=== PATIENT | female | born 1940 | race Caucasian/White ===

== ENCOUNTER → 2016-10-04 | Outpatient (CLI) | payer OTHER ==
[~2016-10-04] MED LIST: ASPI81CH45 OR; ATEN-60; ESOM20CA OR; EZET10TA2; LORAZAPAM
[2016-10-04 10:44] LABS: Albumin 3.7 g/dL (3.4-5.0); BUN/Creatinine Ratio 17.9; Bilirubin, Total 0.6 mg/dL (0.2-1.0); Calcium 8.8 mg/dL (8.5-10.1); Potassium 4.1 mmol/L (3.5-5.1); Total Protein 6.8 g/dL (6.4-8.2)
[2016-10-04 10:52] LABS: Basophils # (auto) 0 uL; Basophils % (auto) 0.4 % (0.0-2.0); Eosinophils # (auto) 0.2 uL; Eosinophils % (auto) 2.5 % (0.0-7.0); Hematocrit 41.9 % (36.0-46.0); Hemoglobin 13.7 g/dL (12.2-16.2); Lymphocytes # (auto) 1.7 uL; Lymphocytes % (auto) 25.1 % (10.0-50.0); Mean Corpuscular Hemoglobin 31.4 pg (28.0-32.0); Mean Corpuscular Hgb Conc. 32.7 g/dL (32.0-36.0); Monocytes # (auto) 0.4 uL; Monocytes % (auto) 5.5 % (0.0-12.0); Neutrophils # (auto) 4.5 uL; Neutrophils % (auto) 66.5 % (37.0-80.0); Platelet Count (auto) 236 10^3/uL (140-450); Red Cell Distribution Width 13.4 % (11.6-16.0); White Blood Cell 6.8 10^3/uL (4.4-10.8)
== END | disposition home or self-care (01) ==
LOC: LAB 09:17
PROVIDERS: ATTEND Internal Medicine
DX: I10 Essential (primary) hypertension (principal); R10.9 Unspecified abdominal pain
CPT/HCPCS: 36415; 80053; 84439; 84443; 85025; 85652; 86141

== ENCOUNTER → 2016-10-29 | Outpatient (CLI) | payer OTHER ==
[~2016-10-29] VITALS: Ht 160 cm; Wt 63.5 kg
[~2016-10-29] MED LIST changes: +ADENOSINE 53 MG in GIVE UN-DILUTED 0 ML IV STA
== END | disposition home or self-care (01) ==
LOC: XYW 08:12
PROVIDERS: ATTEND Internal Medicine Cardiovascular Disease
DX: I34.0 Nonrheumatic mitral (valve) insufficiency (principal)
CPT/HCPCS: 93017; 93306; J0153

== ENCOUNTER → 2016-10-30 | Outpatient (CLI) | payer OTHER ==
[~2016-10-30] MED LIST changes: -ADENOSINE 53 MG in GIVE UN-DILUTED 0 ML IV STA
== END | disposition home or self-care (01) ==
LOC: LAB 12:52
PROVIDERS: ATTEND Internal Medicine
DX: R10.9 Unspecified abdominal pain (principal)
CPT/HCPCS: 36415; 82565; 84520

== ENCOUNTER 2016-11-05 11:10 | Inpatient (IN) | payer OTHER ==
[~2016-11-05] VITALS: Ht 160 cm; Wt 72.2 kg
[~2016-11-05 11:10] MED LIST changes: -ATEN-60; +ATEN-60 PO
[2016-11-05 12:10] LABS: Basophils # (auto) 0 uL; Basophils % (auto) 0.4 % (0.0-2.0); Eosinophils # (auto) 0.1 uL; Hematocrit 40.6 % (36.0-46.0); Hemoglobin 13.5 g/dL (12.2-16.2); Lymphocytes # (auto) 1.5 uL; Lymphocytes % (auto) 25.1 % (10.0-50.0); Mean Corpuscular Hemoglobin 31.5 pg (28.0-32.0); Mean Corpuscular Hgb Conc. 33.3 g/dL (32.0-36.0); Mean Corpuscular Volume 94.5 fL (80.0-100.0); Mean Platelet Volume 7.4 fL (7.4-10.4); Monocytes # (auto) 0.4 uL; Monocytes % (auto) 6.3 % (0.0-12.0); Neutrophils % (auto) 66.2 % (37.0-80.0); Platelet Count (auto) 280 10^3/uL (140-450); Red Cell Distribution Width 13.6 % (11.6-16.0); White Blood Cell 6.1 10^3/uL (4.4-10.8)
[2016-11-05 12:28] LABS: Albumin 3.7 g/dL (3.4-5.0); BUN/Creatinine Ratio 12.3; Calcium 8.6 mg/dL (8.5-10.1)
[2016-11-05 12:31] LABS: Bilirubin, Total 0.5 mg/dL (0.2-1.0); Total Protein 7.1 g/dL (6.4-8.2)
[2016-11-05] MEDS ORDERED: ONDANSETRON HCL 4 MG/2 ML VIAL IV ONE (13:15)
[2016-11-05] MEDS ORDERED: MORPHINE SULF INJ 2 MG/ML SYRINGE 1ML IV ONE (13:15)
[2016-11-05] MEDS ORDERED: TRAM50TA2 PO (13:27)
[2016-11-05] MEDS ORDERED: ATOR10TA52 PO (13:27)
[2016-11-05] MEDS ORDERED: CYCL1TAB18 PO (13:27)
[2016-11-05] MEDS ORDERED: NOR5T PO (13:29)
[2016-11-05] MEDS ORDERED: OMEP20CA5 PO (13:29)
[2016-11-05] MEDS ORDERED: CLON05T PO (13:29)
[2016-11-05 13:46] LABS: INR 0.94 (0.9-1.15); Prothrombin Time 10.1 sec (9.37-12.3)
[2016-11-05] MEDS ORDERED: HYDROmorphone HCL 2 MG/ML VL IV ONE (14:30)
[2016-11-05] MEDS ORDERED: ATENOLOL 50 MG TAB PO ONE ×2 (14:45→15:15)
[2016-11-05] MEDS ORDERED: ONDANSETRON HCL 4 MG/2 ML VIAL IV PRN (14:45)
[2016-11-05 14:52] LABS: Urine Bilirubin Negative (Negative); Urine Blood Negative /uL (Negative); Urine Color Yellow (Yellow); Urine Glucose Normal (Normal); Urine Ketone Negative (Negative); Urine RBC <1 /hpf (0 - 4); Urine Squamous Epithelial Cell FEW /hpf (<5); Urine Urobilinogen Normal (Negative); Urine pH 6.5 (5.0-8.0)
[2016-11-05 14:54] LABS: Urine Nitrite POSITIVE (Negative)
[2016-11-05] MEDS ORDERED: LORazepam 2MG/ML-1ML VIAL IV ONE (15:15)
[2016-11-05] MEDS ORDERED: PANTOPRAZOLE 40 MG TAB PO ONE (15:15)
[2016-11-05] MEDS: SODIUM CHLORIDE 0.9% 1,000 ML IV SCH (15:26)
[2016-11-05 16:00] VITALS: BP 146/86
[2016-11-05 17:30] VITALS: BP 146/86
[2016-11-05 21:48] VITALS: BP 148/88
[2016-11-05] MEDS: MORPHINE SULF INJ 2 MG/ML SYRINGE 1ML IV PRN (22:50)
[2016-11-05] MEDS: clonazePAM 0.5 MG TAB PO PRN (23:31)
[2016-11-06 04:37] VITALS: BP 133/74
[2016-11-06] MEDS: SODIUM CHLORIDE 0.9% 1,000 ML IV SCH (07:25)
[2016-11-06 08:00] VITALS: BP 146/91
[2016-11-06 09:00] VITALS: BP 146/91
[2016-11-06] MEDS: PANTOPRAZOLE 40 MG TAB PO SCH (10:22)
[2016-11-06] MEDS: ATENOLOL 50 MG TAB PO SCH (10:22)
[2016-11-06] MEDS: HYDROcodone-ACET 5/325MG TAB PO PRN ×2 (10:23→22:31)
[2016-11-06 17:00] VITALS: BP 134/80
[2016-11-06 22:00] VITALS: BP 144/85
[2016-11-06] MEDS: clonazePAM 0.5 MG TAB PO PRN (22:31)
[2016-11-07] MEDS: SODIUM CHLORIDE 0.9% 1,000 ML IV SCH ×3 (00:27→21:24)
[2016-11-07 05:00] VITALS: BP 116/65
[2016-11-07 08:00] VITALS: BP 120/69
[2016-11-07 09:00] VITALS: BP 120/69
[2016-11-07] MEDS: PANTOPRAZOLE 40 MG TAB PO SCH (09:43)
[2016-11-07] MEDS: ATENOLOL 50 MG TAB PO SCH (09:43)
[2016-11-07] MEDS: MORPHINE SULF INJ 2 MG/ML SYRINGE 1ML IV PRN (09:44)
[2016-11-07] MEDS: HYDROmorphone HCL 2 MG/ML VL IV PRN (12:51)
[2016-11-07] MEDS ORDERED: ceFAZolin 1GM/50ML D5W 50 ML IV ONE (14:06)
[2016-11-07] MEDS ORDERED: HYDROmorphone HCL 2 MG/ML VL IV PRN (16:30)
[2016-11-07] MEDS ORDERED: ONDANSETRON HCL 4 MG/2 ML VIAL IV ONE (16:30)
[2016-11-07] MEDS ORDERED: ENOXAPARIN SOD 40 MG/0.4 ML SYRINGE SC ONE (16:45)
[2016-11-07] MEDS: ceFAZolin 1GM/50ML D5W 50 ML IV SCH ×2 (17:51→23:54)
[2016-11-07] MEDS: clonazePAM 0.5 MG TAB PO PRN (21:24)
[2016-11-07] MEDS: HYDROcodone-ACET 5/325MG TAB PO PRN (21:24)
[2016-11-07 22:12] VITALS: BP 150/88
[2016-11-08] MEDS: HYDROmorphone HCL 2 MG/ML VL IV PRN
[2016-11-08 05:08] VITALS: BP 136/81
[2016-11-08] MEDS: ceFAZolin 1GM/50ML D5W 50 ML IV SCH ×3 (05:22→17:26)
[2016-11-08 06:10] LABS: Basophils # (auto) 0 uL; Basophils % (auto) 0.1 % (0.0-2.0); Eosinophils # (auto) 0 uL; Hematocrit 38.2 % (36.0-46.0); Hemoglobin 12.9 g/dL (12.2-16.2); Lymphocytes # (auto) 1.2 uL; Lymphocytes % (auto) 13.3 % (10.0-50.0); Mean Corpuscular Hemoglobin 31.7 pg (28.0-32.0); Mean Corpuscular Hgb Conc. 33.7 g/dL (32.0-36.0); Mean Corpuscular Volume 94.2 fL (80.0-100.0); Mean Platelet Volume 7.6 fL (7.4-10.4); Monocytes # (auto) 0.3 uL; Monocytes % (auto) 3.5 % (0.0-12.0); Neutrophils # (auto) 7.6 uL; Neutrophils % (auto) 83.1 % (37.0-80.0); Platelet Count (auto) 275 10^3/uL (140-450); Red Cell Distribution Width 13.3 % (11.6-16.0); White Blood Cell 9.2 10^3/uL (4.4-10.8)
[2016-11-08 06:28] LABS: Calcium 8.2 mg/dL (8.5-10.1); Potassium 4.1 mmol/L (3.5-5.1)
[2016-11-08 06:32] LABS: BUN/Creatinine Ratio 18.3
[2016-11-08 07:40] VITALS: BP 132/79
[2016-11-08 09:00] VITALS: BP 132/79
[2016-11-08] MEDS: ENOXAPARIN SOD 40 MG/0.4 ML SYRINGE SC SCH (10:31)
[2016-11-08] MEDS: PANTOPRAZOLE 40 MG TAB PO SCH (10:31)
[2016-11-08] MEDS: ATENOLOL 50 MG TAB PO SCH (10:33)
[2016-11-08] MEDS: HYDROcodone-ACET 5/325MG TAB PO PRN ×2 (11:47→21:29)
[2016-11-08 13:00] VITALS: BP 145/75
[2016-11-08 18:03] VITALS: BP 141/73
[2016-11-08] MEDS ORDERED: LACTULOSE 20Gm/30ML SOLN PO ONE (19:00)
[2016-11-08] MEDS: clonazePAM 0.5 MG TAB PO PRN (21:28)
[2016-11-08 21:38] VITALS: BP 141/75
[2016-11-09 04:42] VITALS: BP 135/76
[2016-11-09 06:36] LABS: Hemoglobin 12.7 g/dL (12.2-16.2)
[2016-11-09 08:00] VITALS: BP 128/78
[2016-11-09 09:01] VITALS: BP 128/78
[2016-11-09] MEDS: PANTOPRAZOLE 40 MG TAB PO SCH (10:16)
[2016-11-09] MEDS: ATENOLOL 50 MG TAB PO SCH (10:20)
[2016-11-09] MEDS: ENOXAPARIN SOD 40 MG/0.4 ML SYRINGE SC SCH (10:21)
[2016-11-09] MEDS: HYDROcodone-ACET 5/325MG TAB PO PRN ×2 (10:21→20:15)
[2016-11-09 13:09] VITALS: BP 130/80
[2016-11-09 17:10] VITALS: BP 131/87
[2016-11-09] MEDS: clonazePAM 0.5 MG TAB PO PRN (21:47)
[2016-11-09 22:00] VITALS: BP 151/77
[2016-11-10] VITALS (7 sets, daily range): BP systolic 130–149; BP diastolic 73–99
[2016-11-10] MEDS: HYDROcodone-ACET 5/325MG TAB PO PRN ×2 (04:42→23:03)
[2016-11-10 06:44] LABS: Hematocrit 35.8 % (36.0-46.0); Hemoglobin 11.9 g/dL (12.2-16.2)
[2016-11-10] MEDS: ATENOLOL 50 MG TAB PO SCH (10:22)
[2016-11-10] MEDS: PANTOPRAZOLE 40 MG TAB PO SCH (10:22)
[2016-11-10] MEDS: ENOXAPARIN SOD 40 MG/0.4 ML SYRINGE SC SCH (10:23)
[2016-11-10] MEDS: clonazePAM 0.5 MG TAB PO PRN (23:03)
[2016-11-11 05:17] VITALS: BP 133/84
[2016-11-11 07:38] LABS: Hematocrit 35.1 % (36.0-46.0); Hemoglobin 11.7 g/dL (12.2-16.2)
[2016-11-11 08:00] VITALS: BP 132/81
[2016-11-11] MEDS: HYDROcodone-ACET 5/325MG TAB PO PRN (08:53)
[2016-11-11] MEDS: PANTOPRAZOLE 40 MG TAB PO SCH (08:54)
[2016-11-11] MEDS: ATENOLOL 50 MG TAB PO SCH (08:54)
[2016-11-11] MEDS: ENOXAPARIN SOD 40 MG/0.4 ML SYRINGE SC SCH (08:55)
[2016-11-11 09:00] VITALS: BP 132/81
[2016-11-11 13:00] VITALS: BP 155/98
[2016-11-11 13:06] VITALS: BP 132/81
[2016-11-11 17:00] VITALS: BP 161/85
== END 2016-11-11 17:15 | disposition home or self-care (01) | DRG 482 ==
LOC: ER 11:12 → TELE 11:13 → WEST WING 15:40
PROVIDERS: ADMIT Internal Medicine; ATTEND Internal Medicine
PROC: 0QS704Z Reposition Left Upper Femur with Internal Fixation Device, Open Approach (ICD-10-PCS; principal; 2016-11-07 15:07)
DX: S72.032A Displaced midcervical fracture of left femur, initial encounter for closed fracture (principal); E78.5 Hyperlipidemia, unspecified; I10 Essential (primary) hypertension; W18.11XA Fall from or off toilet without subsequent striking against object, initial encounter; Z90.89 Acquired absence of other organs; Y93.89 Activity, other specified; Y92.89 Other specified places as the place of occurrence of the external cause; Y99.8 Other external cause status; Z79.899 Other long term (current) drug therapy
CPT/HCPCS: 36415; 51702; 71010; 72192; 73501; 73502; 73721; 76000; 80048; 80053; 81001; 83735; 85014; 85018; 85025; 85610; 85730; 93005; 93970; 94761; 96374; 96375; 97110; 97116; 97530; C1713; J0690; J2405

== ENCOUNTER → 2017-04-09 | Outpatient (CLI) | payer OTHER ==
[~2017-04-09] MED LIST changes: +ATOR10TA52 PO; +CLON05T PO; +CYCL1TAB18 PO; -ESOM20CA OR; -EZET10TA2; +HYDR-4663 PO; -LORAZAPAM; +OMEP20CA74 PO; +TRAM50TA2 PO
[2017-04-09 09:35] LABS: Basophils # (auto) 0 uL; Basophils % (auto) 0.4 % (0.0-2.0); Eosinophils # (auto) 0.1 uL; Eosinophils % (auto) 1.5 % (0.0-7.0); Hematocrit 41.4 % (36.0-46.0); Hemoglobin 13.9 g/dL (12.2-16.2); Lymphocytes # (auto) 1.8 uL; Lymphocytes % (auto) 21.9 % (10.0-50.0); Mean Corpuscular Hemoglobin 33.1 pg (28.0-32.0); Mean Corpuscular Hgb Conc. 33.5 g/dL (32.0-36.0); Mean Corpuscular Volume 98.7 fL (80.0-100.0); Mean Platelet Volume 7.1 fL (6.9-10.8); Monocytes # (auto) 0.4 uL; Monocytes % (auto) 5.4 % (0.0-12.0); Neutrophils # (auto) 5.9 uL; Neutrophils % (auto) 70.8 % (37.0-80.0); Platelet Count (auto) 211 10^3/uL (140-450); Red Cell Distribution Width 13.3 % (11.8-14.3); White Blood Cell 8.3 10^3/uL (4.4-10.8)
[2017-04-09 10:10] LABS: Urine Bilirubin Negative (Negative); Urine Blood Negative /uL (Negative); Urine Color Yellow (Yellow); Urine Glucose Normal (Normal); Urine Ketone Negative (Negative); Urine Mucus FEW (None Seen); Urine Nitrite POSITIVE (Negative); Urine RBC 1 /hpf (0 - 4); Urine Squamous Epithelial Cell MOD /hpf (<5); Urine Urobilinogen Normal (Negative)
[2017-04-09 10:32] LABS: Albumin 3.9 g/dL (3.4-5.0); BUN/Creatinine Ratio 19.2; Bilirubin, Total 0.4 mg/dL (0.2-1.0); Calcium 8.8 mg/dL (8.5-10.1); Potassium 4.2 mmol/L (3.5-5.1); Total Protein 7.3 g/dL (6.4-8.2)
== END | disposition home or self-care (01) ==
LOC: LAB 09:09
PROVIDERS: ATTEND Internal Medicine
DX: I10 Essential (primary) hypertension (principal); R51 Headache
CPT/HCPCS: 36415; 80053; 80061; 81001; 82043; 84439; 84443; 85025; 85652; 86141

== ENCOUNTER 2017-07-23 21:27 | Emergency (ER) | payer OTHER ==
[~2017-07-23] VITALS: Ht 162.6 cm; Wt 62.6 kg
[~2017-07-23 21:27] MED LIST changes: -HYDR-4663 PO; +HYDR-4683 PO
[2017-07-23 23:02] LABS: Basophils # (auto) 0 uL; Basophils % (auto) 0.6 % (0.0-2.0); Eosinophils # (auto) 0.1 uL; Eosinophils % (auto) 1.4 % (0.0-7.0); Hematocrit 39.8 % (36.0-46.0); Hemoglobin 13.3 g/dL (12.2-16.2); Lymphocytes # (auto) 2.3 uL; Lymphocytes % (auto) 33.1 % (10.0-50.0); Mean Corpuscular Hemoglobin 32.6 pg (28.0-32.0); Mean Corpuscular Hgb Conc. 33.4 g/dL (32.0-36.0); Mean Corpuscular Volume 97.6 fL (80.0-100.0); Monocytes # (auto) 0.6 uL; Monocytes % (auto) 8.6 % (0.0-12.0); Neutrophils % (auto) 56.3 % (37.0-80.0); Nucleated Red Blood Cells % 0.1 %; Platelet Count (auto) 220 10^3/uL (140-450); Red Blood Cells 4.08 10^6/uL (4.0-5.20); Red Cell Distribution Width 13.4 % (11.8-14.3)
[2017-07-23 23:14] LABS: Alanine Aminotransferase 50 U/L (13-56); Albumin 3.6 g/dL (3.4-5.0); Amylase 38 U/L (25-115); Anion Gap 5 (5-15); Aspartate Aminotransferase 43 U/L (15-37); BUN/Creatinine Ratio 14.8; Blood Urea Nitrogen 13 mg/dL (7-18); Calcium 8.5 mg/dL (8.5-10.1); Carbon Dioxide 28 mmol/L (21-32); Chloride 107 mmol/L (98-107); GFR African American 80 mL/min; GFR Non-African American 66 mL/min; Glucose 103 mg/dL (74-106); Lipase 96 U/L (73-393); Potassium 4.2 mmol/L (3.5-5.1); Sodium 140 mmol/L (136-145)
[2017-07-23 23:15] LABS: Urine Bacteria NONE SEEN /hpf (None Seen); Urine Blood TRACE /uL (Negative); Urine Specific Gravity 1.014 (1.001-1.035); Urine WBC 3 /hpf (0 - 5)
[2017-07-23 23:18] LABS: Alkaline Phosphatase 96 U/L (45-117); Bilirubin, Total 0.3 mg/dL (0.2-1.0)
[2017-07-24 00:17] LABS: INR 0.91 (0.9-1.15); Partial Thromboplastin Time 26.2 sec (22.64-33.71); Prothrombin Time 9.9 sec (9.37-12.3)
[2017-07-24 05:25] VITALS: BP 179/82
[2017-07-24] MEDS ORDERED: traMADol HCL 50 MG TAB PO ONE (05:45)
[2017-07-24] MEDS ORDERED: traMADol HCL 50 MG TAB ONE (05:45)
[2017-07-24] MEDS ORDERED: cloNIDine HCL 0.1 MG TAB ONE (06:27)
[2017-07-24] MEDS ORDERED: cloNIDine HCL 0.1 MG TAB PO ONE (06:45)
== END 2017-07-24 07:18 | disposition home or self-care (01) ==
LOC: ER 21:27
DX: B02.9 Zoster without complications (principal); N39.0 Urinary tract infection, site not specified; K57.90 Diverticulosis of intestine, part unspecified, without perforation or abscess without bleeding; R91.1 Solitary pulmonary nodule; E78.00 Pure hypercholesterolemia, unspecified; I10 Essential (primary) hypertension; Z90.89 Acquired absence of other organs; Z79.82 Long term (current) use of aspirin; Z79.899 Other long term (current) drug therapy
CPT/HCPCS: 36415; 74176; 80053; 81001; 82150; 83690; 84484; 84702; 85025; 85610; 85730; 93005

== ENCOUNTER 2017-11-12 11:11 | Emergency (ER) | payer OTHER ==
[~2017-11-12] VITALS: Ht 160 cm; Wt 62.6 kg
[2017-11-12 11:57] LABS: Urine Bacteria FEW /hpf (None Seen); Urine Blood TRACE /uL (Negative); Urine Specific Gravity 1.008 (1.001-1.035); Urine WBC 9 /hpf (0 - 5)
[2017-11-12 12:22] LABS: Albumin 3.9 g/dL (3.4-5.0); Anion Gap 9 (5-15); Basophils # (auto) 0 uL; Basophils % (auto) 0.6 % (0.0-2.0); Blood Urea Nitrogen 13 mg/dL (7-18); Calcium 8.7 mg/dL (8.5-10.1); Carbon Dioxide 23 mmol/L (21-32); Chloride 109 mmol/L (98-107); Eosinophils # (auto) 0.1 uL; Eosinophils % (auto) 1.2 % (0.0-7.0); Glucose 116 mg/dL (74-106); Hematocrit 41.7 % (36.0-46.0); Lymphocytes # (auto) 1.7 uL; Lymphocytes % (auto) 22.6 % (10.0-50.0); Magnesium 2.6 mg/dL (1.6-2.6); Mean Corpuscular Hgb Conc. 33.6 g/dL (32.0-36.0); Mean Corpuscular Volume 98.2 fL (80.0-100.0); Monocytes # (auto) 0.6 uL; Monocytes % (auto) 7.3 % (0.0-12.0); Neutrophils # (auto) 5.3 uL; Neutrophils % (auto) 68.3 % (37.0-80.0); Nucleated Red Blood Cells % 0.1 %; Platelet Count (auto) 217 10^3/uL (140-450); Potassium 4.2 mmol/L (3.5-5.1); Red Blood Cells 4.25 10^6/uL (4.0-5.20); Red Cell Distribution Width 13.2 % (11.8-14.3); Sodium 141 mmol/L (136-145); White Blood Cell 7.7 10^3/uL (4.4-10.8)
[2017-11-12 12:24] LABS: Alanine Aminotransferase 30 U/L (13-56); Aspartate Aminotransferase 22 U/L (15-37); BUN/Creatinine Ratio 15.9; GFR African American 87 mL/min; GFR Non-African American 72 mL/min
[2017-11-12 12:29] LABS: Alkaline Phosphatase 103 U/L (45-117); Bilirubin, Total 0.5 mg/dL (0.2-1.0); Total Protein 7.4 g/dL (6.4-8.2)
[2017-11-12 17:48] VITALS: BP 150/78
[2017-11-12] MEDS ORDERED: cefTRIAXone W LIDOCAINE 1 GM IM IM ONE (18:00)
== END 2017-11-12 19:06 | disposition home or self-care (01) ==
LOC: ER 11:11
DX: J44.9 Chronic obstructive pulmonary disease, unspecified (principal); N39.0 Urinary tract infection, site not specified; I10 Essential (primary) hypertension; E78.5 Hyperlipidemia, unspecified
CPT/HCPCS: 36415; 71046; 80053; 81001; 83735; 83880; 84484; 85025; 85379; 93005; 96372

== ENCOUNTER 2018-04-03 08:00 | Day surgery (SDC) | payer OTHER ==
[2018-03-30 10:44] LABS: Basophils # (auto) 0.1 uL; Basophils % (auto) 0.7 % (0.0-2.0); Eosinophils # (auto) 0.2 uL; Eosinophils % (auto) 2.1 % (0.0-7.0); Hematocrit 42.4 % (36.0-46.0); Hemoglobin 13.8 g/dL (12.2-16.2); Lymphocytes # (auto) 2.8 uL; Mean Corpuscular Hemoglobin 31.6 pg (28.0-32.0); Mean Corpuscular Hgb Conc. 32.6 g/dL (32.0-36.0); Monocytes # (auto) 0.6 uL; Monocytes % (auto) 8.6 % (0.0-12.0); Neutrophils # (auto) 3.6 uL; Neutrophils % (auto) 49.6 % (37.0-80.0); Platelet Count (auto) 219 10^3/uL (140-450); Red Blood Cells 4.37 10^6/uL (4.0-5.20); Red Cell Distribution Width 13.8 % (11.8-14.3); White Blood Cell 7.3 10^3/uL (4.4-10.8)
[2018-03-30 11:05] LABS: INR 0.91 (0.9-1.15); Partial Thromboplastin Time 25.8 sec (23.78-33.04); Prothrombin Time 9.8 sec (9.27-12.13)
[~2018-04-03] VITALS: Ht 160 cm; Wt 61.2 kg
[~2018-04-03 08:00] MED LIST changes: -CYCL1TAB18 PO; +LACT10SO66 PO; -TRAM50TA2 PO
[2018-04-03] MEDS ORDERED: diphenhdrAMINE HCL 50 MG/1 ML VL ONE (08:19)
[2018-04-03] MEDS ORDERED: SODIUM CHLORIDE LOCK 10 ML ONE (08:19)
[2018-04-03] MEDS ORDERED: LIDOCAINE VISCOUS 2% 15ML UD ONE (08:19)
[2018-04-03] MEDS ORDERED: NALOXONE HCL 0.4 MG/ML VIAL ONE (08:20)
[2018-04-03] MEDS ORDERED: FLUMAZENIL 0.1 MG/ML INJ 10ML MDV IV ONE (08:20)
[2018-04-03] MEDS: fentaNYL CITRATE 100 MCG/2 ML VL ONE ×2 (08:54→08:57)
[2018-04-03] MEDS: MIDAZOLAM HCL 5 MG/ML-1ML VIAL ONE ×2 (08:54→08:57)
[2018-04-03 09:34] VITALS: BP 133/80
== END 2018-04-03 09:40 | disposition home or self-care (01) ==
LOC: GI 08:00
PROVIDERS: ATTEND Internal Medicine Gastroenterology
DX: K44.9 Diaphragmatic hernia without obstruction or gangrene (principal); I20.9 Angina pectoris, unspecified; Z98.890 Other specified postprocedural states
CPT/HCPCS: 36415; 43235; 85025; 85610; 85730; A6257; J2250; J3010; J7030

== ENCOUNTER 2018-05-24 00:36 | Inpatient (IN) | payer MEDICARE, OTHER ==
[~2018-05-24] VITALS: Ht 160 cm; Wt 63.2 kg
[2018-05-24] MEDS ORDERED: ETOMIDATE (2MG/ML) 20ML VIAL IV ONE ×2 (01:45→05:00)
[2018-05-24] MEDS ORDERED: MORPHINE SULFATE 4 MG/ML SYR/VIAL ONE (03:02)
[2018-05-24] MEDS ORDERED: ONDANSETRON HCL 4 MG/2 ML VIAL ONE (03:02)
[2018-05-24] MEDS ORDERED: LORazepam 2MG/ML-1ML VIAL ONE (03:09)
[2018-05-24] MEDS ORDERED: ONDANSETRON HCL 4 MG/2 ML VIAL IV ONE ×2 (05:00→12:45)
[2018-05-24] MEDS ORDERED: MORPHINE SULFATE 4 MG/ML SYR/VIAL IV ONE ×2 (05:00→14:00)
[2018-05-24] MEDS ORDERED: LORazepam 2MG/ML-1ML VIAL IV ONE (05:00)
[2018-05-24] MEDS ORDERED: ACETAMINOPHEN 325 MG TAB PO PRN (05:45)
[2018-05-24] MEDS ORDERED: MORPHINE SULFATE 4 MG/ML SYR/VIAL IV PRN ×3 (05:45→13:45)
[2018-05-24] MEDS ORDERED: ONDANSETRON HCL 4 MG/2 ML VIAL IV PRN (05:45)
[2018-05-24 07:30] VITALS: BP 116/70
[2018-05-24 09:00] VITALS: BP 116/70
[2018-05-24 09:58] LABS: Basophils # (auto) 0 uL; Basophils % (auto) 0.2 % (0.0-2.0); Eosinophils # (auto) 0 uL; Eosinophils % (auto) 0.3 % (0.0-7.0); Hemoglobin 12.9 g/dL (12.2-16.2); Lymphocytes # (auto) 1.6 uL; Lymphocytes % (auto) 14.7 % (10.0-50.0); Mean Corpuscular Hemoglobin 32.2 pg (28.0-32.0); Mean Corpuscular Volume 97.3 fL (80.0-100.0); Monocytes # (auto) 1.1 uL; Monocytes % (auto) 9.7 % (0.0-12.0); Neutrophils # (auto) 8.4 uL; Neutrophils % (auto) 75.1 % (37.0-80.0); Nucleated Red Blood Cells % 0.1 %; Platelet Count (auto) 207 10^3/uL (140-450); Red Cell Distribution Width 13.8 % (11.8-14.3); White Blood Cell 11.1 10^3/uL (4.4-10.8)
[2018-05-24] MEDS: ATENOLOL 25 MG TAB PO SCH ×3 (10:00→22:07)
[2018-05-24 10:06] LABS: Albumin 3.6 g/dL (3.4-5.0); Calcium 8.1 mg/dL (8.5-10.1); Potassium 3.6 mmol/L (3.5-5.1)
[2018-05-24] MEDS: ENOXAPARIN SOD 40 MG/0.4 ML SYRINGE SC SCH (10:09)
[2018-05-24 10:10] LABS: Bilirubin, Total 0.5 mg/dL (0.2-1.0); Total Protein 6.8 g/dL (6.4-8.2)
[2018-05-24] MEDS ORDERED: PANT40TA2 PO (11:13)
[2018-05-24] MEDS ORDERED: HYDR-4683 PO (11:23)
[2018-05-24] MEDS ORDERED: ATOR10TA PO (11:27)
[2018-05-24] MEDS ORDERED: CLON05T PO (11:27)
[2018-05-24 12:13] LABS: INR 0.9 (0.9-1.15); Partial Thromboplastin Time 24.5 sec (23.78-33.04); Prothrombin Time 9.7 sec (9.27-12.13)
[2018-05-24] MEDS ORDERED: KETOROLAC TROMETH 30 MG/ML 1ML VIAL IV ONE (12:45)
[2018-05-24] MEDS ORDERED: LABETALOL HCL 5 MG/ML 4ML SYRINGE IV PRN (12:45)
[2018-05-24] MEDS ORDERED: MIDAZOLAM HCL 1MG/1ML-2 ML VIAL IV PRN (12:45)
[2018-05-24] MEDS ORDERED: ePHEDrine SULFATE 50 MG/ML AMP IV PRN (12:45)
[2018-05-24] MEDS ORDERED: HYDROmorphone HCL 2 MG/ML VL IV PRN (12:45)
[2018-05-24] MEDS ORDERED: fentaNYL CITRATE 100 MCG/2 ML VL ONE (12:57)
[2018-05-24] MEDS ORDERED: MIDAZOLAM HCL 1MG/1ML-2 ML VIAL ONE (12:57)
[2018-05-24 13:00] VITALS: BP 135/72
[2018-05-24] MEDS ORDERED: DEXAMETHASONE SOD PHOS 10MG/1ML VIAL INJ ONE (13:03)
[2018-05-24] MEDS ORDERED: PROPOFOL 10 MG/ML 20 ML IV ONE (13:03)
[2018-05-24] MEDS ORDERED: NITROGLYCERIN 0.4 MG SL TAB SL PRN (13:45)
[2018-05-24 17:00] VITALS: BP 134/76
[2018-05-24 22:00] VITALS: BP 143/78
[2018-05-24] MEDS: ATORVASTATIN 20 MG TAB PO SCH (22:06)
[2018-05-24] MEDS ORDERED: TEMAZEPAM 15 MG CAP PO ONE (22:45)
[2018-05-25 05:11] VITALS: BP 116/67
[2018-05-25 06:19] LABS: Basophils # (auto) 0 uL; Basophils % (auto) 0.1 % (0.0-2.0); Eosinophils # (auto) 0 uL; Hematocrit 37.8 % (36.0-46.0); Hemoglobin 12.6 g/dL (12.2-16.2); Lymphocytes % (auto) 10.6 % (10.0-50.0); Mean Corpuscular Hemoglobin 32.8 pg (28.0-32.0); Mean Corpuscular Hgb Conc. 33.4 g/dL (32.0-36.0); Mean Corpuscular Volume 98.1 fL (80.0-100.0); Monocytes # (auto) 0.6 uL; Monocytes % (auto) 6.8 % (0.0-12.0); Neutrophils # (auto) 7.7 uL; Neutrophils % (auto) 82.5 % (37.0-80.0); Platelet Count (auto) 199 10^3/uL (140-450); Red Blood Cells 3.85 10^6/uL (4.0-5.20); Red Cell Distribution Width 13.9 % (11.8-14.3); White Blood Cell 9.4 10^3/uL (4.4-10.8)
[2018-05-25] MEDS: PANTOPRAZOLE 40 MG TAB PO SCH (06:19)
[2018-05-25 06:31] LABS: Albumin 3.2 g/dL (3.4-5.0); Calcium 8.4 mg/dL (8.5-10.1); Potassium 4.3 mmol/L (3.5-5.1)
[2018-05-25 06:34] LABS: Bilirubin, Total 0.9 mg/dL (0.2-1.0); Total Protein 6.6 g/dL (6.4-8.2)
[2018-05-25] MEDS: HYDROcodone-ACET 5/325MG TAB PO PRN ×2 (08:29→18:16)
[2018-05-25 09:00] VITALS: BP 144/78
[2018-05-25] MEDS: ATENOLOL 25 MG TAB PO SCH ×2 (10:38→21:56)
[2018-05-25] MEDS: ENOXAPARIN SOD 40 MG/0.4 ML SYRINGE SC SCH (10:38)
[2018-05-25 12:46] VITALS: BP 144/76
[2018-05-25 16:57] VITALS: BP 134/60
[2018-05-25] MEDS: DOCUSATE SOD 100 MG CAP PO PRN (18:16)
[2018-05-25] MEDS: ATORVASTATIN 20 MG TAB PO SCH (21:56)
[2018-05-25 21:58] VITALS: BP 123/66
[2018-05-26] MEDS ORDERED: TEMAZEPAM 15 MG CAP PO ONE (00:45)
[2018-05-26 05:00] VITALS: BP 142/74
[2018-05-26 05:44] LABS: Basophils # (auto) 0 uL; Basophils % (auto) 0.1 % (0.0-2.0); Eosinophils # (auto) 0 uL; Eosinophils % (auto) 0.4 % (0.0-7.0); Hematocrit 34.6 % (36.0-46.0); Hemoglobin 11.7 g/dL (12.2-16.2); Lymphocytes # (auto) 1.7 uL; Lymphocytes % (auto) 19.2 % (10.0-50.0); Mean Corpuscular Hemoglobin 32.9 pg (28.0-32.0); Mean Corpuscular Hgb Conc. 33.7 g/dL (32.0-36.0); Mean Corpuscular Volume 97.6 fL (80.0-100.0); Monocytes # (auto) 0.9 uL; Monocytes % (auto) 10.2 % (0.0-12.0); Neutrophils % (auto) 70.1 % (37.0-80.0); Platelet Count (auto) 184 10^3/uL (140-450); Red Blood Cells 3.55 10^6/uL (4.0-5.20); White Blood Cell 8.6 10^3/uL (4.4-10.8)
[2018-05-26] MEDS: DOCUSATE SOD 100 MG CAP PO PRN (06:14)
[2018-05-26] MEDS: PANTOPRAZOLE 40 MG TAB PO SCH (06:14)
[2018-05-26] MEDS: HYDROcodone-ACET 5/325MG TAB PO PRN (06:15)
[2018-05-26 09:00] VITALS: BP 138/86
[2018-05-26] MEDS: ATENOLOL 25 MG TAB PO SCH (10:37)
[2018-05-26] MEDS: ENOXAPARIN SOD 40 MG/0.4 ML SYRINGE SC SCH (10:38)
[2018-05-26 11:16] VITALS: BP 138/86
[2018-05-26 13:00] VITALS: BP 129/73
== END 2018-05-26 13:35 | disposition home or self-care (01) | DRG 563 ==
LOC: ER 00:36 → EDBD 00:36 → MERGE 03:46 → OVERFLOW 03:46 → WEST WING 09:07 → TELE-WESTW 19:06
PROVIDERS: ADMIT Nurse Practitioner; ATTEND Family Medicine
PROC: 0RSJXZZ Reposition Right Shoulder Joint, External Approach (ICD-10-PCS; principal; 2018-05-25)
DX: S42.251A Displaced fracture of greater tuberosity of right humerus, initial encounter for closed fracture (principal); E78.00 Pure hypercholesterolemia, unspecified; E78.5 Hyperlipidemia, unspecified; I10 Essential (primary) hypertension; M19.019 Primary osteoarthritis, unspecified shoulder; S06.0X0A Concussion without loss of consciousness, initial encounter; W01.0XXA Fall on same level from slipping, tripping and stumbling without subsequent striking against object, initial encounter; Y93.89 Activity, other specified; Y99.8 Other external cause status; Y92.090 Kitchen in other non-institutional residence as the place of occurrence of the external cause
CPT/HCPCS: 23650; 36415; 70450; 71045; 73030; 73060; 76000; 80053; 83880; 84484; 85025; 85610; 85730; 86850; 86900; 86901; 93005; 93306; 93886; 93971; 96374; 96375; 99152; 99291; G0378; J1100; J1885; J2250; J2405; J2704

== ENCOUNTER → 2018-06-23 | Outpatient (CLI) | payer OTHER ==
[~2018-06-23] MED LIST changes: +ATOR10TA PO; +PANT40TA2 PO
== END | disposition home or self-care (01) ==
LOC: LAB 11:00
PROVIDERS: ATTEND Physician Assistant
DX: L57.0 Actinic keratosis (principal)

== ENCOUNTER → 2018-09-17 | Outpatient (CLI) | payer OTHER ==
[2018-09-17 09:48] LABS: Basophils # (auto) 0 uL; Basophils % (auto) 0.4 % (0.0-2.0); Eosinophils # (auto) 0.1 uL; Eosinophils % (auto) 1.3 % (0.0-7.0); Hematocrit 39.8 % (36.0-46.0); Hemoglobin 13.1 g/dL (12.2-16.2); Lymphocytes # (auto) 1.9 uL; Lymphocytes % (auto) 28.6 % (10.0-50.0); Mean Corpuscular Hemoglobin 32.1 pg (28.0-32.0); Mean Corpuscular Volume 97.2 fL (80.0-100.0); Monocytes # (auto) 0.4 uL; Monocytes % (auto) 6.3 % (0.0-12.0); Neutrophils # (auto) 4.3 uL; Neutrophils % (auto) 63.4 % (37.0-80.0); Platelet Count (auto) 219 10^3/uL (140-450); Red Blood Cells 4.09 10^6/uL (4.0-5.20); Red Cell Distribution Width 13.3 % (11.8-14.3); White Blood Cell 6.7 10^3/uL (4.4-10.8)
[2018-09-17 09:58] LABS: Albumin 3.6 g/dL (3.4-5.0); Calcium 8.7 mg/dL (8.5-10.1); Potassium 4.2 mmol/L (3.5-5.1)
[2018-09-17 10:01] LABS: BUN/Creatinine Ratio 16.7; Bilirubin, Total 0.6 mg/dL (0.2-1.0); Total Protein 6.9 g/dL (6.4-8.2)
== END | disposition home or self-care (01) ==
LOC: LAB 09:26
PROVIDERS: ATTEND Internal Medicine
DX: K62.5 Hemorrhage of anus and rectum (principal); I10 Essential (primary) hypertension
CPT/HCPCS: 36415; 80053; 82270; 85025

== ENCOUNTER → 2018-09-28 | Outpatient (CLI) | payer OTHER ==
[2018-09-28 16:00] LABS: Basophils # (auto) 0 uL; Basophils % (auto) 0.4 % (0.0-2.0); Eosinophils # (auto) 0.1 uL; Eosinophils % (auto) 1.2 % (0.0-7.0); Hematocrit 37.7 % (36.0-46.0); Hemoglobin 12.6 g/dL (12.2-16.2); Lymphocytes % (auto) 30.6 % (10.0-50.0); Mean Corpuscular Hemoglobin 32.5 pg (28.0-32.0); Mean Corpuscular Hgb Conc. 33.4 g/dL (32.0-36.0); Mean Corpuscular Volume 97.3 fL (80.0-100.0); Monocytes # (auto) 0.4 uL; Monocytes % (auto) 5.7 % (0.0-12.0); Neutrophils # (auto) 4.1 uL; Neutrophils % (auto) 62.1 % (37.0-80.0); Platelet Count (auto) 224 10^3/uL (140-450); Red Blood Cells 3.88 10^6/uL (4.0-5.20); Red Cell Distribution Width 14.3 % (11.8-14.3); White Blood Cell 6.6 10^3/uL (4.4-10.8)
== END | disposition home or self-care (01) ==
LOC: LAB 15:19
PROVIDERS: ATTEND Internal Medicine
DX: I10 Essential (primary) hypertension (principal); M25.50 Pain in unspecified joint
CPT/HCPCS: 36415; 82085; 82550; 84439; 84443; 85025; 85652; 86038; 86200; 86431; 86812

== ENCOUNTER 2018-12-30 10:47 | Emergency (ER) | payer OTHER ==
[~2018-12-30] VITALS: Ht 162.6 cm; Wt 59.0 kg
[2018-12-30 12:39] VITALS: BP 148/91
[2018-12-30] MEDS ORDERED: KETOROLAC TROMETH 30 MG/ML 1ML VIAL IM ONE (14:30)
[2018-12-30] MEDS ORDERED: KETOROLAC TROMETH 60MG/2ML VIAL IM ONE (15:00)
== END 2018-12-30 15:23 | disposition home or self-care (01) ==
LOC: ER 10:50
DX: S39.012A Strain of muscle, fascia and tendon of lower back, initial encounter (principal); M47.897 Other spondylosis, lumbosacral region; F41.9 Anxiety disorder, unspecified; I10 Essential (primary) hypertension; E78.5 Hyperlipidemia, unspecified; Z79.82 Long term (current) use of aspirin; Z79.899 Other long term (current) drug therapy; W18.39XA Other fall on same level, initial encounter; Y93.89 Activity, other specified; Y92.098 Other place in other non-institutional residence as the place of occurrence of the external cause; Y99.8 Other external cause status
CPT/HCPCS: 72100; 72220; 96372; 99283; J1885

== ENCOUNTER 2019-04-06 10:57 | Day surgery (SDC) | payer OTHER ==
[2019-04-01 14:33] LABS: Basophils # (auto) 0 uL; Basophils % (auto) 0.5 % (0.0-2.0); Eosinophils # (auto) 0.1 uL; Eosinophils % (auto) 1.9 % (0.0-7.0); Hematocrit 43.7 % (36.0-46.0); Hemoglobin 14.6 g/dL (12.2-16.2); Lymphocytes # (auto) 2.9 uL; Lymphocytes % (auto) 41.9 % (10.0-50.0); Mean Corpuscular Hemoglobin 32.3 pg (28.0-32.0); Mean Corpuscular Hgb Conc. 33.4 g/dL (32.0-36.0); Mean Corpuscular Volume 96.8 fL (80.0-100.0); Monocytes # (auto) 0.5 uL; Monocytes % (auto) 7.5 % (0.0-12.0); Neutrophils # (auto) 3.3 uL; Neutrophils % (auto) 48.2 % (37.0-80.0); Nucleated Red Blood Cells % 0.1 %; Platelet Count (auto) 245 10^3/uL (140-450); Red Blood Cells 4.51 10^6/uL (4.0-5.20); Red Cell Distribution Width 13.6 % (11.8-14.3); White Blood Cell 6.8 10^3/uL (4.4-10.8)
[2019-04-01 14:51] LABS: INR < 0.93 (0.9-1.15); Partial Thromboplastin Time 26.5 sec (23.64-32.05)
[~2019-04-06] VITALS: Ht 160 cm; Wt 56.7 kg
[~2019-04-06 10:57] MED LIST changes: -ASPI81CH45 OR; -ATOR10TA PO; -ATOR10TA52 PO; +CLON0.5T11 PO; -CLON05T PO; -HYDR-4683 PO; -LACT10SO66 PO; +LACT10SO70 PO; -PANT40TA2 PO; +TRAM50TA2 PO
[2019-04-06] MEDS ORDERED: SODIUM CHLORIDE LOCK 10 ML ONE (11:37)
[2019-04-06] MEDS ORDERED: LIDOCAINE VISCOUS 2% 15ML UD ONE (11:38)
[2019-04-06] MEDS: fentaNYL CITRATE 100 MCG/2 ML VL ONE ×2 (11:38→11:41)
[2019-04-06] MEDS: MIDAZOLAM HCL 5 MG/ML-1ML VIAL ONE ×2 (11:38→11:41)
[2019-04-06] MEDS ORDERED: diphenhdrAMINE HCL 50 MG/1 ML VL ONE (11:38)
[2019-04-06 12:30] VITALS: BP 173/93
== END 2019-04-06 11:44 | disposition home or self-care (01) ==
LOC: GI 10:57
PROVIDERS: ATTEND Internal Medicine Gastroenterology
DX: K92.1 Melena (principal); K57.30 Diverticulosis of large intestine without perforation or abscess without bleeding; K64.8 Other hemorrhoids; K29.50 Unspecified chronic gastritis without bleeding; K21.9 Gastro-esophageal reflux disease without esophagitis; I10 Essential (primary) hypertension; E78.2 Mixed hyperlipidemia; Z88.1 Allergy status to other antibiotic agents; Z78.0 Asymptomatic menopausal state; Z79.899 Other long term (current) drug therapy
CPT/HCPCS: 36415; 43239; 45378; 85025; 85610; 85730; 88305; 88342; J1200; J2250; J3010; J7030; 99152; 99153

== ENCOUNTER → 2019-05-05 | Outpatient (CLI) | payer OTHER ==
[2019-05-05 09:09] LABS: Albumin 3.5 g/dL (3.4-5.0); Potassium 3.9 mmol/L (3.5-5.1)
[2019-05-05 09:18] LABS: BUN/Creatinine Ratio 15.9; Bilirubin, Total 0.4 mg/dL (0.2-1.0); Calcium 9.1 mg/dL (8.5-10.1)
[2019-05-05 09:22] LABS: Urine Bacteria FEW /hpf (None Seen); Urine Blood Negative /uL (Negative); Urine Mucus FEW (None Seen); Urine Specific Gravity 1.012 (1.001-1.035); Urine WBC 78 /hpf (0 - 5); Urine WBC Clumps PRESENT /hpf (None Seen)
== END | disposition home or self-care (01) ==
LOC: LAB 08:11
PROVIDERS: ATTEND Internal Medicine
DX: I10 Essential (primary) hypertension (principal)
CPT/HCPCS: 36415; 80053; 80061; 81001; 84439; 84443

== ENCOUNTER 2019-07-21 03:59 | Emergency (ER) | payer MEDICARE, OTHER ==
[~2019-07-21] VITALS: Ht 160 cm; Wt 49.9 kg
[~2019-07-21 03:59] MED LIST changes: -CLON0.5T11 PO; +CLON0.5T3 PO
[2019-07-21 06:44] LABS: Basophils # (auto) 0 uL; Basophils % (auto) 0.5 % (0.0-2.0); Eosinophils # (auto) 0.1 uL; Eosinophils % (auto) 1.7 % (0.0-7.0); Hematocrit 40.4 % (36.0-46.0); Hemoglobin 13.8 g/dL (12.2-16.2); Lymphocytes # (auto) 1.8 uL; Lymphocytes % (auto) 25.8 % (10.0-50.0); Mean Corpuscular Hemoglobin 32.1 pg (28.0-32.0); Mean Corpuscular Hgb Conc. 34.2 g/dL (32.0-36.0); Mean Corpuscular Volume 93.8 fL (80.0-100.0); Monocytes # (auto) 0.5 uL; Monocytes % (auto) 7.4 % (0.0-12.0); Neutrophils # (auto) 4.4 uL; Neutrophils % (auto) 64.6 % (37.0-80.0); Platelet Count (auto) 190 10^3/uL (140-450); Red Cell Distribution Width 14.2 % (11.8-14.3); White Blood Cell 6.9 10^3/uL (4.4-10.8)
[2019-07-21 07:00] LABS: Albumin 3.4 g/dL (3.4-5.0); Anion Gap 5 (5-15); BUN/Creatinine Ratio 19.5; Blood Urea Nitrogen 16 mg/dL (7-18); Calcium 8.6 mg/dL (8.5-10.1); Carbon Dioxide 24 mmol/L (21-32); Chloride 112 mmol/L (98-107); GFR African American 86 mL/min; GFR Non-African American 71 mL/min; Glucose 102 mg/dL (74-106); Magnesium 2.3 mg/dL (1.6-2.6); Potassium 3.5 mmol/L (3.5-5.1); Sodium 141 mmol/L (136-145)
[2019-07-21 07:05] LABS: Alanine Aminotransferase 17 U/L (13-56); Alkaline Phosphatase 89 U/L (45-117); Aspartate Aminotransferase 17 U/L (15-37); Bilirubin, Total 0.3 mg/dL (0.2-1.0); Total Protein 6.8 g/dL (6.4-8.2)
[2019-07-21 08:38] LABS: Urine Bacteria MANY /hpf (None Seen); Urine Blood Negative /uL (Negative); Urine Specific Gravity 1.007 (1.001-1.035); Urine WBC 12 /hpf (0 - 5)
[2019-07-21 10:03] VITALS: BP 150/85
== END 2019-07-21 12:07 | disposition home or self-care (01) ==
LOC: EDBD 03:59 → ER 04:05
DX: I47.1 Supraventricular tachycardia (principal); N39.0 Urinary tract infection, site not specified; I10 Essential (primary) hypertension; E78.5 Hyperlipidemia, unspecified; Z90.89 Acquired absence of other organs
CPT/HCPCS: 36415; 71045; 80053; 81001; 83735; 84443; 84484; 85025; 85379; 93005

== ENCOUNTER → 2019-09-15 | Outpatient (CLI) | payer OTHER | END | disposition home or self-care (01) | LOC: XYW 09:35 | PROVIDERS: ATTEND Internal Medicine | DX: I10 Essential (primary) hypertension (principal); I47.1 Supraventricular tachycardia | CPT/HCPCS: 93306 ==

== ENCOUNTER → 2019-12-09 | Outpatient (CLI) | payer OTHER ==
[2019-12-09 08:07] LABS: Basophils # (auto) 0 10 ^3/uL (0-0.2); Basophils % (auto) 0.6 % (0.0-2.0); Eosinophils # (auto) 0.2 10 ^3/uL (0-0.8); Eosinophils % (auto) 2.5 % (0.0-7.0); Hematocrit 42.6 % (36.0-46.0); Hemoglobin 13.9 g/dL (12.2-16.2); Lymphocytes # (auto) 2.3 10 ^3/uL (0.4-5.4); Lymphocytes % (auto) 37.4 % (10.0-50.0); Mean Corpuscular Hemoglobin 31.2 pg (28.0-32.0); Mean Corpuscular Hgb Conc. 32.5 g/dL (32.0-36.0); Mean Corpuscular Volume 95.9 fL (80.0-100.0); Monocytes # (auto) 0.4 10 ^3/uL (0-1.3); Monocytes % (auto) 7.2 % (0.0-12.0); Neutrophils # (auto) 3.2 10 ^3/uL (1.6-8.6); Neutrophils % (auto) 52.3 % (37.0-80.0); Platelet Count (auto) 209 10^3/uL (140-450); Red Blood Cells 4.45 10^6/uL (4.0-5.20); Red Cell Distribution Width 14.4 % (11.8-14.3); White Blood Cell 6.1 10^3/uL (4.4-10.8)
[2019-12-09 09:08] LABS: CRP High Sensitivity 0.07 mg/dL (< 0.3); Uric Acid 3.4 mg/dL (2.6-6.0)
== END | disposition home or self-care (01) ==
LOC: LAB 07:44
PROVIDERS: ATTEND Internal Medicine
DX: M25.50 Pain in unspecified joint (principal); I10 Essential (primary) hypertension; E78.5 Hyperlipidemia, unspecified
CPT/HCPCS: 36415; 80061; 82550; 84439; 84443; 84550; 85025; 85652; 86141; 86200

== ENCOUNTER → 2019-12-28 | Outpatient (CLI) | payer OTHER ==
[2019-12-28 15:01] LABS: Albumin 3.6 g/dL (3.4-5.0); Calcium 8.6 mg/dL (8.5-10.1); Potassium 4.5 mmol/L (3.5-5.1)
[2019-12-28 15:04] LABS: Bilirubin, Total 0.3 mg/dL (0.2-1.0); Total Protein 7.2 g/dL (6.4-8.2)
== END | disposition home or self-care (01) ==
LOC: LAB 14:22
PROVIDERS: ATTEND Internal Medicine
DX: R07.89 Other chest pain (principal)
CPT/HCPCS: 36415; 80053; 85379

== ENCOUNTER → 2020-02-15 | Outpatient (CLI) | payer OTHER | END | disposition home or self-care (01) | LOC: XY 07:27 | PROVIDERS: ATTEND Internal Medicine | DX: R06.00 Dyspnea, unspecified (principal) | CPT/HCPCS: 71045; 78582; A9540; A9558 ==

== ENCOUNTER → 2020-02-22 | Outpatient (CLI) | payer MEDICARE, OTHER | END | disposition home or self-care (01) | LOC: US 08:58 | PROVIDERS: ATTEND Internal Medicine | DX: E04.1 Nontoxic single thyroid nodule (principal); Z98.890 Other specified postprocedural states; Z79.899 Other long term (current) drug therapy | CPT/HCPCS: 10005; 76942; 88172; 88305; 88313; J2001; 10022 ==

== ENCOUNTER → 2020-03-10 | Outpatient (CLI) | payer OTHER ==
[2020-03-10 12:38] LABS: Potassium 4.2 mmol/L (3.5-5.1)
[2020-03-10 12:49] LABS: Albumin 3.8 g/dL (3.4-5.0); BUN/Creatinine Ratio 18.8; Bilirubin, Total 0.5 mg/dL (0.2-1.0); Calcium 8.8 mg/dL (8.5-10.1)
[2020-03-10 14:06] LABS: Basophils # (auto) 0 10 ^3/uL (0-0.2); Basophils % (auto) 0.4 % (0.0-2.0); Eosinophils # (auto) 0.1 10 ^3/uL (0-0.8); Eosinophils % (auto) 0.7 % (0.0-7.0); Hematocrit 39.3 % (36.0-46.0); Hemoglobin 12.9 g/dL (12.2-16.2); Lymphocytes # (auto) 1.8 10 ^3/uL (0.4-5.4); Lymphocytes % (auto) 24.4 % (10.0-50.0); Mean Corpuscular Hgb Conc. 32.9 g/dL (32.0-36.0); Mean Corpuscular Volume 97.3 fL (80.0-100.0); Monocytes # (auto) 0.5 10 ^3/uL (0-1.3); Monocytes % (auto) 6.5 % (0.0-12.0); Nucleated Red Blood Cells % 0.1 %; Platelet Count (auto) 204 10^3/uL (140-450); Red Blood Cells 4.04 10^6/uL (4.0-5.20); Red Cell Distribution Width 14.3 % (11.8-14.3); White Blood Cell 7.4 10^3/uL (4.4-10.8)
== END | disposition home or self-care (01) ==
LOC: LAB 11:37
PROVIDERS: ATTEND Internal Medicine
DX: I10 Essential (primary) hypertension (principal); M70.22 Olecranon bursitis, left elbow
CPT/HCPCS: 36415; 80053; 84550; 85025; 85652

== ENCOUNTER → 2020-09-27 | Outpatient (CLI) | payer OTHER, MEDICARE | END | disposition home or self-care (01) | LOC: XYW 10:23 | PROVIDERS: ATTEND Internal Medicine | DX: M47.817 Spondylosis without myelopathy or radiculopathy, lumbosacral region (principal); M43.17 Spondylolisthesis, lumbosacral region; M51.37 Other intervertebral disc degeneration, lumbosacral region; M48.07 Spinal stenosis, lumbosacral region; M51.35 Other intervertebral disc degeneration, thoracolumbar region; M48.04 Spinal stenosis, thoracic region; M25.78 Osteophyte, vertebrae; M48.54XA Collapsed vertebra, not elsewhere classified, thoracic region, initial encounter for fracture | CPT/HCPCS: 72148 ==

== ENCOUNTER → 2020-10-26 | Outpatient (CLI) | payer OTHER ==
[2020-10-26 10:01] LABS: Basophils # (auto) 0 10 ^3/uL (0-0.2); Basophils % (auto) 0.4 % (0.0-2.0); Eosinophils # (auto) 0.1 10 ^3/uL (0-0.8); Eosinophils % (auto) 1.4 % (0.0-7.0); Hematocrit 39.8 % (36.0-46.0); Hemoglobin 13.6 g/dL (12.2-16.2); Lymphocytes % (auto) 27.1 % (10.0-50.0); Mean Corpuscular Hemoglobin 33.3 pg (28.0-32.0); Mean Corpuscular Volume 97.8 fL (80.0-100.0); Monocytes # (auto) 0.6 10 ^3/uL (0-1.3); Monocytes % (auto) 7.4 % (0.0-12.0); Neutrophils # (auto) 4.8 10 ^3/uL (1.6-8.6); Neutrophils % (auto) 63.7 % (37.0-80.0); Nucleated Red Blood Cells % 0.1 %; Platelet Count (auto) 222 10^3/uL (140-450); Red Blood Cells 4.07 10^6/uL (4.0-5.20); White Blood Cell 7.5 10^3/uL (4.4-10.8)
[2020-10-26 10:04] LABS: Urine Bacteria FEW /hpf (None Seen); Urine Blood 1+ /uL (Negative); Urine Mucus FEW (None Seen); Urine WBC 14 /hpf (0 - 5)
[2020-10-26 10:10] LABS: Albumin 3.4 g/dL (3.4-5.0); Potassium 3.8 mmol/L (3.5-5.1)
[2020-10-26 10:17] LABS: BUN/Creatinine Ratio 15.5; Total Protein 6.9 g/dL (6.4-8.2)
== END | disposition home or self-care (01) ==
LOC: LAB 09:01
PROVIDERS: ATTEND Internal Medicine
DX: I10 Essential (primary) hypertension (principal); M46.06 Spinal enthesopathy, lumbar region
CPT/HCPCS: 36415; 80053; 80061; 81001; 84439; 84443; 85025

== ENCOUNTER 2020-12-14 17:13 | Emergency (ER) | payer MEDICARE, OTHER ==
[~2020-12-14] VITALS: Ht 160 cm; Wt 59.0 kg
[2020-12-14 18:12] LABS: Basophils # (auto) 0 10 ^3/uL (0-0.2); Basophils % (auto) 0.2 % (0.0-2.0); Eosinophils # (auto) 0 10 ^3/uL (0-0.8); Eosinophils % (auto) 0.2 % (0.0-7.0); Hematocrit 41.4 % (36.0-46.0); Hemoglobin 14.3 g/dL (12.2-16.2); Lymphocytes # (auto) 1.6 10 ^3/uL (0.4-5.4); Lymphocytes % (auto) 15.2 % (10.0-50.0); Mean Corpuscular Hemoglobin 33.2 pg (28.0-32.0); Mean Corpuscular Hgb Conc. 34.6 g/dL (32.0-36.0); Mean Corpuscular Volume 96.1 fL (80.0-100.0); Monocytes # (auto) 0.9 10 ^3/uL (0-1.3); Monocytes % (auto) 8.5 % (0.0-12.0); Neutrophils # (auto) 8.1 10 ^3/uL (1.6-8.6); Neutrophils % (auto) 75.9 % (37.0-80.0); Red Blood Cells 4.31 10^6/uL (4.0-5.20); Red Cell Distribution Width 13.4 % (11.8-14.3); White Blood Cell 10.7 10^3/uL (4.4-10.8)
[2020-12-14 18:27] LABS: Albumin 3.3 g/dL (3.4-5.0); Calcium 8.2 mg/dL (8.5-10.1); Magnesium 2.3 mg/dL (1.6-2.6); Potassium 3.7 mmol/L (3.5-5.1)
[2020-12-14 18:31] LABS: BUN/Creatinine Ratio 24.6; Bilirubin, Total 0.7 mg/dL (0.2-1.0); Total Protein 6.9 g/dL (6.4-8.2)
[2020-12-14 19:25] VITALS: BP 143/76
== END 2020-12-14 19:28 | disposition home or self-care (01) ==
LOC: EDBD 17:13 → ER 17:17
DX: I47.1 Supraventricular tachycardia (principal)
CPT/HCPCS: 36415; 71045; 80053; 83735; 85025; 93005

== ENCOUNTER 2021-05-27 04:15 | Inpatient (IN) | payer MEDICARE, OTHER ==
[~2021-05-27] VITALS: Ht 162.6 cm; Wt 62.4 kg
[2021-05-27] MEDS ORDERED: ASPirin 81 mg TAB PO ONE (07:45)
[2021-05-27 08:31] LABS: Basophils # (auto) 0 10 ^3/uL (0-0.2); Basophils % (auto) 0.2 % (0.0-2.0); Eosinophils # (auto) 0 10 ^3/uL (0-0.8); Eosinophils % (auto) 0.2 % (0.0-7.0); Hematocrit 42.7 % (36.0-46.0); Hemoglobin 14.1 g/dL (12.2-16.2); Lymphocytes # (auto) 0.7 10 ^3/uL (0.4-5.4); Lymphocytes % (auto) 5.6 % (10.0-50.0); Mean Corpuscular Hemoglobin 31.5 pg (28.0-32.0); Mean Corpuscular Volume 95.4 fL (80.0-100.0); Monocytes # (auto) 1.1 10 ^3/uL (0-1.3); Monocytes % (auto) 8.2 % (0.0-12.0); Neutrophils # (auto) 11.1 10 ^3/uL (1.6-8.6); Neutrophils % (auto) 85.8 % (37.0-80.0); Red Blood Cells 4.48 10^6/uL (4.0-5.20); Red Cell Distribution Width 13.7 % (11.8-14.3)
[2021-05-27 08:51] LABS: Albumin 3.4 g/dL (3.4-5.0); Potassium 3.9 mmol/L (3.5-5.1)
[2021-05-27 09:00] LABS: Bilirubin, Total 0.9 mg/dL (0.2-1.0)
[2021-05-27] MEDS ORDERED: cefTRIAXone 1GM/50ML D5W 50 ML IV ONE (11:45)
[2021-05-27] MEDS ORDERED: AZITHROMYCIN 500MG/ 250ML 250 ML IV ONE (11:45)
[2021-05-27 12:47] LABS: Urine Bacteria NONE SEEN /hpf (None Seen); Urine Blood TRACE /uL (Negative); Urine Mucus FEW (None Seen); Urine Specific Gravity 1.023 (1.001-1.035); Urine WBC 1 /hpf (0 - 5)
[2021-05-27] MEDS ORDERED: NITROGLYCERIN 0.4 MG SL TAB SL PRN ×2 (13:00→16:30)
[2021-05-27] MEDS ORDERED: MORPHINE SULFATE INJECTION 2 MG/ML SYRG IV PRN ×2 (13:00→16:30)
[2021-05-27 13:43] LABS: Lactic Acid w/Reflex 2.2 mmol/L (0.4-2.0)
[2021-05-27] MEDS ORDERED: PIPERACILLIN-TAZOB 3.375GM 100 ML IV SCH (14:00)
[2021-05-27] MEDS ORDERED: LACTATED RINGER'S 1,000 ML IV ONE (16:30)
[2021-05-27] MEDS ORDERED: SUCRALFATE 1 GM/10 ML ORAL SUSP PO ONE (16:30)
[2021-05-27] MEDS ORDERED: LORazepam 0.5 MG TAB PO PRN (16:30)
[2021-05-27] MEDS ORDERED: ALUM & MAG HYDROX-SIMETH LIQ(MAALOX) 30 ML PO PRN (16:30)
[2021-05-27] MEDS ORDERED: PANTOPRAZOLE 40 MG/10 ML VIAL INJ IV ONE (16:30)
[2021-05-27] MEDS ORDERED: metroNIDAZOLE 500MG/100ML 100 ML IV ONE (16:30)
[2021-05-27] MEDS ORDERED: DOCUSATE SOD 100 MG CAP PO PRN (16:30)
[2021-05-27 17:22] LABS: INR 1.01 (0.9-1.15); Partial Thromboplastin Time 24.8 sec (23.6-33.0)
[2021-05-27 18:23] LABS: Cholesterol 162 mg/dL (< 200); Triglycerides 71 mg/dL (< 150)
[2021-05-27 18:25] LABS: HDL Cholesterol 65 mg/dL (40-59); LDL Cholesterol 85 mg/dL (< 100)
[2021-05-27] MEDS ORDERED: dilTIAZem HCL 50 MG/10 ML VIAL IV ONE ×2 (22:37)
[2021-05-27] MEDS: METOPROLOL TARTRATE 25 MG TAB PO SCH (22:43)
[2021-05-27] MEDS ORDERED: dilTIAZem 25 MG/5 ML VIAL IV ONE (22:45)
[2021-05-27 23:15] VITALS: BP 139/78
[2021-05-27 23:25] VITALS: BP 139/78
[2021-05-28] MEDS: SUCRALFATE 1 GM/10 ML ORAL SUSP PO SCH ×5 (01:13→22:08)
[2021-05-28] MEDS: metroNIDAZOLE 500MG/100ML 100 ML IV SCH ×4 (01:13→22:18)
[2021-05-28] MEDS: ATORVASTATIN 20 MG TAB PO SCH ×2 (01:14→22:08)
[2021-05-28] MEDS: GABAPENTIN 100 MG CAP PO SCH ×3 (01:14→22:08)
[2021-05-28] MEDS ORDERED: AMIODARONE HCL 150 MG in D5W 5% 100 ML IV ONE (03:15)
[2021-05-28] MEDS ORDERED: AMIODARONE 450mg/250ml AE 250 ML IV SCH ×2 (03:30→09:30)
[2021-05-28] MEDS: HYDROcodone-ACET 5/325MG TAB PO PRN ×2 (03:52→16:01)
[2021-05-28 05:16] VITALS: BP 121/62
[2021-05-28 05:58] LABS: Basophils # (auto) 0 10 ^3/uL (0-0.2); Basophils % (auto) 0.2 % (0.0-2.0); Eosinophils # (auto) 0 10 ^3/uL (0-0.8); Eosinophils % (auto) 0.1 % (0.0-7.0); Hematocrit 38.3 % (36.0-46.0); Hemoglobin 13.2 g/dL (12.2-16.2); Lymphocytes % (auto) 14.6 % (10.0-50.0); Mean Corpuscular Hemoglobin 32.7 pg (28.0-32.0); Mean Corpuscular Hgb Conc. 34.5 g/dL (32.0-36.0); Mean Corpuscular Volume 94.7 fL (80.0-100.0); Monocytes # (auto) 1.1 10 ^3/uL (0-1.3); Monocytes % (auto) 7.9 % (0.0-12.0); Neutrophils # (auto) 10.8 10 ^3/uL (1.6-8.6); Neutrophils % (auto) 77.2 % (37.0-80.0); Nucleated Red Blood Cells % 0.4 %; Red Blood Cells 4.04 10^6/uL (4.0-5.20); Red Cell Distribution Width 13.6 % (11.8-14.3)
[2021-05-28 06:10] LABS: INR 1.03 (0.9-1.15); Partial Thromboplastin Time 27.6 sec (23.6-33.0)
[2021-05-28 06:24] LABS: Potassium 3.5 mmol/L (3.5-5.1)
[2021-05-28 06:32] LABS: Albumin 2.9 g/dL (3.4-5.0); BUN/Creatinine Ratio 27.8; Calcium 8.5 mg/dL (8.5-10.1); Magnesium 2.5 mg/dL (1.6-2.6); Phosphorus 2.9 mg/dL (2.5-4.90); Total Protein 5.9 g/dL (6.4-8.2); Uric Acid 3.8 mg/dL (2.6-6.0)
[2021-05-28 08:00] VITALS: BP 103/61
[2021-05-28] MEDS: SODIUM CHLORIDE 0.9% 1,000 ML IV SCH ×3 (08:58→19:10)
[2021-05-28] MEDS ORDERED: ENOXAPARIN SOD 40 MG/0.4 ML SYRINGE SC SCH (10:00)
[2021-05-28] MEDS ORDERED: POTASSIUM EFFERVESENT TAB 25 MEQ GT ONE (10:15)
[2021-05-28] MEDS: cefTRIAXone 1GM/50ML D5W 50 ML IV SCH (10:22)
[2021-05-28] MEDS: PANTOPRAZOLE 40 MG/10 ML VIAL INJ IV SCH (10:22)
[2021-05-28] MEDS: ASPirin 81 mg TAB PO SCH (10:23)
[2021-05-28] MEDS: LOSARTAN POTASSIUM 25 MG TAB PO SCH (10:25)
[2021-05-28] MEDS: METOPROLOL TARTRATE 25 MG TAB PO SCH ×2 (10:26→22:17)
[2021-05-28] MEDS ORDERED: POTASSIUM EFFERVESENT TAB 25 MEQ PO ONE (11:30)
[2021-05-28 12:00] VITALS: BP 139/69
[2021-05-28 16:00] VITALS: BP 155/79
[2021-05-28 22:00] VITALS: BP 141/89
[2021-05-29] MEDS: MORPHINE SULFATE INJECTION 2 MG/ML SYRG IV PRN ×2 (04:47→19:33)
[2021-05-29 05:00] VITALS: BP 146/89
[2021-05-29 05:46] LABS: Basophils # (auto) 0 10 ^3/uL (0-0.2); Basophils % (auto) 0.3 % (0.0-2.0); Eosinophils # (auto) 0.1 10 ^3/uL (0-0.8); Eosinophils % (auto) 1.5 % (0.0-7.0); Hemoglobin 12.8 g/dL (12.2-16.2); Lymphocytes # (auto) 1.9 10 ^3/uL (0.4-5.4); Lymphocytes % (auto) 21.8 % (10.0-50.0); Mean Corpuscular Hemoglobin 32.4 pg (28.0-32.0); Mean Corpuscular Hgb Conc. 33.8 g/dL (32.0-36.0); Mean Corpuscular Volume 95.9 fL (80.0-100.0); Monocytes % (auto) 10.7 % (0.0-12.0); Neutrophils # (auto) 5.9 10 ^3/uL (1.6-8.6); Neutrophils % (auto) 65.7 % (37.0-80.0); Nucleated Red Blood Cells % 0.1 %; Red Blood Cells 3.96 10^6/uL (4.0-5.20); Red Cell Distribution Width 13.7 % (11.8-14.3); White Blood Cell 8.9 10^3/uL (4.4-10.8)
[2021-05-29 06:06] LABS: Albumin 2.7 g/dL (3.4-5.0); Calcium 8.2 mg/dL (8.5-10.1); Potassium 3.7 mmol/L (3.5-5.1)
[2021-05-29 06:09] LABS: BUN/Creatinine Ratio 14.8; Bilirubin, Total 0.7 mg/dL (0.2-1.0); Total Protein 5.7 g/dL (6.4-8.2)
[2021-05-29] MEDS: metroNIDAZOLE 500MG/100ML 100 ML IV SCH ×3 (06:34→22:37)
[2021-05-29] MEDS: SUCRALFATE 1 GM/10 ML ORAL SUSP PO SCH ×4 (06:35→22:44)
[2021-05-29] MEDS ORDERED: IODIXANOL 320MG/ML 100ML BTL IV ONE ×3 (07:11→09:38)
[2021-05-29 08:30] VITALS: BP 125/69
[2021-05-29] MEDS ORDERED: POTASSIUM CHL 20MEQ/100ML 100 ML IV ONE (08:30)
[2021-05-29] MEDS: METOPROLOL TARTRATE 25 MG TAB PO SCH ×2 (09:20→22:45)
[2021-05-29] MEDS: LOSARTAN POTASSIUM 25 MG TAB PO SCH (09:20)
[2021-05-29] MEDS ORDERED: fentaNYL CITRATE 100 MCG/2 ML VL ONE (09:35)
[2021-05-29] MEDS ORDERED: MIDAZOLAM HCL 2MG/2ML 2ml VIAL (1mg/ml) ONE ×2 (09:36→11:33)
[2021-05-29] MEDS ORDERED: LIDOCAINE 2%HCL (LOCAL ANESTH.) INJ 20ML MDV ONE ×2 (09:38→12:12)
[2021-05-29] MEDS ORDERED: HYDROmorphone HCL 2 MG/ML VL ONE (10:18)
[2021-05-29] MEDS ORDERED: KETOROLAC TROMETH 30 MG/ML 1ML VIAL IV ONE ×3 (11:00→11:30)
[2021-05-29] MEDS: SODIUM CHLORIDE 0.9% 1,000 ML IV SCH ×2 (13:57→23:09)
[2021-05-29] MEDS: ASPirin 81 mg TAB PO SCH (14:09)
[2021-05-29] MEDS: PANTOPRAZOLE 40 MG/10 ML VIAL INJ IV SCH (14:10)
[2021-05-29] MEDS: GABAPENTIN 100 MG CAP PO SCH ×2 (14:10→22:45)
[2021-05-29] MEDS ORDERED: FLECAINIDE ACETATE 50 MG TAB PO ONE (16:00)
[2021-05-29 16:30] VITALS: BP 148/83
[2021-05-29] MEDS: cefTRIAXone 1GM/50ML D5W 50 ML IV SCH (17:00)
[2021-05-29 22:00] VITALS: BP 159/101
[2021-05-29] MEDS: FLECAINIDE ACETATE 50 MG TAB PO SCH (22:45)
[2021-05-30] VITALS (8 sets, daily range): BP systolic 120–156; BP diastolic 62–81
[2021-05-30] MEDS: metroNIDAZOLE 500MG/100ML 100 ML IV SCH ×3 (06:07→22:28)
[2021-05-30] MEDS: SUCRALFATE 1 GM/10 ML ORAL SUSP PO SCH ×3 (06:07→17:00)
[2021-05-30 07:50] LABS: Basophils # (auto) 0 10 ^3/uL (0-0.2); Basophils % (auto) 0.2 % (0.0-2.0); Eosinophils # (auto) 0 10 ^3/uL (0-0.8); Hematocrit 41.9 % (36.0-46.0); Hemoglobin 13.9 g/dL (12.2-16.2); Mean Corpuscular Hemoglobin 31.7 pg (28.0-32.0); Mean Corpuscular Hgb Conc. 33.1 g/dL (32.0-36.0); Mean Corpuscular Volume 95.9 fL (80.0-100.0); Monocytes # (auto) 0.5 10 ^3/uL (0-1.3); Monocytes % (auto) 4.4 % (0.0-12.0); Neutrophils # (auto) 10.7 10 ^3/uL (1.6-8.6); Neutrophils % (auto) 87.4 % (37.0-80.0); Nucleated Red Blood Cells % 0.1 %; Red Blood Cells 4.37 10^6/uL (4.0-5.20); Red Cell Distribution Width 13.7 % (11.8-14.3); White Blood Cell 12.2 10^3/uL (4.4-10.8)
[2021-05-30 08:09] LABS: Potassium 3.6 mmol/L (3.5-5.1)
[2021-05-30 08:15] LABS: Albumin 2.5 g/dL (3.4-5.0); BUN/Creatinine Ratio 20.9; Calcium 8.2 mg/dL (8.5-10.1)
[2021-05-30 08:17] LABS: Bilirubin, Total 0.7 mg/dL (0.2-1.0); Total Protein 5.5 g/dL (6.4-8.2)
[2021-05-30] MEDS: MORPHINE SULFATE INJECTION 2 MG/ML SYRG IV PRN (08:27)
[2021-05-30] MEDS: ONDANSETRON HCL 4 MG/2 ML VIAL IV PRN (08:27)
[2021-05-30] MEDS: cefTRIAXone 1GM/50ML D5W 50 ML IV SCH (09:00)
[2021-05-30] MEDS: METOPROLOL TARTRATE 25 MG TAB PO SCH ×2 (10:00→20:35)
[2021-05-30] MEDS: ASPirin 81 mg TAB PO SCH (10:00)
[2021-05-30] MEDS: GABAPENTIN 100 MG CAP PO SCH ×2 (10:00→22:30)
[2021-05-30] MEDS: FLECAINIDE ACETATE 50 MG TAB PO SCH ×2 (10:00→20:36)
[2021-05-30] MEDS: LOSARTAN POTASSIUM 50 MG TAB PO SCH (10:00)
[2021-05-30] MEDS: PANTOPRAZOLE 40 MG/10 ML VIAL INJ IV SCH (10:00)
[2021-05-30] MEDS ORDERED: METOPROLOL TARTRATE 1MG/1ML-5ML VIAL IV ONE (10:17)
[2021-05-30] MEDS ORDERED: METOPROLOL TARTRATE 50 MG TAB ONE (10:19)
[2021-05-30] MEDS ORDERED: METOPROLOL TARTRATE 50 MG TAB PO ONE (10:45)
[2021-05-30] MEDS: SODIUM CHLORIDE 0.9% 1,000 ML IV SCH (11:10)
[2021-05-30] MEDS ORDERED: ADENOSINE 6 MG/2 ML INJ IV ONE (12:34)
[2021-05-30] MEDS ORDERED: MIDAZOLAM HCL 2MG/2ML 2ml VIAL (1mg/ml) ONE (15:03)
[2021-05-30] MEDS ORDERED: HYDROmorphone HCL 2 MG/ML VL ONE (15:04)
[2021-05-30] MEDS ORDERED: LIDOCAINE 2%HCL (LOCAL ANESTH.) INJ 20ML MDV ONE (15:07)
[2021-05-30] MEDS ORDERED: IODIXANOL 320MG/ML 100ML BTL IV ONE (15:07)
[2021-05-31] MEDS: MORPHINE SULFATE INJECTION 2 MG/ML SYRG IV PRN (02:08)
[2021-05-31] MEDS: SODIUM CHLORIDE 0.9% 1,000 ML IV SCH ×2 (02:09→13:50)
[2021-05-31 05:00] VITALS: BP 122/66
[2021-05-31] MEDS: metroNIDAZOLE 500MG/100ML 100 ML IV SCH ×3 (06:08→21:50)
[2021-05-31 07:20] LABS: Basophils # (auto) 0 10 ^3/uL (0-0.2); Basophils % (auto) 0.1 % (0.0-2.0); Eosinophils # (auto) 0 10 ^3/uL (0-0.8); Eosinophils % (auto) 0.3 % (0.0-7.0); Hematocrit 37.7 % (36.0-46.0); Hemoglobin 12.7 g/dL (12.2-16.2); Lymphocytes # (auto) 1.1 10 ^3/uL (0.4-5.4); Mean Corpuscular Hemoglobin 32.5 pg (28.0-32.0); Mean Corpuscular Hgb Conc. 33.8 g/dL (32.0-36.0); Monocytes # (auto) 0.6 10 ^3/uL (0-1.3); Monocytes % (auto) 4.6 % (0.0-12.0); Red Blood Cells 3.92 10^6/uL (4.0-5.20); Red Cell Distribution Width 13.6 % (11.8-14.3); White Blood Cell 13.8 10^3/uL (4.4-10.8)
[2021-05-31 07:39] LABS: Potassium 3.6 mmol/L (3.5-5.1)
[2021-05-31 07:55] LABS: Albumin 2.1 g/dL (3.4-5.0); BUN/Creatinine Ratio 44.4; Bilirubin, Total 0.4 mg/dL (0.2-1.0); Calcium 8.2 mg/dL (8.5-10.1); Total Protein 4.9 g/dL (6.4-8.2)
[2021-05-31] MEDS: GABAPENTIN 100 MG CAP PO SCH ×2 (08:02→21:51)
[2021-05-31] MEDS: ASPirin 81 mg TAB PO SCH (08:03)
[2021-05-31] MEDS: METOPROLOL TARTRATE 25 MG TAB PO SCH ×2 (08:03→21:50)
[2021-05-31] MEDS: FLECAINIDE ACETATE 50 MG TAB PO SCH ×2 (08:04→21:52)
[2021-05-31] MEDS: LOSARTAN POTASSIUM 50 MG TAB PO SCH (08:05)
[2021-05-31] MEDS: PANTOPRAZOLE 40 MG/10 ML VIAL INJ IV SCH (08:05)
[2021-05-31] MEDS: cefTRIAXone 1GM/50ML D5W 50 ML IV SCH (08:06)
[2021-05-31 08:58] VITALS: BP 135/79
[2021-05-31] MEDS ORDERED: FUROSEMIDE 20 MG/2 ML VIAL IV ONE (09:45)
[2021-05-31] MEDS ORDERED: ONDANSETRON HCL 4 MG/2 ML VIAL ONE (09:58)
[2021-05-31] MEDS ORDERED: fentaNYL CITRATE 100 MCG/2 ML VL ONE (09:58)
[2021-05-31] MEDS ORDERED: HYDROmorphone HCL 2 MG/ML VL ONE (09:58)
[2021-05-31] MEDS ORDERED: DexAMETHasone SOD PHOS 10MG/1ML VIAL INJ ONE (09:58)
[2021-05-31] MEDS ORDERED: GLYCOPYRROLATE 0.2 MG/ML 1ML VIAL ONE (09:58)
[2021-05-31] MEDS ORDERED: LIDOCAINE 2% (LOCAL ANESTH.) PF 5ml SDV ONE (09:58)
[2021-05-31] MEDS ORDERED: ePHEDrine SULFATE 50 MG/ML AMP ONE (09:58)
[2021-05-31] MEDS ORDERED: MIDAZOLAM HCL 2MG/2ML 2ml VIAL (1mg/ml) ONE (09:58)
[2021-05-31] MEDS ORDERED: ETOMIDATE (2MG/ML) 20ML VIAL IV ONE (09:58)
[2021-05-31] MEDS ORDERED: POTASSIUM CHLORIDE 40 MEQ, LIDOCAINE 1% (LOCAL ANESTH.) 4 ML in SODIUM CHL 0.9% 250 ML IV ONE (12:00)
[2021-05-31] MEDS ORDERED: LIDOCAINE W/ EPINEPHRINE 1% 20ML VIAL ONE (12:29)
[2021-05-31 12:37] VITALS: BP 128/74
[2021-05-31] MEDS ORDERED: ceFAZolin 1GM/50ML 100 ML IV ONE (12:49)
[2021-05-31] MEDS ORDERED: POVIDONE IODINE 10 % TOPICAL OINT 30GM TOP ONE (13:32)
[2021-05-31] MEDS ORDERED: ONDANSETRON HCL 4 MG/2 ML VIAL IV PRN (14:30)
[2021-05-31] MEDS ORDERED: HYDROmorphone HCL 2 MG/ML VL IV PRN (14:30)
[2021-05-31 16:32] VITALS: BP 136/82
[2021-05-31] MEDS: D5W/SOD CHL 0.45%/KCL 20MEQ 1,000 ML IV SCH (18:56)
[2021-05-31] MEDS: MAGNESIUM OXIDE 400 MG TAB PO SCH (21:50)
[2021-06-01] MEDS: D5W/SOD CHL 0.45%/KCL 20MEQ 1,000 ML IV SCH ×2 (00:15→10:15)
[2021-06-01] MEDS: SODIUM CHLORIDE 0.9% 1,000 ML IV SCH (03:10)
[2021-06-01] MEDS: MORPHINE SULFATE INJECTION 2 MG/ML SYRG IV PRN (04:20)
[2021-06-01 05:00] VITALS: BP 142/79
[2021-06-01] MEDS: metroNIDAZOLE 500MG/100ML 100 ML IV SCH ×2 (06:00→14:38)
[2021-06-01 06:19] LABS: Basophils # (auto) 0 10 ^3/uL (0-0.2); Eosinophils # (auto) 0 10 ^3/uL (0-0.8); Hematocrit 35.8 % (36.0-46.0); Hemoglobin 12.3 g/dL (12.2-16.2); Lymphocytes # (auto) 0.7 10 ^3/uL (0.4-5.4); Lymphocytes % (auto) 6.1 % (10.0-50.0); Mean Corpuscular Hemoglobin 32.3 pg (28.0-32.0); Mean Corpuscular Hgb Conc. 34.2 g/dL (32.0-36.0); Mean Corpuscular Volume 94.4 fL (80.0-100.0); Monocytes # (auto) 0.5 10 ^3/uL (0-1.3); Neutrophils # (auto) 10.4 10 ^3/uL (1.6-8.6); Neutrophils % (auto) 89.9 % (37.0-80.0); Nucleated Red Blood Cells % 0.1 %; Red Cell Distribution Width 13.4 % (11.8-14.3); White Blood Cell 11.6 10^3/uL (4.4-10.8)
[2021-06-01 06:26] LABS: Potassium 4.2 mmol/L (3.5-5.1)
[2021-06-01 06:28] LABS: BUN/Creatinine Ratio 33.3
[2021-06-01 06:31] LABS: Bilirubin, Total 0.3 mg/dL (0.2-1.0)
[2021-06-01] MEDS: SUCRALFATE 1 GM/10 ML ORAL SUSP PO SCH ×4 (07:00→21:42)
[2021-06-01 09:00] VITALS: BP 168/94
[2021-06-01] MEDS: cefTRIAXone 1GM/50ML D5W 50 ML IV SCH (09:45)
[2021-06-01] MEDS: PANTOPRAZOLE 40 MG/10 ML VIAL INJ IV SCH (09:46)
[2021-06-01] MEDS: LOSARTAN POTASSIUM 50 MG TAB PO SCH (09:46)
[2021-06-01] MEDS: ASPirin 81 mg TAB PO SCH (09:46)
[2021-06-01] MEDS: GABAPENTIN 100 MG CAP PO SCH ×2 (09:47→21:44)
[2021-06-01] MEDS: METOPROLOL TARTRATE 25 MG TAB PO SCH ×2 (09:47→21:43)
[2021-06-01] MEDS: MAGNESIUM OXIDE 400 MG TAB PO SCH ×2 (09:47→21:43)
[2021-06-01] MEDS: FLECAINIDE ACETATE 50 MG TAB PO SCH ×2 (09:48→21:44)
[2021-06-01 13:00] VITALS: BP 141/78
[2021-06-01] MEDS ORDERED: dilTIAZem 25 MG/5 ML VIAL IV ONE ×2 (16:36→16:45)
[2021-06-01 17:48] VITALS: BP 129/77
[2021-06-01] MEDS: metroNIDAZOLE 500 MG TAB PO SCH (21:43)
[2021-06-01] MEDS: LORazepam 2MG/ML-1ML VIAL IV PRN (21:53)
[2021-06-01 22:35] VITALS: BP 146/80
[2021-06-02] MEDS: MORPHINE SULFATE INJECTION 2 MG/ML SYRG IV PRN ×4 (02:00→22:36)
[2021-06-02 05:00] VITALS: BP 168/91
[2021-06-02] MEDS: metroNIDAZOLE 500 MG TAB PO SCH ×3 (06:09→22:25)
[2021-06-02] MEDS: SUCRALFATE 1 GM/10 ML ORAL SUSP PO SCH ×4 (06:32→22:25)
[2021-06-02 06:36] LABS: Basophils # (auto) 0 10 ^3/uL (0-0.2); Basophils % (auto) 0.1 % (0.0-2.0); Eosinophils # (auto) 0 10 ^3/uL (0-0.8); Eosinophils % (auto) 0.1 % (0.0-7.0); Hemoglobin 12.5 g/dL (12.2-16.2); Lymphocytes # (auto) 1.8 10 ^3/uL (0.4-5.4); Lymphocytes % (auto) 12.9 % (10.0-50.0); Mean Corpuscular Hemoglobin 31.8 pg (28.0-32.0); Mean Corpuscular Hgb Conc. 33.9 g/dL (32.0-36.0); Mean Corpuscular Volume 93.8 fL (80.0-100.0); Monocytes # (auto) 1.3 10 ^3/uL (0-1.3); Monocytes % (auto) 9.6 % (0.0-12.0); Neutrophils # (auto) 10.5 10 ^3/uL (1.6-8.6); Neutrophils % (auto) 77.3 % (37.0-80.0); Nucleated Red Blood Cells % 0.1 %; Red Blood Cells 3.94 10^6/uL (4.0-5.20); Red Cell Distribution Width 13.1 % (11.8-14.3); White Blood Cell 13.6 10^3/uL (4.4-10.8)
[2021-06-02 06:55] LABS: Potassium 3.5 mmol/L (3.5-5.1)
[2021-06-02 06:57] LABS: BUN/Creatinine Ratio 27.7; Calcium 7.9 mg/dL (8.5-10.1)
[2021-06-02 07:06] LABS: Bilirubin, Total 0.4 mg/dL (0.2-1.0); Total Protein 4.8 g/dL (6.4-8.2)
[2021-06-02] MEDS: cefTRIAXone 1GM/50ML D5W 50 ML IV SCH (08:56)
[2021-06-02] MEDS: ASPirin 81 mg TAB PO SCH (08:57)
[2021-06-02] MEDS: GABAPENTIN 100 MG CAP PO SCH ×2 (08:57→22:25)
[2021-06-02] MEDS: METOPROLOL TARTRATE 25 MG TAB PO SCH (08:58)
[2021-06-02] MEDS: MAGNESIUM OXIDE 400 MG TAB PO SCH ×2 (08:58→22:25)
[2021-06-02] MEDS: LOSARTAN POTASSIUM 50 MG TAB PO SCH (08:59)
[2021-06-02 09:00] VITALS: BP 151/71
[2021-06-02] MEDS: PANTOPRAZOLE 40 MG TAB PO SCH (09:00)
[2021-06-02] MEDS: FLECAINIDE ACETATE 50 MG TAB PO SCH ×2 (09:02→22:05)
[2021-06-02] MEDS: MEROPENEM 1GM IVPB 100 ML IV SCH ×2 (11:50→22:25)
[2021-06-02] MEDS ORDERED: dilTIAZem 25 MG/5 ML VIAL IV ONE ×3 (12:30→15:00)
[2021-06-02] MEDS ORDERED: dilTIAZem 120MG ER CAP PO ONE (12:30)
[2021-06-02 13:00] VITALS: BP 122/87
[2021-06-02 15:25] VITALS: BP 111/69
[2021-06-02 17:00] VITALS: BP 116/69
[2021-06-02 22:00] VITALS: BP 122/70
[2021-06-03] MEDS: MORPHINE SULFATE INJECTION 2 MG/ML SYRG IV PRN (02:45)
[2021-06-03 05:00] VITALS: BP 100/62
[2021-06-03 06:20] LABS: Basophils # (auto) 0 10 ^3/uL (0-0.2); Basophils % (auto) 0.2 % (0.0-2.0); Eosinophils # (auto) 0 10 ^3/uL (0-0.8); Eosinophils % (auto) 0.1 % (0.0-7.0); Hematocrit 40.9 % (36.0-46.0); Hemoglobin 13.6 g/dL (12.2-16.2); Lymphocytes # (auto) 2.3 10 ^3/uL (0.4-5.4); Mean Corpuscular Hemoglobin 31.1 pg (28.0-32.0); Mean Corpuscular Hgb Conc. 33.3 g/dL (32.0-36.0); Mean Corpuscular Volume 93.6 fL (80.0-100.0); Monocytes # (auto) 1.8 10 ^3/uL (0-1.3); Monocytes % (auto) 11.1 % (0.0-12.0); Neutrophils # (auto) 12.3 10 ^3/uL (1.6-8.6); Neutrophils % (auto) 74.6 % (37.0-80.0); Red Blood Cells 4.37 10^6/uL (4.0-5.20); Red Cell Distribution Width 13.8 % (11.8-14.3); White Blood Cell 16.5 10^3/uL (4.4-10.8)
[2021-06-03 06:34] LABS: Albumin 1.9 g/dL (3.4-5.0); Calcium 7.7 mg/dL (8.5-10.1); Potassium 3.6 mmol/L (3.5-5.1)
[2021-06-03 06:39] LABS: BUN/Creatinine Ratio 25.5; Bilirubin, Total 0.6 mg/dL (0.2-1.0); Total Protein 4.6 g/dL (6.4-8.2)
[2021-06-03] MEDS: metroNIDAZOLE 500 MG TAB PO SCH ×3 (06:39→22:20)
[2021-06-03] MEDS: SUCRALFATE 1 GM/10 ML ORAL SUSP PO SCH ×4 (06:40→22:20)
[2021-06-03 08:00] VITALS: BP 122/62
[2021-06-03] MEDS ORDERED: DIGOXIN 0.25 MG TAB PO ONE ×2 (08:30→10:30)
[2021-06-03] MEDS: ASPirin 81 mg TAB PO SCH (08:59)
[2021-06-03] MEDS: PANTOPRAZOLE 40 MG TAB PO SCH (08:59)
[2021-06-03] MEDS: MAGNESIUM OXIDE 400 MG TAB PO SCH ×2 (08:59→22:20)
[2021-06-03] MEDS: MEROPENEM 1GM IVPB 100 ML IV SCH ×2 (09:00→22:21)
[2021-06-03] MEDS: GABAPENTIN 100 MG CAP PO SCH ×2 (09:01→22:20)
[2021-06-03] MEDS: FLECAINIDE ACETATE 50 MG TAB PO SCH ×2 (09:02→22:20)
[2021-06-03] MEDS: dilTIAZem 120MG ER CAP PO SCH (09:10)
[2021-06-03] MEDS ORDERED: dilTIAZem 120MG ER CAP PO SCH (10:00)
[2021-06-03] MEDS ORDERED: DIGOXIN 0.125 MG TAB PO SCH (10:00)
[2021-06-03] MEDS ORDERED: ENOXAPARIN SOD 40 MG/0.4 ML SYRINGE SC ONE (11:30)
[2021-06-03 12:00] VITALS: BP 117/64
[2021-06-03] MEDS: ONDANSETRON HCL 4 MG/2 ML VIAL IV PRN (13:08)
[2021-06-03 16:00] VITALS: BP 107/56
[2021-06-03 16:37] LABS: Magnesium 2.2 mg/dL (1.6-2.6); Potassium 4.2 mmol/L (3.5-5.1)
[2021-06-03] MEDS: SODIUM CHLORIDE 0.9% 1,000 ML IV SCH (18:26)
[2021-06-03 22:00] VITALS: BP_SYST 115; BP_SYST 98; BP_DIAS 51; BP_DIAS 59
[2021-06-03] MEDS ORDERED: VANCOMYCIN 1GM/250ML 250 ML IV ONE (22:00)
[2021-06-03] MEDS: TEMAZEPAM 15 MG CAP PO PRN (22:21)
[2021-06-04] MEDS: SODIUM CHLORIDE 0.9% 1,000 ML IV SCH ×2 (00:50→14:10)
[2021-06-04 05:00] VITALS: BP 131/58
[2021-06-04] MEDS: metroNIDAZOLE 500 MG TAB PO SCH (06:00)
[2021-06-04 06:06] LABS: Basophils # (auto) 0 10 ^3/uL (0-0.2); Basophils % (auto) 0.1 % (0.0-2.0); Eosinophils # (auto) 0.1 10 ^3/uL (0-0.8); Eosinophils % (auto) 0.8 % (0.0-7.0); Hematocrit 36.2 % (36.0-46.0); Hemoglobin 12.2 g/dL (12.2-16.2); Lymphocytes # (auto) 1.9 10 ^3/uL (0.4-5.4); Lymphocytes % (auto) 11.1 % (10.0-50.0); Mean Corpuscular Hemoglobin 31.5 pg (28.0-32.0); Mean Corpuscular Hgb Conc. 33.7 g/dL (32.0-36.0); Mean Corpuscular Volume 93.3 fL (80.0-100.0); Monocytes # (auto) 1.3 10 ^3/uL (0-1.3); Monocytes % (auto) 7.9 % (0.0-12.0); Neutrophils # (auto) 13.6 10 ^3/uL (1.6-8.6); Neutrophils % (auto) 80.1 % (37.0-80.0); Red Blood Cells 3.88 10^6/uL (4.0-5.20); Red Cell Distribution Width 13.6 % (11.8-14.3); White Blood Cell 16.9 10^3/uL (4.4-10.8)
[2021-06-04 06:26] LABS: Potassium 3.5 mmol/L (3.5-5.1)
[2021-06-04 06:33] LABS: Albumin 1.9 g/dL (3.4-5.0); Bilirubin, Total 0.5 mg/dL (0.2-1.0); Calcium 7.7 mg/dL (8.5-10.1); Magnesium 2.8 mg/dL (1.6-2.6); Total Protein 4.5 g/dL (6.4-8.2)
[2021-06-04] MEDS: SUCRALFATE 1 GM/10 ML ORAL SUSP PO SCH ×2 (06:37→10:58)
[2021-06-04 08:00] VITALS: BP 120/64
[2021-06-04] MEDS ORDERED: ENOXAPARIN SOD 40 MG/0.4 ML SYRINGE SC SCH (10:00)
[2021-06-04] MEDS: MEROPENEM 1GM IVPB 100 ML IV SCH ×2 (10:55→21:07)
[2021-06-04] MEDS: ASPirin 81 mg TAB PO SCH (10:55)
[2021-06-04] MEDS: dilTIAZem 120MG ER CAP PO SCH (10:56)
[2021-06-04] MEDS: DIGOXIN 0.125 MG TAB PO SCH (10:57)
[2021-06-04] MEDS: MAGNESIUM OXIDE 400 MG TAB PO SCH ×2 (10:57→21:08)
[2021-06-04] MEDS: PANTOPRAZOLE 40 MG TAB PO SCH (10:58)
[2021-06-04] MEDS: GABAPENTIN 100 MG CAP PO SCH ×2 (10:58→21:08)
[2021-06-04] MEDS ORDERED: LACTULOSE 20Gm/30ML SOLN PO ONE (11:45)
[2021-06-04 12:00] VITALS: BP 124/64
[2021-06-04] MEDS: FLECAINIDE ACETATE 50 MG TAB PO SCH ×2 (12:20→21:13)
[2021-06-04] MEDS: MORPHINE SULFATE INJECTION 2 MG/ML SYRG IV PRN (14:31)
[2021-06-04] MEDS ORDERED: POTASSIUM EFFERVESENT TAB 25 MEQ PO ONE (15:45)
[2021-06-04 16:00] VITALS: BP 120/69
[2021-06-04 20:00] VITALS: BP 125/65
[2021-06-04] MEDS: APIXABAN 5 MG TAB PO SCH (21:07)
[2021-06-04] MEDS: TEMAZEPAM 15 MG CAP PO PRN (21:08)
[2021-06-04] MEDS: LACTULOSE 20Gm/30ML SOLN PO SCH (21:09)
[2021-06-04 22:18] VITALS: BP 117/61
[2021-06-05] MEDS: SODIUM CHLORIDE 0.9% 1,000 ML IV SCH (03:30)
[2021-06-05 05:41] VITALS: BP 130/67
[2021-06-05 06:51] LABS: Basophils # (auto) 0 10 ^3/uL (0-0.2); Basophils % (auto) 0.2 % (0.0-2.0); Eosinophils # (auto) 0.1 10 ^3/uL (0-0.8); Eosinophils % (auto) 0.8 % (0.0-7.0); Hematocrit 36.9 % (36.0-46.0); Hemoglobin 12.5 g/dL (12.2-16.2); Lymphocytes # (auto) 2.3 10 ^3/uL (0.4-5.4); Lymphocytes % (auto) 12.7 % (10.0-50.0); Mean Corpuscular Hemoglobin 31.8 pg (28.0-32.0); Mean Corpuscular Hgb Conc. 33.8 g/dL (32.0-36.0); Mean Corpuscular Volume 94.1 fL (80.0-100.0); Monocytes # (auto) 1.3 10 ^3/uL (0-1.3); Monocytes % (auto) 6.9 % (0.0-12.0); Neutrophils # (auto) 14.6 10 ^3/uL (1.6-8.6); Neutrophils % (auto) 79.4 % (37.0-80.0); Red Blood Cells 3.93 10^6/uL (4.0-5.20); Red Cell Distribution Width 13.4 % (11.8-14.3); White Blood Cell 18.4 10^3/uL (4.4-10.8)
[2021-06-05 06:56] LABS: Potassium 3.9 mmol/L (3.5-5.1)
[2021-06-05 07:02] LABS: BUN/Creatinine Ratio 18.2; Bilirubin, Total 0.5 mg/dL (0.2-1.0)
[2021-06-05 09:00] VITALS: BP 121/54
[2021-06-05] MEDS: DIGOXIN 0.125 MG TAB PO SCH (09:43)
[2021-06-05] MEDS: MEROPENEM 1GM IVPB 100 ML IV SCH (09:43)
[2021-06-05] MEDS: APIXABAN 5 MG TAB PO SCH ×2 (09:43→21:12)
[2021-06-05] MEDS: GABAPENTIN 100 MG CAP PO SCH ×2 (09:44→21:12)
[2021-06-05] MEDS: PANTOPRAZOLE 40 MG TAB PO SCH (09:44)
[2021-06-05] MEDS: MAGNESIUM OXIDE 400 MG TAB PO SCH ×2 (09:44→21:12)
[2021-06-05] MEDS: LACTULOSE 20Gm/30ML SOLN PO SCH (09:45)
[2021-06-05] MEDS: FLECAINIDE ACETATE 50 MG TAB PO SCH ×2 (09:45→21:28)
[2021-06-05] MEDS: dilTIAZem 120MG ER CAP PO SCH (09:50)
[2021-06-05 12:44] VITALS: BP 117/49
[2021-06-05] MEDS: levoFLOXacin 500 MG TAB PO SCH (13:32)
[2021-06-05] MEDS: metroNIDAZOLE 500 MG TAB PO SCH ×2 (13:34→21:12)
[2021-06-05 16:46] VITALS: BP 106/56
[2021-06-05 20:00] VITALS: BP_SYST 122; BP_SYST 125; BP_DIAS 58; BP_DIAS 65
[2021-06-05] MEDS: MORPHINE SULFATE INJECTION 2 MG/ML SYRG IV PRN (21:11)
[2021-06-05] MEDS: TEMAZEPAM 15 MG CAP PO PRN (22:46)
[2021-06-06] MEDS: metroNIDAZOLE 500 MG TAB PO SCH ×3 (06:37→22:42)
[2021-06-06 07:36] LABS: Basophils # (auto) 0 10 ^3/uL (0-0.2); Basophils % (auto) 0.3 % (0.0-2.0); Eosinophils # (auto) 0.1 10 ^3/uL (0-0.8); Eosinophils % (auto) 1.1 % (0.0-7.0); Hematocrit 36.4 % (36.0-46.0); Lymphocytes # (auto) 1.3 10 ^3/uL (0.4-5.4); Lymphocytes % (auto) 11.1 % (10.0-50.0); Mean Corpuscular Hemoglobin 30.7 pg (28.0-32.0); Mean Corpuscular Volume 93.1 fL (80.0-100.0); Monocytes # (auto) 1.1 10 ^3/uL (0-1.3); Monocytes % (auto) 9.1 % (0.0-12.0); Neutrophils # (auto) 9.6 10 ^3/uL (1.6-8.6); Neutrophils % (auto) 78.4 % (37.0-80.0); Red Blood Cells 3.91 10^6/uL (4.0-5.20); Red Cell Distribution Width 13.8 % (11.8-14.3); White Blood Cell 12.2 10^3/uL (4.4-10.8)
[2021-06-06 07:53] LABS: BUN/Creatinine Ratio 17.5; Calcium 7.8 mg/dL (8.5-10.1); Potassium 3.8 mmol/L (3.5-5.1)
[2021-06-06] MEDS: LORazepam 2MG/ML-1ML VIAL IV PRN ×2 (08:36→22:43)
[2021-06-06] MEDS: APIXABAN 5 MG TAB PO SCH ×2 (08:46→22:42)
[2021-06-06] MEDS: MAGNESIUM OXIDE 400 MG TAB PO SCH ×2 (08:46→22:42)
[2021-06-06] MEDS: levoFLOXacin 500 MG TAB PO SCH (08:46)
[2021-06-06] MEDS: DIGOXIN 0.125 MG TAB PO SCH (08:46)
[2021-06-06] MEDS: GABAPENTIN 100 MG CAP PO SCH ×2 (08:47→22:43)
[2021-06-06] MEDS: PANTOPRAZOLE 40 MG TAB PO SCH (08:47)
[2021-06-06 09:00] VITALS: BP 131/72
[2021-06-06] MEDS: dilTIAZem 120MG ER CAP PO SCH (10:00)
[2021-06-06] MEDS: FLECAINIDE ACETATE 50 MG TAB PO SCH ×2 (10:00→22:42)
[2021-06-06 12:28] VITALS: BP 131/72
[2021-06-06 13:00] VITALS: BP 131/64
[2021-06-06 16:42] VITALS: BP 124/59
[2021-06-06 22:00] VITALS: BP 119/63
[2021-06-06] MEDS: TEMAZEPAM 15 MG CAP PO PRN (22:41)
[2021-06-07 05:00] VITALS: BP 127/63
[2021-06-07] MEDS: metroNIDAZOLE 500 MG TAB PO SCH (05:45)
[2021-06-07 09:08] VITALS: BP 129/63
[2021-06-07] MEDS: APIXABAN 5 MG TAB PO SCH (09:20)
[2021-06-07] MEDS: dilTIAZem 120MG ER CAP PO SCH (09:20)
[2021-06-07] MEDS: DIGOXIN 0.125 MG TAB PO SCH (09:20)
[2021-06-07] MEDS: PANTOPRAZOLE 40 MG TAB PO SCH (09:21)
[2021-06-07] MEDS: GABAPENTIN 100 MG CAP PO SCH (09:21)
[2021-06-07] MEDS: levoFLOXacin 500 MG TAB PO SCH (09:21)
[2021-06-07] MEDS: MAGNESIUM OXIDE 400 MG TAB PO SCH (09:21)
[2021-06-07] MEDS: FLECAINIDE ACETATE 50 MG TAB PO SCH (09:21)
[2021-06-07] MEDS: HYDROcodone-ACET 5/325MG TAB PO PRN (09:58)
== END 2021-06-07 12:05 | disposition home health service (06) | DRG 853 ==
LOC: ER 04:15 → EDBD 04:15 → TELE 13:01 → WEST WING 23:04 → TELE-WESTW 23:12
PROVIDERS: ADMIT Hospitalist; ATTEND Internal Medicine
PROC: BF40ZZZ Ultrasonography of Bile Ducts (ICD-10-PCS; 2021-05-29)
PROC: BF101ZZ Fluoroscopy of Bile Ducts using Low Osmolar Contrast (ICD-10-PCS; 2021-05-29)
PROC: 0F9430Z Drainage of Gallbladder with Drainage Device, Percutaneous Approach (ICD-10-PCS; 2021-05-29)
PROC: BF101ZZ Fluoroscopy of Bile Ducts using Low Osmolar Contrast (ICD-10-PCS; 2021-05-30)
PROC: 0F2BX0Z Change Drainage Device in Hepatobiliary Duct, External Approach (ICD-10-PCS; 2021-05-30)
PROC: 0FT44ZZ Resection of Gallbladder, Percutaneous Endoscopic Approach (ICD-10-PCS; principal; 2021-05-31 12:59)
DX: A41.9 Sepsis, unspecified organism (principal); I21.A1 Myocardial infarction type 2; K85.90 Acute pancreatitis without necrosis or infection, unspecified; J18.9 Pneumonia, unspecified organism; I50.31 Acute diastolic (congestive) heart failure; N39.0 Urinary tract infection, site not specified; I47.1 Supraventricular tachycardia; K80.66 Calculus of gallbladder and bile duct with acute and chronic cholecystitis without obstruction; K21.9 Gastro-esophageal reflux disease without esophagitis; K29.70 Gastritis, unspecified, without bleeding; K59.00 Constipation, unspecified; E78.5 Hyperlipidemia, unspecified; Z20.822 Contact with and (suspected) exposure to COVID-19; F41.9 Anxiety disorder, unspecified; M19.90 Unspecified osteoarthritis, unspecified site; I48.0 Paroxysmal atrial fibrillation; R32 Unspecified urinary incontinence; I10 Essential (primary) hypertension; Z79.899 Other long term (current) drug therapy
CPT/HCPCS: 36415; 47532; 71045; 74176; 76942; 80048; 80053; 80061; 80162; 81001; 82150; 82247; 82306; 82962; 83036; 83605; 83690; 83735; 83880; 84100; 84132; 84443; 84484; 84550; 85025; 85048; 85610; 85730; 86850; 86900; 86901; 87040; 87086; 87088; 87186; 87426; 93005; 93306; 96365; 96375; 97163; 99152; 99153; C1729; C9113; G0378; J0153; J0690; J0696; J1100; J1885; J2001; J2185; J2250; J2405; J3480; J3490; J7060; Q9967

== ENCOUNTER → 2021-12-05 | Outpatient (CLI) | payer OTHER ==
[2021-12-05 14:46] LABS: Basophils # (auto) 0 10 ^3/uL (0-0.2); Basophils % (auto) 0.2 % (0.0-2.0); Eosinophils # (auto) 0.1 10 ^3/uL (0-0.8); Eosinophils % (auto) 0.8 % (0.0-7.0); Hematocrit 40.6 % (36.0-46.0); Hemoglobin 13.6 g/dL (12.2-16.2); Lymphocytes # (auto) 2.6 10 ^3/uL (0.4-5.4); Lymphocytes % (auto) 30.4 % (10.0-50.0); Mean Corpuscular Hemoglobin 31.9 pg (28.0-32.0); Mean Corpuscular Hgb Conc. 33.5 g/dL (32.0-36.0); Mean Corpuscular Volume 95.3 fL (80.0-100.0); Monocytes # (auto) 0.6 10 ^3/uL (0-1.3); Monocytes % (auto) 6.9 % (0.0-12.0); Neutrophils # (auto) 5.2 10 ^3/uL (1.6-8.6); Neutrophils % (auto) 61.7 % (37.0-80.0); Nucleated Red Blood Cells % 0.1 %; Red Blood Cells 4.26 10^6/uL (4.0-5.20); White Blood Cell 8.5 10^3/uL (4.4-10.8)
[2021-12-05 15:00] LABS: INR 0.97 (0.9-1.15); Partial Thromboplastin Time 27.2 sec (23.6-33.0)
== END | disposition home or self-care (01) ==
LOC: LAB 14:19
PROVIDERS: ATTEND Internal Medicine
DX: E04.1 Nontoxic single thyroid nodule (principal)
CPT/HCPCS: 36415; 85025; 85610; 85730

== ENCOUNTER → 2021-12-21 | Outpatient (CLI) | payer OTHER | END | disposition home or self-care (01) | LOC: LAB 12:00 | PROVIDERS: ATTEND Family Medicine | DX: C44.92 Squamous cell carcinoma of skin, unspecified (principal) | CPT/HCPCS: 88302 ==

== ENCOUNTER → 2022-04-23 | Outpatient (CLI) | payer OTHER ==
[2022-04-23 12:43] LABS: Basophils # (auto) 0 10 ^3/uL (0-0.2); Basophils % (auto) 0.2 % (0.0-2.0); Eosinophils # (auto) 0.1 10 ^3/uL (0-0.8); Eosinophils % (auto) 0.5 % (0.0-7.0); Hematocrit 38.4 % (36.0-46.0); Lymphocytes # (auto) 1.7 10 ^3/uL (0.4-5.4); Lymphocytes % (auto) 17.3 % (10.0-50.0); Mean Corpuscular Hemoglobin 32.7 pg (28.0-32.0); Mean Corpuscular Hgb Conc. 33.8 g/dL (32.0-36.0); Mean Corpuscular Volume 96.7 fL (80.0-100.0); Monocytes # (auto) 0.5 10 ^3/uL (0-1.3); Monocytes % (auto) 4.8 % (0.0-12.0); Neutrophils # (auto) 7.7 10 ^3/uL (1.6-8.6); Neutrophils % (auto) 77.2 % (37.0-80.0); Red Blood Cells 3.98 10^6/uL (4.0-5.20); Red Cell Distribution Width 13.3 % (11.8-14.3)
[2022-04-23 13:05] LABS: Albumin 3.6 g/dL (3.4-5.0); BUN/Creatinine Ratio 20.9; Calcium 8.4 mg/dL (8.5-10.1); Potassium 4.2 mmol/L (3.5-5.1)
[2022-04-23 13:08] LABS: Bilirubin, Total 0.4 mg/dL (0.2-1.0); Total Protein 6.7 g/dL (6.4-8.2)
== END | disposition home or self-care (01) ==
LOC: LAB 12:23
PROVIDERS: ATTEND Internal Medicine
DX: K62.5 Hemorrhage of anus and rectum (principal)
CPT/HCPCS: 36415; 80053; 85025

== ENCOUNTER → 2022-05-27 | Outpatient (CLI) | payer OTHER | END | disposition home or self-care (01) | LOC: LAB 12:33 | PROVIDERS: ATTEND Internal Medicine Pulmonary Disease | DX: Z01.812 Encounter for preprocedural laboratory examination (principal); Z20.822 Contact with and (suspected) exposure to COVID-19 | CPT/HCPCS: 36415; 87426 ==

== ENCOUNTER → 2022-05-27 | Outpatient (CLI) | payer OTHER ==
[2022-05-27 09:35] LABS: Basophils # (auto) 0 10 ^3/uL (0-0.2); Basophils % (auto) 0.4 % (0.0-2.0); Eosinophils # (auto) 0.1 10 ^3/uL (0-0.8); Hematocrit 41.5 % (36.0-46.0); Lymphocytes # (auto) 2.6 10 ^3/uL (0.4-5.4); Lymphocytes % (auto) 29.4 % (10.0-50.0); Mean Corpuscular Hemoglobin 32.7 pg (28.0-32.0); Mean Corpuscular Hgb Conc. 33.7 g/dL (32.0-36.0); Monocytes # (auto) 0.5 10 ^3/uL (0-1.3); Monocytes % (auto) 5.9 % (0.0-12.0); Neutrophils # (auto) 5.6 10 ^3/uL (1.6-8.6); Neutrophils % (auto) 63.3 % (37.0-80.0); Red Blood Cells 4.28 10^6/uL (4.0-5.20); Red Cell Distribution Width 13.5 % (11.8-14.3); White Blood Cell 8.8 10^3/uL (4.4-10.8)
[2022-05-27 10:05] LABS: Albumin 3.6 g/dL (3.4-5.0); BUN/Creatinine Ratio 11.5; Calcium 9.3 mg/dL (8.5-10.1); Magnesium 2.4 mg/dL (1.6-2.6); Potassium 4.3 mmol/L (3.5-5.1); Total Protein 7.2 g/dL (6.4-8.2)
[2022-05-27 10:07] LABS: Urine Bacteria FEW /hpf (None Seen); Urine Blood 1+ /uL (Negative); Urine Mucus FEW (None Seen); Urine WBC 13 /hpf (0 - 5)
[2022-05-27 10:11] LABS: Bilirubin, Total 1.5 mg/dL (0.2-1.0)
== END | disposition home or self-care (01) ==
LOC: LAB 09:17
PROVIDERS: ATTEND Internal Medicine
DX: I48.0 Paroxysmal atrial fibrillation (principal); I10 Essential (primary) hypertension
CPT/HCPCS: 36415; 80053; 80061; 81001; 83735; 84439; 84443; 85025; 85652

== ENCOUNTER → 2022-05-28 | Outpatient (CLI) | payer OTHER | END | disposition home or self-care (01) | LOC: RT 10:32 | PROVIDERS: ATTEND Internal Medicine | DX: R06.02 Shortness of breath (principal); R06.00 Dyspnea, unspecified | CPT/HCPCS: 94060; 94727; 94729 ==

== ENCOUNTER → 2022-06-27 | Outpatient (CLI) | payer OTHER ==
[~2022-06-27] VITALS: Ht 157.5 cm; Wt 54.4 kg
[~2022-06-27] MED LIST changes: +ADENOSINE 46 MG in GIVE UN-DILUTED 0 ML IV ONE
== END | disposition home or self-care (01) ==
LOC: XYW 08:33
PROVIDERS: ATTEND Internal Medicine
DX: I25.118 Atherosclerotic heart disease of native coronary artery with other forms of angina pectoris (principal); I11.0 Hypertensive heart disease with heart failure; I50.9 Heart failure, unspecified; I47.1 Supraventricular tachycardia; R06.02 Shortness of breath; R06.09 Other forms of dyspnea
CPT/HCPCS: 78452; 93017; A9500; J0153

== ENCOUNTER 2022-08-14 08:02 | Day surgery (SDC) | payer OTHER ==
[2022-08-12 10:45] LABS: Basophils # (auto) 0 10 ^3/uL (0-0.2); Basophils % (auto) 0.3 % (0.0-2.0); Eosinophils # (auto) 0.1 10 ^3/uL (0-0.8); Hematocrit 44.1 % (36.0-46.0); Hemoglobin 14.6 g/dL (12.2-16.2); Lymphocytes % (auto) 32.2 % (10.0-50.0); Mean Corpuscular Hemoglobin 31.9 pg (28.0-32.0); Mean Corpuscular Volume 96.5 fL (80.0-100.0); Monocytes # (auto) 0.8 10 ^3/uL (0-1.3); Monocytes % (auto) 8.3 % (0.0-12.0); Neutrophils # (auto) 5.4 10 ^3/uL (1.6-8.6); Neutrophils % (auto) 58.2 % (37.0-80.0); Red Blood Cells 4.57 10^6/uL (4.0-5.20); Red Cell Distribution Width 13.5 % (11.8-14.3); White Blood Cell 9.3 10^3/uL (4.4-10.8)
[2022-08-12 11:01] LABS: Albumin 3.8 g/dL (3.4-5.0); Calcium 8.9 mg/dL (8.5-10.1)
[2022-08-12 11:04] LABS: BUN/Creatinine Ratio 13.5; Bilirubin, Total 0.5 mg/dL (0.2-1.0); Total Protein 7.2 g/dL (6.4-8.2)
[2022-08-12 12:13] LABS: INR 0.92 (0.9-1.15); Partial Thromboplastin Time 28.5 sec (24.6-33.4)
[2022-08-14] VITALS (9 sets, daily range): BP systolic 128–159; BP diastolic 60–74
[~2022-08-14] VITALS: Ht 160 cm; Wt 54.4 kg
[~2022-08-14 08:02] MED LIST changes: -ADENOSINE 46 MG in GIVE UN-DILUTED 0 ML IV ONE; +APIX5TAB PO; +ATOR10TA52 PO; -CLON0.5T3 PO; +DIGO0.12 PO; +ESOM40CA39 PO; +FLEC100T PO; +GABA300C10 PO; -LACT10SO70 PO; -OMEP20CA74 PO
[2022-08-14] MEDS ORDERED: IODIXANOL 320MG/ML 100ML BTL IV ONE ×2 (11:52→12:07)
[2022-08-14] MEDS ORDERED: LIDOCAINE 2%HCL (LOCAL ANESTH.) INJ 10ml MDV ONE (11:52)
[2022-08-14] MEDS ORDERED: VERAPAMIL 2.5MG/ML INJ 2ML VIAL IV ONE (11:57)
[2022-08-14] MEDS ORDERED: ANGIOMAX 250 MG VIAL IV ONE (11:57)
[2022-08-14] MEDS ORDERED: HEPARIN SODIUM (PORCINE) 5000 UNITS/ML 1ML VIAL ONE (11:57)
[2022-08-14] MEDS ORDERED: fentaNYL CITRATE 100 MCG/2 ML VL ONE (11:58)
[2022-08-14] MEDS ORDERED: MIDAZOLAM HCL 2MG/2ML 2ml VIAL (1mg/ml) ONE (11:58)
[2022-08-14] MEDS ORDERED: NITROGLYCERIN 5MG/ML 10ML VIAL IV ONE (11:59)
== END 2022-08-14 15:02 | disposition home or self-care (01) ==
LOC: CATH 08:02
PROVIDERS: ATTEND Internal Medicine
DX: R07.89 Other chest pain (principal); I77.1 Stricture of artery; F41.9 Anxiety disorder, unspecified; I10 Essential (primary) hypertension; Z79.899 Other long term (current) drug therapy; Z20.822 Contact with and (suspected) exposure to COVID-19
CPT/HCPCS: 36415; 80053; 85025; 85610; 85730; 93458; 99152; 99153; C1760; C1769; C1894; J1644; J2001; J2250; J3010; J3490; J7030; Q9967; U0003

== ENCOUNTER → 2022-12-09 | Outpatient (CLI) | payer OTHER ==
[2022-12-09 15:39] LABS: Basophils # (auto) 0 10 ^3/uL (0-0.2); Basophils % (auto) 0.2 % (0.0-2.0); Eosinophils # (auto) 0.1 10 ^3/uL (0-0.8); Eosinophils % (auto) 0.7 % (0.0-7.0); Hematocrit 40.5 % (36.0-46.0); Hemoglobin 13.7 g/dL (12.2-16.2); Lymphocytes # (auto) 2.6 10 ^3/uL (0.4-5.4); Lymphocytes % (auto) 26.7 % (10.0-50.0); Mean Corpuscular Hemoglobin 33.5 pg (28.0-32.0); Mean Corpuscular Hgb Conc. 33.7 g/dL (32.0-36.0); Mean Corpuscular Volume 99.4 fL (80.0-100.0); Monocytes # (auto) 0.6 10 ^3/uL (0-1.3); Monocytes % (auto) 6.4 % (0.0-12.0); Neutrophils # (auto) 6.5 10 ^3/uL (1.6-8.6); Nucleated Red Blood Cells % 0.1 %; Red Blood Cells 4.08 10^6/uL (4.0-5.20); Red Cell Distribution Width 13.4 % (11.8-14.3); White Blood Cell 9.8 10^3/uL (4.4-10.8)
[2022-12-09 15:53] LABS: Albumin 3.6 g/dL (3.4-5.0); Calcium 8.7 mg/dL (8.5-10.1); Potassium 4.6 mmol/L (3.5-5.1)
[2022-12-09 15:56] LABS: BUN/Creatinine Ratio 15.5 (10.0-20.0); Bilirubin, Total 0.4 mg/dL (0.2-1.0); CRP High Sensitivity 0.06 mg/dL (< 0.3); Total Protein 6.9 g/dL (6.4-8.2)
== END | disposition home or self-care (01) ==
LOC: LAB 15:07
PROVIDERS: ATTEND Internal Medicine
DX: M25.50 Pain in unspecified joint (principal)
CPT/HCPCS: 36415; 80053; 85025; 85652; 86141

== ENCOUNTER → 2023-05-08 | Outpatient (CLI) | payer OTHER ==
[~2023-05-08] MED LIST changes: +GABA-1250 PO; -GABA300C10 PO
[2023-05-08 08:40] LABS: Basophils # (auto) 0 10 ^3/uL (0-0.2); Basophils % (auto) 0.3 % (0.0-2.0); Eosinophils # (auto) 0.2 10 ^3/uL (0-0.8); Eosinophils % (auto) 1.4 % (0.0-7.0); Hematocrit 42.2 % (36.0-46.0); Hemoglobin 13.9 g/dL (12.2-16.2); Lymphocytes # (auto) 3.7 10 ^3/uL (0.4-5.4); Lymphocytes % (auto) 32.9 % (10.0-50.0); Mean Corpuscular Hemoglobin 32.9 pg (28.0-32.0); Mean Corpuscular Volume 99.6 fL (80.0-100.0); Monocytes # (auto) 0.7 10 ^3/uL (0-1.3); Monocytes % (auto) 6.6 % (0.0-12.0); Neutrophils # (auto) 6.6 10 ^3/uL (1.6-8.6); Neutrophils % (auto) 58.8 % (37.0-80.0); Red Blood Cells 4.24 10^6/uL (4.0-5.20); Red Cell Distribution Width 13.1 % (11.8-14.3); White Blood Cell 11.2 10^3/uL (4.4-10.8)
[2023-05-08 09:07] LABS: Urine Bacteria NONE SEEN /hpf (None Seen); Urine Blood TRACE /uL (Negative); Urine Clarity HAZY (Clear); Urine Color Yellow (Yellow); Urine Mucus FEW (None Seen); Urine Protein, UAD TRACE (Negative); Urine Specific Gravity 1.018 (1.001-1.035); Urine WBC 64 /hpf (0 - 5); Urine pH 6.5 (5.0-8.0)
[2023-05-08 09:12] LABS: Alanine Aminotransferase 17 U/L (7-40); Albumin 4.3 g/dL (3.2-4.8); Alkaline Phosphatase 106 U/L (46-116); Anion Gap 9 (5-15); Aspartate Aminotransferase 13 U/L (13-40); BUN/Creatinine Ratio 9.8 (10.0-20.0); Blood Urea Nitrogen 9 mg/dL (9-23); Calcium 9.4 mg/dL (8.5-10.1); Carbon Dioxide 28 mmol/L (20-30); Chloride 106 mmol/L (98-107); Glucose 107 mg/dL (74-106); LDL Cholesterol 106 mg/dL (< 100); Potassium 4.1 mmol/L (3.5-5.1); Sodium 143 mmol/L (136-145); Triglycerides 157 mg/dL (< 150)
[2023-05-08 09:13] LABS: Bilirubin, Total 0.7 mg/dL (0.2-1.0); Cholesterol 176 mg/dL (< 200); HDL Cholesterol 48 mg/dL (40-59)
[2023-05-08 09:45] LABS: Erythrocyte Sedimentation Rate 12 mm/hr (0-20)
== END | disposition home or self-care (01) ==
LOC: LAB 08:26
PROVIDERS: ATTEND Internal Medicine
DX: I10 Essential (primary) hypertension (principal); I48.91 Unspecified atrial fibrillation
CPT/HCPCS: 36415; 80053; 80061; 81001; 82306; 84439; 84443; 85025; 85652

== ENCOUNTER → 2024-04-08 | Outpatient (CLI) | payer OTHER ==
[2024-04-08 08:45] LABS: Basophils # (auto) 0 10 ^3/uL (0-0.2); Basophils % (auto) 0.5 % (0.0-2.0); Eosinophils # (auto) 0.1 10 ^3/uL (0-0.8); Eosinophils % (auto) 1.1 % (0.0-7.0); Hematocrit 41.6 % (36.0-46.0); Lymphocytes # (auto) 3.2 10 ^3/uL (0.4-5.4); Lymphocytes % (auto) 36.2 % (10.0-50.0); Mean Corpuscular Hemoglobin 32.7 pg (28.0-32.0); Mean Corpuscular Hgb Conc. 33.6 g/dL (32.0-36.0); Mean Corpuscular Volume 97.4 fL (80.0-100.0); Monocytes # (auto) 0.7 10 ^3/uL (0-1.3); Monocytes % (auto) 7.4 % (0.0-12.0); Neutrophils # (auto) 4.8 10 ^3/uL (1.6-8.6); Neutrophils % (auto) 54.8 % (37.0-80.0); Nucleated Red Blood Cells % 0.1 %; Platelet Count (auto) 200 10^3/uL (140-450); Red Blood Cells 4.27 10^6/uL (4.0-5.20); Red Cell Distribution Width 13.7 % (11.8-14.3); White Blood Cell 8.8 10^3/uL (4.4-10.8)
[2024-04-08 09:12] LABS: Alanine Aminotransferase 12 U/L (7-40); Albumin 4.3 g/dL (3.2-4.8); Alkaline Phosphatase 111 U/L (46-116); Anion Gap 5 (5-15); Aspartate Aminotransferase 13 U/L (13-40); BUN/Creatinine Ratio 12.1 (10.0-20.0); Bilirubin, Total 0.7 mg/dL (0.2-1.0); Blood Urea Nitrogen 11 mg/dL (9-23); Calcium 9.6 mg/dL (8.7-10.4); Carbon Dioxide 30 mmol/L (20-30); Chloride 108 mmol/L (98-107); Cholesterol 155 mg/dL (< 200); Glucose 97 mg/dL (74-106); HDL Cholesterol 40 mg/dL (40-59); LDL Cholesterol 89 mg/dL (< 100); Potassium 4.3 mmol/L (3.5-5.1); Sodium 143 mmol/L (136-145); Triglycerides 142 mg/dL (< 150)
[2024-04-08 09:13] LABS: Total Protein 6.6 g/dL (5.7-8.2)
[2024-04-08 09:32] LABS: Urine Bacteria FEW /hpf (None Seen); Urine Blood 2+ /uL (Negative); Urine Clarity Ex.Turbid (Clear); Urine Color Light-Brown (Yellow); Urine Protein, UAD 1+ (Negative); Urine Urobilinogen Normal (Negative); Urine WBC 4351 /hpf (0 - 5); Urine WBC Clumps PRESENT /hpf (None Seen)
[2024-04-08 09:51] LABS: Erythrocyte Sedimentation Rate 6 mm/hr (0-20)
== END | disposition home or self-care (01) ==
LOC: LAB 08:27
PROVIDERS: ATTEND Internal Medicine
DX: I10 Essential (primary) hypertension (principal)
CPT/HCPCS: 36415; 80053; 80061; 81001; 84439; 84443; 85025; 85652

== ENCOUNTER 2024-06-08 15:06 | Inpatient (IN) | payer OTHER ==
[~2024-06-08] VITALS: Ht 157.5 cm; Wt 43.3 kg
[~2024-06-08 15:06] MED LIST changes: -APIX5TAB PO; +ASPI1TAB19 PO; -ATEN-60 PO; +ATOR10TA PO; -ATOR10TA52 PO; +DOCU-94 PO; +DULO-141 PO; -ESOM40CA39 PO; +ESOM40CA83 PO; -FLEC100T PO; -GABA-1250 PO; +MELA5TAB16 PO; +MIR30T PO; +OXY10CRT PO; +OXYC325T14 PO; +SENN-105 PO; -TRAM50TA2 PO; +TRAZ-227 PO; +TRI05TP TOP
[2024-06-08 16:00] VITALS: BP 113/58; PULSE 68; RESP 16; TEMP 97.9; O2SAT 96
[2024-06-08] MEDS ORDERED: ACETAMINOPHEN 325 MG TAB PO PRN (16:45)
[2024-06-08] MEDS ORDERED: LORazepam 0.5 MG TAB PO PRN (16:45)
--- NOTE | 2024-06-08 16:46 | DVHHP2 ---
History of Present Illness History of Present Illness 83-year-old female with past medical history of AFib, arrhythmia on antiarrhythmics, chronic neck pain, who underwent Right ORIF 05/12/24 here at [facility]. Patient had a hematoma during last admission, was transfused PRBC. Eliquis was stopped. Now patient was having worsening pain, was seen in Ortho clinic and recommended admission for Right ORIF Revision on Friday06/14/[address] Knutson. Past Medical History See HPI Review of Systems Constitutional: No: Fever, Chills, Sweats, Weakness, Malaise, Other Eyes: No: Pain, Vision change, Conjunctivae inflammation, Eyelid inflammation, Other, Redness ENT: No: Ear pain, Ear discharge, Nose pain, Nose discharge, Nose congestion, Mouth pain, Mouth swelling, Throat pain, Throat swelling, Other Respiratory: No: Cough, Dry, Shortness of breath, SOB with excertion, Wheezing, Hemoptysis, Pleuritic Pain, Sputum, Wheezing, Other Cardiovascular: No: Chest Pain, Palpitations, Orthopnea, Paroxysmal Noc. Dyspnea, Edema, Lt Headedness, Other Gastrointestinal: No: Nausea, Vomiting, Abdominal Pain, Diarrhea, Constipation, Melena, Hematochezia, Other Genitourinary: No Dysuria, No Frequency, No Incontinence, No Hematuria, No Retention, No Other Musculoskeletal: leg pain Skin: No: Rash, Lesions, Jaundice, Bruising, Other Neurological: No: Weakness, Numbness, Incoordination, Change in speech, Confusion, Seizures, Other Allergies: Coded Allergies: NO KNOWN ALLERGIES (Unverified , 08/12/22) Medications Current Medications Medications Dose Ordered Sig/Jose Route Start Time Stop Time Status Last Admin Dose Admin Sodium Chloride 10 ml Q8HR IV 06/08/24 22:00 UNV Lorazepam 0.5 mg Q6HP PRN PO 06/08/24 16:45 UNV Docusate Sodium 100 mg BIDPRN PRN PO 06/08/24 16:45 UNV Acetaminophen 650 mg Q6HP PRN PO 06/08/24 16:45 UNV Acetaminophen/ Hydrocodone Bitart 1 tab Q4HP PRN PO 06/08/24 16:45 UNV Ondansetron HCl 4 mg Q4HP PRN IV 06/08/24 16:45 UNV Morphine Sulfate 2 mg Q4HPRN PRN IV 06/08/24 16:45 UNV Enoxaparin Sodium 40 mg DAILY SC 06/09/24 10:00 UNV Exam Vital Signs Vital Signs Date Time Temp Pulse Resp B/P (MAP) Pulse Ox O2 Delivery O2 Flow Rate FiO2 06/08/24 16:00 97.9 68 16 113/58 (76) 96 97.9 General Appearance: Alert, Oriented X3, Cooperative HEENT: Atraumatic, PERRLA, EOMI Respiratory: Clear to auscultation Cardiovascular: Regular rate, Normal S1, Normal S2 Abdominal: Normal bowel sounds, Soft Neuro: Other (Unable to move Right Hip) Assessment/Plan Assessment/Plan # Failed Right ORIF - Revision on Friday06/14/[address] Knutson - Pain Control - Incentive Spirometer # A-Fibb - HOLD AC due to last hematoma Plan discussed with: Patient My Orders Orders - DAMARIS SANCHEZ MD Procedure Category Date Status Time Admit ADMIT 06/08/24 Transmitted 16:39 Code Status CODE 06/08/24 Transmitted 16:39 Review Orders With [facility] 06/08/24 In Process Adm. 16:39 Maintain Bed Rest [facility] 06/08/24 In Process 16:39 Regular Diet DIET 06/08/24 Transmitted Dinner Sodium Chloride Lock PHA 06/08/24 Logged (Saline Lock Ns) 22:00 Lorazepam Tablet [facility] 06/08/24 Logged (Ativan Tablet) 16:45 Docusate Sodium PHA 06/08/24 Logged Capsule (Colace 16:45 Acetaminophen Tablet PHA 06/08/24 Logged (Tylenol Tablet) 16:45 Notify Of Changes [facility] 06/08/24 In Process From Base 16:39 Advance Directive [facility] 06/08/24 In Process 16:39 Patient Condition ORDERS 06/08/24 Transmitted 16:39 Allergies [facility] 06/08/24 In Process 16:39 Hydrocodone-Acet PHA 06/08/24 Logged 5/325mg Tab ([place] 16:45 Ondansetron Hcl PHA 06/08/24 Logged (Zofran) 16:45 Morphine Sulfate PHA 06/08/24 Logged Injection 16:45 Enoxaparin Sodium PHA 06/09/24 Logged (Lovenox) 10:00 Comprehensive LAB 06/09/24 Verified Metabolic Panel 04:00 Complete Blood Count LAB 06/09/24 Verified 04:00 Date of Service: Jun 08, 2024 Billing Provider: DAMARIS SANCHEZ MD Common Visit Codes: [id number] INP/OBS CARE (HIGH) DAMARIS SANCHEZ MD Jun 08, 2024 16:46
[2024-06-08] MEDS ORDERED: FLE50T PO (17:12)
[2024-06-08] MEDS ORDERED: ATEN50TA PO (17:12)
[2024-06-08] MEDS ORDERED: GABA-1250 PO (17:12)
[2024-06-08] MEDS ORDERED: APIX2.5T PO (17:12)
[2024-06-08 20:00] VITALS: PULSE 77; RESP 16; O2SAT 95
[2024-06-08] MEDS: ONDANSETRON HCL 4 MG/2 ML VIAL IV PRN (20:42)
[2024-06-08] MEDS: MORPHINE SULFATE INJ 2 MG/ml SYRG IV PRN (20:47)
[2024-06-08 21:00] VITALS: BP 105/56; PULSE 77; RESP 16; TEMP 98.3; O2SAT 95
[2024-06-08] MEDS: HYDROcodone-ACET 5/325MG TAB PO PRN (23:58)
[2024-06-09] VITALS (7 sets, daily range): BP systolic 111–135; BP diastolic 57–70; PULSE 54–90; RESP 12–20; TEMP 97.3–98.1; O2SAT 93–98
[2024-06-09] MEDS: DOCUSATE SOD 100 MG CAP PO PRN
[2024-06-09] MEDS: SODIUM CHLOR 0.9% PF (SALINE LOCK) 10ML VIAL/SYR IV SCH (00:02)
--- NOTE | 2024-06-09 00:05 | DVH ---
Exam: CT PELVIS WO CONTRAST History: FRACTURE Comparison Study: CT abdomen and pelvis May 17, 2024 Technique: Multidetector spiral CT of the pelvis was performed from iliac crests to pubic symphysis. 100 cc of intravenous contrast was administered during this examination. Portal venous imaging was obtained. Axial, coronal and sagittal multiplanar reformats were performed by the technologist on a separate workstation. Radiation Dose : CT Dose: CTDI volume is 7.47 mGy. Dose-length product is 272.96 mGy*cm Findings: Visualized bowel: Small bowel and colon are normal in caliber and distribution. The appendix is not visualized; however, no secondary findings of acute appendicitis identified. Ascites: Absent Lymphadenopathy: No pelvic or mesenteric lymphadenopathy. Pelvis Wall and Mesentery: Unremarkable. Vasculature: The visualized abdominal aorta is normal in size and caliber. Abdominal and pelvic vess els demonstrate normal enhancement. Pelvic Organs: Sigmoid colon diverticulosis. [id number] fecal retention in the colon. Appendix is normal. Musculoskeletal: Status post orthopedic screw fixation of the left proximal femur. Intramedullary ivan and screw fixation of the right proximal femur with fracture of the right femoral neck. This is new compared to prior CT April 2024. There is interval extension of the orthopedic screws to the right acetabulum. Bladder: Unremarkable IMPRESSION: Interval fracturing of the right femoral neck with displacement of the orthopedic screws extending in to the right acetabulum. Surgical consultation recommended.
[2024-06-09 07:08] LABS: Basophils # (auto) 0 10 ^3/uL (0-0.2); Basophils % (auto) 0.5 % (0.0-2.0); Eosinophils # (auto) 0.1 10 ^3/uL (0-0.8); Eosinophils % (auto) 1.3 % (0.0-7.0); Hematocrit 35.8 % (36.0-46.0); Hemoglobin 12.2 g/dL (12.2-16.2); Lymphocytes % (auto) 22.7 % (10.0-50.0); Mean Corpuscular Hemoglobin 32.8 pg (28.0-32.0); Mean Corpuscular Volume 96.4 fL (80.0-100.0); Monocytes # (auto) 0.8 10 ^3/uL (0-1.3); Monocytes % (auto) 9.4 % (0.0-12.0); Neutrophils # (auto) 5.8 10 ^3/uL (1.6-8.6); Neutrophils % (auto) 66.1 % (37.0-80.0); Nucleated Red Blood Cells % 0.1 %; Platelet Count (auto) 291 10^3/uL (140-450); Red Blood Cells 3.71 10^6/uL (4.0-5.20); Red Cell Distribution Width 19.6 % (11.8-14.3); White Blood Cell 8.7 10^3/uL (4.4-10.8)
[2024-06-09 07:21] LABS: Albumin 3.2 g/dL (3.2-4.8); Alkaline Phosphatase 107 U/L (46-116); Anion Gap 6 (5-15); Aspartate Aminotransferase 15 U/L (13-40); Blood Urea Nitrogen 12 mg/dL (9-23); Calcium 9.5 mg/dL (8.7-10.4); Carbon Dioxide 28 mmol/L (20-31); Chloride 103 mmol/L (98-107); Glucose 96 mg/dL (74-106); Potassium 4.2 mmol/L (3.5-5.1); Sodium 137 mmol/L (136-145)
[2024-06-09 07:22] LABS: Bilirubin, Total 0.6 mg/dL (0.2-1.0); Total Protein 5.7 g/dL (5.7-8.2)
[2024-06-09 07:23] LABS: Alanine Aminotransferase < 9 U/L (7-40)
[2024-06-09] MEDS ORDERED: ENOXAPARIN SOD 40 MG/0.4 ML SYRINGE SC SCH (10:00)
--- NOTE | 2024-06-09 10:11 | DVH ---
CLINICAL INDICATION: 83 years old, Female; Pre-op evaluation. TECHNIQUE: Noncontrast CT of the right femur was obtained using axial images. Sagittal and coronal re formatted images are provided. COMPARISON: CT PELVIS WO CONTRAST on DOS: 06/08/24, CT CT R HIP WITH OUT CONTRAST on DOS: 05/10/24 CT Dose: CTDI volume is 8.42 mGy. Dose-length product is 588.42 mGy*cm FINDINGS: Right femoral neck fracture is again identified, status post dynamic screw and intramedullary nail fi xation. There is malpositioning of the dynamic screws which course along the superior margin of the femoral head and the tips of the screws terminate in the acetabulum. There is a new fracture through the posterior facet of the right greater trochanter since the prior preoperative CT of the right hip from 05/10/2024. The right femoral head remains seated in the acetabulum. Knee joint space is maintai nilesh. Extensive soft tissue swelling about the right hip. There is high density mass in the posterior righ t hip involving both the subcutaneous tissues and right gluteus muscles, measuring 11.3 by 6.0 cm (tr ansverse by craniocaudal ) compatible with hematoma. Sigmoid diverticulosis without acute diverticulitis. IMPRESSION: 1. Interval development of fracture through the posterior facet of the right greater trochanter and m alpositioning of the dynamic hip screws which now protrude into the acetabulum, new since prior ORIF for a previously seen right femoral neck fracture. No dislocation. 2. 11.3 cm right hip subcutaneous to intramuscular hematoma. All CT scans at this medical facility are performed using dose modulation techniques as appropriate t o a performed exam including the following: Automated exposure control was utilized; adjustment of th e MA and/or KV according to patient size; and use of iterative reconstruction technique.
--- NOTE | 2024-06-09 13:22 | DVHSR ---
APPROVED REPORT EXAM: Two-dimensional and M-mode echocardiogram with Doppler and color Doppler. Blood Pressure: 134/67 mmHg INDICATION Pre-Op RISK FACTORS Height: 5'2", Weight: 91 DIMENSIONS LVDd3.3 (3.8-5.7cm)LA (2D)3.3 (1.9-4.0cm)Aortic Root (2.0-3.7cm) LVDs2.0 (2.5-4.0cm)LA (MM) (1.9-4.0cm)Aortic Cusp Exc (1.5-2.0cm) EF (%) 70.0 (55-70%)Rt. Atrium3.2 (1.9-4.0cm)Asc. Aorta cm IVSd1.1 (0.7-1.1cm)RV (D) (1.8-2.4cm) Mitral Valve MitralMitral Stenosis E/A ratio0.02D MVAcm2 Tricuspid Valve TR Velocity2.32m/s [id number] Other Information Quality : Technically LimitedRhythm : Technically limited study due to body habitus and patient position. Conclusion Normal left ventricular size and dimension. Normal left ventricular systolic function estimated ejec tion fraction 55%. There is a grade 1 diastolic dysfunction. Normal right ventricular size and dimension. Normal right ventricular systolic function. Normal biatrial size and dimension. Normal aortic valve structure and function. Normal mitral valve structure and function. Normal tricuspid valve structure and function. The pulmonary valve is grossly normal. No pericardial effusion.
--- NOTE | 2024-06-09 18:29 | DVHPN2 ---
Subjective CT Pelvis was done. Await recommendations from Ortho. Changes from previous H/P or p: No Changes Eyes: No Pain, No Vision change, No Conjunctivae inflammation, No Eyelid inflammation, No Other, No Redness ENT: No Ear pain, No Ear discharge, No Nose pain, No Nose discharge, No Nose congestion, No Mouth pain, No Mouth swelling, No Throat pain, No Throat swelling, No Other Cardiovascular: No Chest Pain, No Palpitations, No Orthopnea, No Paroxysmal Noc. Dyspnea, No Edema, No Lt Headedness, No Other Respiratory: No Cough, No Dry, No Shortness of breath, No SOB with excertion, No Wheezing, No Hemoptysis, No Pleuritic Pain, No Sputum, No Other Gastrointestinal: No Nausea, No Vomiting, No Abdominal Pain, No Diarrhea, No Constipation, No Melena, No Hematochezia, No Other Genitourinary: No Dysuria, No Frequency, No Incontinence, No Hematuria, No Retention, No Other Musculoskeletal: leg pain Skin: No Rash, No Lesions, No Jaundice, No Bruising, No Other Objective Vitals Vital Signs Date Time Temp Pulse Resp B/P (MAP) Pulse Ox O2 Delivery O2 Flow Rate FiO2 06/09/24 17:00 98.1 70 14 131/70 (90) 96 98.1 06/09/24 08:00 Room Air* 0 21 Intake/Output Intake and Output 06/09/24 07:00 Intake Total 240 ml Balance 240 ml Intake Oral 240 ml # Voids 2 Exam General Appearance: Alert, Oriented X3, Cooperative HEENT: Atraumatic, PERRLA, EOMI Respiratory: Clear to auscultation Cardiovascular: Regular rate, Normal S1, Normal S2 Abdominal: Normal bowel sounds, Soft Neuro: Other (Unable to move Right Hip) Medications Current Medications Medications Dose Ordered Sig/Jose Route Start Time Stop Time Status Last Admin Dose Admin Sodium Chloride 10 ml Q8HR IV 06/08/24 22:00 06/09/24 16:23 10 ML Lorazepam 0.5 mg Q6HP PRN PO 06/08/24 16:45 Docusate Sodium 100 mg BIDPRN PRN PO 06/08/24 16:45 06/09/24 00:00 100 MG Acetaminophen 650 mg Q6HP PRN PO 06/08/24 16:45 Acetaminophen/ Hydrocodone Bitart 1 tab Q4HP PRN PO 06/08/24 16:45 06/08/24 23:58 1 TAB Ondansetron HCl 4 mg Q4HP PRN IV 06/08/24 16:45 06/09/24 06:32 4 MG Morphine Sulfate 2 mg Q4HPRN PRN IV 06/08/24 16:45 06/09/24 16:21 2 MG Enoxaparin Sodium 40 mg DAILY SC 06/09/24 10:00 Hold Laboratory Results Laboratory Tests 06/09/24 06:15 Chemistry Test 06/09/24 06:15 Albumin 3.2 g/dL (3.2-4.8) Calcium Level 9.5 mg/dL (8.7-10.4) Total Protein 5.7 g/dL (5.7-8.2) LFT Test 06/09/24 06:15 Alanine Aminotransferase (ALT) < 9 U/L (7-40) Alkaline Phosphatase 107 U/L (46-116) Aspartate Amino Transferase (AST) 15 U/L (13-40) Total Bilirubin 0.6 mg/dL (0.2-1.0) Assessment/Plan Assessment/Plan # Failed Right ORIF - Revision on Friday06/14/[address] Knutson vs. Transfer to [facility]. - Pain Control - Incentive Spirometer # A-Fibb - HOLD AC due to last hematoma # DVT Prop- SCDs while in bed Plan discussed with: Patient My Orders Orders - DAMARIS SANCHEZ MD Procedure Category Date Status Time Insert Ochoa Catheter KERRY 06/09/24 In Process 16:07 Date of Service: Jun 09, 2024 Billing Provider: DAMARIS SANCHEZ MD Common Visit Codes: [id number] INP/OBS CARE(HIGH) DAMARIS SANCHEZ MD Jun 09, 2024 18:29
--- NOTE | 2024-06-09 19:38 | DVH ---
Bilateral lower extremity venous duplex Clinical History: dvt Comparison: Right femur same day Technique: Duplex Doppler evaluation of the deep venous systems of both lower extremities from the common femora l veins to the popliteal veins including color Doppler and spectral/pulsed waveform analysis was perf ormed. Findings: RIGHT SIDE: The common femoral vein demonstrates appropriate compressibility and waveform variability. The right greater saphenous vein is nonvisualized. The femoral vein demonstrates appropriate compressibility and waveform variability. The deep femoral vein demonstrates appropriate compressibility and waveform variability. The popliteal vein and distal branches of the right lower extremity deep venous system are nonvisuali zed due to limited patient mobility. LEFT SIDE: The common femoral vein demonstrates appropriate compressibility and waveform variability. The left greater saphenous vein is not visualized. The femoral vein demonstrates appropriate compressibility and waveform variability. The deep femoral vein demonstrates appropriate compressibility and waveform variability. The popliteal vein demonstrates appropriate compressibility and waveform variability. There is normal compressibility at the tibioperoneal trunk. Impression: 1. Limited evaluation, with nonvisualization of the right popliteal vein and distal branches. No righ t or left femoropopliteal venous thrombosis is identified. Bilateral greater saphenous veins are nonv isualized. HS:Y
[2024-06-10 00:50] VITALS: BP 143/79; PULSE 91; RESP 16; TEMP 97.5; O2SAT 96
[2024-06-10 04:38] VITALS: BP 142/72; PULSE 82; RESP 17; TEMP 97.7; O2SAT 96
--- NOTE | 2024-06-10 14:48 | DVHDS2 ---
Discharge Summary Date of Admission Jun 08, 2024 at 15:30 Date of Discharge: Jun 10, 2024 Labs/Diagnostic Data: Laboratory Results Test 06/09/24 06:15 White Blood Count 8.7 10^3/uL (4.4-10.8) Red Blood Count 3.71 10^6/uL (4.0-5.20) Hemoglobin 12.2 g/dL (12.2-16.2) Hematocrit 35.8 % (36.0-46.0) Mean Corpuscular Volume 96.4 fL (80.0-100.0) Mean Corpuscular Hemoglobin 32.8 pg (28.0-32.0) Mean Corpuscular Hemoglobin Concent 34.0 g/dL (32.0-36.0) Red Cell Distribution Width 19.6 % (11.8-14.3) Platelet Count 291 10^3/uL (140-450) Mean Platelet Volume 7.0 fL (6.9-10.8) Neutrophils (%) (Auto) 66.1 % (37.0-80.0) Lymphocytes (%) (Auto) 22.7 % (10.0-50.0) Monocytes (%) (Auto) 9.4 % (0.0-12.0) Eosinophils (%) (Auto) 1.3 % (0.0-7.0) Basophils (%) (Auto) 0.5 % (0.0-2.0) Neutrophils # (Auto) 5.8 10 ^3/uL (1.6-8.6) Lymphocytes # (Auto) 2.0 10 ^3/uL (0.4-5.4) Monocytes # (Auto) 0.8 10 ^3/uL (0-1.3) Eosinophils # (Auto) 0.1 10 ^3/uL (0-0.8) Basophils # (Auto) 0 10 ^3/uL (0-0.2) Nucleated Red Blood Cells 0.1 % Sodium Level 137 mmol/L (136-145) Potassium Level 4.2 mmol/L (3.5-5.1) Chloride Level 103 mmol/L (98-107) Carbon Dioxide Level 28 mmol/L (20-31) Anion Gap 6 (5-15) Blood Urea Nitrogen 12 mg/dL (9-23) Creatinine 0.60 mg/dL (0.550-1.02) Glomerular Filtration Rate Calc 88 mL/min (>90) BUN/Creatinine Ratio 20.0 (10.0-20.0) Serum Glucose 96 mg/dL (74-106) Calcium Level 9.5 mg/dL (8.7-10.4) Total Bilirubin 0.6 mg/dL (0.2-1.0) Aspartate Amino Transferase (AST) 15 U/L (13-40) Alanine Aminotransferase (ALT) < 9 U/L (7-40) Alkaline Phosphatase 107 U/L (46-116) Total Protein 5.7 g/dL (5.7-8.2) Albumin 3.2 g/dL (3.2-4.8) Other Laboratory Tests 06/09/24 06:15 Brief Hx & Hospital Course: 83-year-old female with past medical history of AFib, arrhythmia on antiarrhythmics, chronic neck pain, who underwent Right ORIF 05/12/24 here at [facility]. Patient had a hematoma during last admission, was transfused PRBC. Eliquis was stopped. Now patient was having worsening pain, was seen in Ortho clinic and recommended admission for Right ORIF Revision. Patient will will discharged to [facility] for Ortho surgery. I spoke with the patients daughter and updated her on plan of care. Operations or Procedures CLINICAL INDICATION: 83 years old, Female; Pre-op evaluation. TECHNIQUE: Noncontrast CT of the right femur was obtained using axial images. Sagittal and coronal reformatted images are provided. COMPARISON: CT PELVIS WO CONTRAST on DOS: 06/08/24, CT CT R HIP WITH OUT CONTRAST on DOS: 05/10/24 CT Dose: CTDI volume is 8.42 mGy. Dose-length product is 588.42 mGy*cm FINDINGS: Right femoral neck fracture is again identified, status post dynamic screw and intramedullary nail fixation. There is malpositioning of the dynamic screws which course along the superior margin of the femoral head and the tips of the screws terminate in the acetabulum. There is a new fracture through the posterior facet of the right greater trochanter since the prior preoperative CT of the right hip from 05/10/2024. The right femoral head remains seated in the acetabulum. Knee joint space is maintained. Extensive soft tissue swelling about the right hip. There is high density mass in the posterior right hip involving both the subcutaneous tissues and right gluteus muscles, measuring 11.3 by 6.0 cm (transverse by craniocaudal ) compatible with hematoma. Sigmoid diverticulosis without acute diverticulitis. IMPRESSION: 1. Interval development of fracture through the posterior facet of the right greater trochanter and malpositioning of the dynamic hip screws which now protrude into the acetabulum, new since prior ORIF for a previously seen right femoral neck fracture. No dislocation. 2. 11.3 cm right hip subcutaneous to intramuscular hematoma. All CT scans at this medical facility are performed using dose modulation techniques as appropriate to a performed exam including the following: Automated exposure control was utilized; adjustment of the MA and/or KV according to patient size; and use of iterative reconstruction technique. Condition at Discharge: Poor Final Diagnosis/Problems List # Failed Right ORIF needing higher level of care for hip surgery. # A-Fib Discharge Disposition: Acute Care Facility Discharge Instruct/Medications Diet: See Comment Diet comment: NPO as pending surgery. Activity: Bed rest Follow Up/Referral: Please follow with PCP within 1-2 weeks of discharge and follow up with orthopedics surgery as directed. Medications: as per [facility] anticoagulation Discharge Statement: "Patient was advised to return to the ER or call 911 if any headaches, dizziness, shortness of breath, chest pain, abdominal pain, bleeding, fevers, or worsening of medical condition. Patient was counseled about treatment plan, medications, possible side effects, patientverbalized understanding. All questions were answered to the best of my ability. This discharge took greater then 30 minutes in planning, reviewing documentation, counseling the patient, and discussing with other team members." ASSESSMENT ASSESSMENT Assessment # Failed Right ORIF needing higher level of care for hip surgery. # A-Fib Date of Service: Jun 10, 2024 Billing Provider: DAMARIS SANCHEZ MD Common Visit Codes: [id number] DISCH DAY >30min DAMARIS SANCHEZ MD Jun 10, 2024 14:48
== END 2024-06-10 05:30 | disposition short-term general hospital (02) | DRG 560 ==
LOC: WEST WING 15:30
PROVIDERS: ADMIT Internal Medicine; ATTEND Internal Medicine
DX: T84.091A Other mechanical complication of internal left hip prosthesis, initial encounter (principal); Z68.1 Body mass index [BMI] 19.9 or less, adult; I48.91 Unspecified atrial fibrillation; G89.29 Other chronic pain; Z79.899 Other long term (current) drug therapy; Z96.642 Presence of left artificial hip joint; R63.6 Underweight
CPT/HCPCS: 36415; 72192; 73700; 80053; 85025; 93306; 93970; G0378; J2405

== ENCOUNTER 2024-06-11 14:22 | Inpatient (IN) | payer OTHER ==
[~2024-06-11 14:22] MED LIST changes: +APIX2.5T PO; +ATEN50TA PO; +FLE50T PO; +GABA-1250 PO
[2024-06-11 18:54] VITALS: BP 137/78; PULSE 114; RESP 16; TEMP 98.6; O2SAT 96
[2024-06-11 18:55] VITALS: PULSE 112; RESP 18; O2SAT 98
[2024-06-11] MEDS ORDERED: MORPHINE SULFATE INJ 2 MG/ml SYRG IV PRN (19:00)
[2024-06-11] MEDS ORDERED: NITROGLYCERIN 0.4 MG SL TAB SL PRN (19:00)
[2024-06-11] MEDS ORDERED: ACETAMINOPHEN 325 MG TAB PO PRN (19:00)
[2024-06-11] MEDS ORDERED: ONDANSETRON HCL 4 MG/2 ML VIAL IV PRN (19:00)
[2024-06-11] MEDS ORDERED: LORazepam 0.5 MG TAB PO PRN (19:00)
[2024-06-11] MEDS ORDERED: MAALOX PLUS or MAALOX 30 ML PO PRN (19:00)
[2024-06-11 19:01] VITALS: BP 137/78; PULSE 114; RESP 16; TEMP 98.6; O2SAT 96
[2024-06-11 20:00] VITALS: PULSE 120
[2024-06-11] MEDS: ERGOCALCIFEROL 50,000 UNIT(1.25MG) CAP PO SCH (21:09)
[2024-06-11] MEDS: FLECAINIDE ACETATE 50 MG TAB PO SCH (21:58)
[2024-06-11] MEDS: ATENOLOL 25 MG TAB PO SCH (21:59)
[2024-06-11] MEDS: ATORVASTATIN 20 MG TAB PO SCH (21:59)
[2024-06-11 22:00] VITALS: BP 129/70; PULSE 111; RESP 19; TEMP 98.6; O2SAT 97
[2024-06-11] MEDS: MORPHINE SULFATE INJ 2 MG/ml SYRG IV PRN (22:00)
[2024-06-11] MEDS: SENNA 8.6 MG TAB PO PRN (22:00)
[2024-06-11] MEDS: SODIUM CHLOR 0.9% PF (SALINE LOCK) 10ML VIAL/SYR IV SCH (22:06)
[2024-06-12] VITALS (7 sets, daily range): BP systolic 112–126; BP diastolic 60–68; PULSE 75–120; RESP 17–19; TEMP 97.7–98.4; O2SAT 93–98
[2024-06-12 06:49] LABS: Anion Gap 6 (5-15); Calcium 9.2 mg/dL (8.7-10.4); Carbon Dioxide 29 mmol/L (20-31); Chloride 100 mmol/L (98-107); Potassium 4.2 mmol/L (3.5-5.1); Sodium 135 mmol/L (136-145)
[2024-06-12 06:52] LABS: Basophils # (auto) 0 10 ^3/uL (0-0.2); Basophils % (auto) 0.2 % (0.0-2.0); Eosinophils # (auto) 0.1 10 ^3/uL (0-0.8); Eosinophils % (auto) 0.4 % (0.0-7.0); Hematocrit 32.7 % (36.0-46.0); Lymphocytes # (auto) 1.8 10 ^3/uL (0.4-5.4); Lymphocytes % (auto) 14.7 % (10.0-50.0); Mean Corpuscular Hemoglobin 32.7 pg (28.0-32.0); Mean Corpuscular Hgb Conc. 33.5 g/dL (32.0-36.0); Mean Corpuscular Volume 97.4 fL (80.0-100.0); Monocytes # (auto) 1.1 10 ^3/uL (0-1.3); Monocytes % (auto) 9.1 % (0.0-12.0); Neutrophils # (auto) 9.4 10 ^3/uL (1.6-8.6); Neutrophils % (auto) 75.6 % (37.0-80.0); Nucleated Red Blood Cells % 0.1 %; Platelet Count (auto) 309 10^3/uL (140-450); Red Blood Cells 3.36 10^6/uL (4.0-5.20); Red Cell Distribution Width 19.7 % (11.8-14.3); White Blood Cell 12.4 10^3/uL (4.4-10.8)
--- NOTE | 2024-06-12 06:52 | DVHHP2 ---
History of Present Illness Reason for Visit: Right Hip Fracture History of Present Illness The patient is a 83-year-old female with multiple past medical history including hypertension, angina, and AFib who presented to [facility] for evaluation of failed right ORIF at [facility] on 05/12/2024, needing higher level of care for hip surgery. Patient was seen and evaluated at the facility, underwent revision of right hip surgery on 06/10/2024 successfully with no complication. Postoperative, she went into a supraventricular tachycardia in the 170s, she has known reverted to sinus rhythm. Patient currently on flecainide, digoxin, and Eliquis as an outpatient, this medication were held prior to surgery. Stress radiography were then completed to ensure adequate reduction of the fracture, stress radiographs were then done to ensure that there was no other retained hardware. Laboratory data shows WBC 15.90, hemoglobin 12.2, hematocrit 36.9, platelets 362, sodium 138, potassium 4.8, BUN 21.0, creatinine 0.80, glucose 137. Patient was stabilized and then transferred to [facility] for ongoing care secondary to insurance purposes. On my assessment, patient denied chest pain, no headache, no dizziness, no diaphoresis, no shortness of breath, no nausea, no vomiting, no fever, no chills. Patient was admitted for further evaluation and medical management. Past Medical History AFIB, Angina, Anxiety, Gallstones, GERD, High Lipids, HTN Past Surgical History Cholecystectomy, Hernia Repair, Tonsillectomy, Left leg surgery Family History Reviewed, noncontributory to the management of this case. Past Social History The patient lives at home, denies smoking, alcohol or illicit drugs abuse. Review of Systems Constitutional: Yes: Weakness; No: Fever, Chills, Sweats, Malaise, Other Eyes: No: Pain, Vision change, Conjunctivae inflammation, Eyelid inflammation, Other, Redness ENT: No: Ear pain, Ear discharge, Nose pain, Nose discharge, Nose congestion, Mouth pain, Mouth swelling, Throat pain, Throat swelling, Other Respiratory: No: Cough, Dry, Shortness of breath, SOB with excertion, Wheezing, Hemoptysis, Pleuritic Pain, Sputum, Wheezing, Other Cardiovascular: No: Chest Pain, Palpitations, Orthopnea, Paroxysmal Noc. Dyspnea, Edema, Lt Headedness, Other Gastrointestinal: No: Nausea, Vomiting, Abdominal Pain, Diarrhea, Constipation, Melena, Hematochezia, Other Genitourinary: No Dysuria, No Frequency, No Incontinence, No Hematuria, No Retention, No Other Musculoskeletal: other (Rt hip and leg pain); No: neck pain, shoulder pain, arm pain, back pain, hand pain, leg pain, foot pain Skin: No: Rash, Lesions, Jaundice, Bruising, Other Neurological: No: Weakness, Numbness, Incoordination, Change in speech, Con fusion, Seizures, Other Allergies: Coded Allergies: Ciprofloxacin (Verified Allergy, Unknown, 06/11/24) Medications Current Medications Medications Dose Ordered Sig/Jose Route Start Time Stop Time Status Last Admin Dose Admin Sodium Chloride 10 ml Q8HR IV 06/11/24 22:00 06/11/24 22:06 10 ML Lorazepam 0.5 mg Q6HP PRN PO 06/11/24 19:00 Al Hydrox/Mg Hydrox/Simethicone 30 ml Q6HP PRN PO 06/11/24 19:00 Acetaminophen 650 mg Q6HP PRN PO 06/11/24 19:00 Acetaminophen/ Hydrocodone Bitart 1 tab Q4HP PRN PO 06/11/24 19:00 Ondansetron HCl 4 mg Q4HP PRN IV 06/11/24 19:00 Morphine Sulfate 2 mg Q4HPRN PRN IV 06/11/24 19:00 06/11/24 22:00 2 MG Enoxaparin Sodium 30 mg DAILY SC 06/12/24 10:00 Digoxin 0.125 mg DAILY PO 06/12/24 10:00 Flecainide Acetate 50 mg BID PO 06/11/24 22:00 06/11/24 21:58 50 MG Sennosides 17.2 mg DAILYP PRN PO 06/11/24 19:00 06/11/24 22:00 17.2 MG Atenolol 25 mg BID PO 06/11/24 22:00 06/11/24 21:59 25 MG Atorvastatin Calcium 10 mg HS PO 06/11/24 22:00 06/11/24 21:59 10 MG Pantoprazole Sodium 40 mg DAILY PO 06/12/24 10:00 Nitroglycerin 0.4 mg Q5MINP PRN SL 06/11/24 19:00 Morphine Sulfate 2 mg Q30M PRN IV 06/11/24 19:00 Cholecalciferol 4,000 unit DAILY PO 06/12/24 10:00 Ergocalciferol 50,000 unit Q7D PO 06/11/24 20:00 06/11/24 21:09 50,000 UNIT Exam Vital Signs Vital Signs Date Time Temp Pulse Resp B/P (MAP) Pulse Ox O2 Delivery O2 Flow Rate FiO2 06/12/24 05:37 98.0 85 18 116/60 (78) 93 98.0 06/11/24 20:00 Nasal Cannula* 2 28 General Appearance: Alert, Oriented X3, Cooperative, No acute distress HEENT: Atraumatic, PERRLA, EOMI, Mucous membr. moist/pink Respiratory: Clear to auscultation, Normal air movement Cardiovascular: Regular rate, Normal S1, Normal S2, No murmurs Abdominal: Normal bowel sounds, Soft, No tenderness, No hepatospenomegaly, No masses Extremities: No clubbing, No cyanosis, No edema, Normal pulses, Other (Right hip tenderness) Skin: No rashes, No breakdown, No significant lesion Neuro: Normal speech, Normal tone, Sensation intact, Cranial nerves 3-12 NL, Reflexes 2+, Other (Unsteady gait) Psych/Mental Status: Mental status NL, Mood NL Labs/Xrays A.m. labs pending Assessment/Plan Assessment/Plan Fall with injury Fracture of femoral neck, right Leukocytosis, unspecified Supraventricular tachycardia Right intratrochanteric nonunion Status post right hip ORIF Plan 1. Admit to telemetry unit 2. Breathing treatment 3. Pain control management 4. IV antibiotic management 5. Management of fluids and electrolytes 6. Consultation for PT/hospitalist 7. Diagnostic test chest x-ray 8. DVT prophylaxis-on Lovenox 9. Repeat labs CBC, CMP in a.m. 10. Home medication reviewed and reconciled 11. Continue with current medical management 12. Treatment plan discussed with patient and RN. Patient verbalized understanding. Plan discussed with: Patient, Other (RN) My Orders Orders - KRYSTEN LANDAVERDE DNP Procedure Category Date Status Time Pt Request For Service PT 06/12/24 Transmitted 05:46 Problem List: (1) Fall with injury (2) Fracture of femoral neck, right (3) Leukocytosis, unspecified (4) Supraventricular tachycardia (5) Closed intertrochanteric fracture of right femur with nonunion (6) Aftercare following right hip joint replacement surgery Date of Service: Jun 11, 2024 Billing Provider: KRYSTEN LANDAVERDE DNP Common Visit Codes: [id number] INP/OBS CARE (HIGH) KRYSTEN LANDAVERDE DNP Jun 12, 2024 06:52
[2024-06-12 06:55] LABS: Blood Urea Nitrogen 11 mg/dL (9-23); Glucose 111 mg/dL (74-106)
[2024-06-12] MEDS: cefTRIAXone 1GM/50ML D5W 50 ML IV SCH (07:00)
[2024-06-12] MEDS: PANTOPRAZOLE 40 MG/10 ML VIAL INJ IV SCH (09:45)
[2024-06-12] MEDS: CHOLECALCIFEROL (VITD3) 1,000UNIT=25mCg TAB PO SCH (09:46)
[2024-06-12] MEDS: DIGOXIN 0.125 MG TAB PO SCH (09:46)
[2024-06-12] MEDS: HYDROcodone-ACET 5/325MG TAB PO PRN (09:46)
[2024-06-12] MEDS: ENOXAPARIN SOD 30 MG/0.3 ML SYRINGE SC SCH (09:47)
[2024-06-12] MEDS ORDERED: PANTOPRAZOLE 40 MG TAB PO SCH (10:00)
--- NOTE | 2024-06-12 11:07 | DVHPN2 ---
Subjective Seen and examined at bedside. PT eval. Encouraged to use incentive spirometer. Changes from previous H/P or p: No Changes Eyes: No Pain, No Vision change, No Conjunctivae inflammation, No Eyelid inflammation, No Other, No Redness ENT: No Ear pain, No Ear discharge, No Nose pain, No Nose discharge, No Nose congestion, No Mouth pain, No Mouth swelling, No Throat pain, No Throat swelling, No Other Cardiovascular: No Chest Pain, No Palpitations, No Orthopnea, No Paroxysmal Noc. Dyspnea, No Edema, No Lt Headedness, No Other Respiratory: No Cough, No Dry, No Shortness of breath, No SOB with excertion, No Wheezing, No Hemoptysis, No Pleuritic Pain, No Sputum, No Other Gastrointestinal: No Nausea, No Vomiting, No Abdominal Pain, No Diarrhea, No Constipation, No Melena, No Hematochezia, No Other Genitourinary: No Dysuria, No Frequency, No Incontinence, No Hematuria, No Retention, No Other Musculoskeletal: No other, No neck pain, No shoulder pain, No arm pain, No back pain, No hand pain, No leg pain, No foot pain Skin: No Rash, No Lesions, No Jaundice, No Bruising, No Other Objective Vitals Vital Signs Date Time Temp Pulse Resp B/P (MAP) Pulse Ox O2 Delivery O2 Flow Rate FiO2 06/12/24 09:47 75 126/68 06/12/24 09:00 98.1 18 97 98.1 06/12/24 08:00 Nasal Cannula* 2 28 Intake/Output Intake and Output 06/12/24 07:00 Intake Total 400 ml Output Total 250 ml Balance 150 ml Intake Oral 400 ml Output Urine Total 250 ml Exam Gen: in bed NAD Cvs: N S1/S2, RRR Resp: Diminished Abd: Soft, NT Textile Knitter: AAO x 4 Ext: Right Hip Dressing CDI Medications Current Medications Medications Dose Ordered Sig/Jose Route Start Time Stop Time Status Last Admin Dose Admin Sodium Chloride 10 ml Q8HR IV 06/11/24 22:00 06/12/24 06:02 10 ML Lorazepam 0.5 mg Q6HP PRN PO 06/11/24 19:00 Al Hydrox/Mg Hydrox/Simethicone 30 ml Q6HP PRN PO 06/11/24 19:00 Acetaminophen 650 mg Q6HP PRN PO 06/11/24 19:00 Acetaminophen/ Hydrocodone Bitart 1 tab Q4HP PRN PO 06/11/24 19:00 06/12/24 09:46 1 TAB Ondansetron HCl 4 mg Q4HP PRN IV 06/11/24 19:00 Morphine Sulfate 2 mg Q4HPRN PRN IV 06/11/24 19:00 06/11/24 22:00 2 MG Enoxaparin Sodium 30 mg DAILY SC 06/12/24 10:00 06/12/24 09:47 30 MG Digoxin 0.125 mg DAILY PO 06/12/24 10:00 06/12/24 09:46 0.125 MG Flecainide Acetate 50 mg BID PO 06/11/24 22:00 06/12/24 09:45 50 MG Sennosides 17.2 mg DAILYP PRN PO 06/11/24 19:00 06/11/24 22:00 17.2 MG Atenolol 25 mg BID PO 06/11/24 22:00 06/12/24 09:47 25 MG Atorvastatin Calcium 10 mg HS PO 06/11/24 22:00 06/11/24 21:59 10 MG Nitroglycerin 0.4 mg Q5MINP PRN SL 06/11/24 19:00 Morphine Sulfate 2 mg Q30M PRN IV 06/11/24 19:00 Cholecalciferol 4,000 unit DAILY PO 06/12/24 10:00 06/12/24 09:46 4,000 UNIT Ergocalciferol 50,000 unit Q7D PO 06/11/24 20:00 06/11/24 21:09 50,000 UNIT Pantoprazole Sodium 40 mg DAILY IV 06/12/24 10:00 06/12/24 09:45 40 MG Ceftriaxone Sodium 50 ml @ 100 mls/hr DAILY@09 IV 06/12/24 07:00 06/12/24 07:00 100 MLS/HR Laboratory Results Laboratory Tests 06/12/24 05:30 Chemistry Test 06/12/24 05:30 Calcium Level 9.2 mg/dL (8.7-10.4) Magnesium Level 2.3 mg/dL (1.6-2.6) Assessment/Plan Assessment/Plan # Right Hip Revision at [facility] by Dr. Paulino 06/10/24 - PT Eval # A-Fibb - Cont Meds - Gradually will start full anticoagulation due to large Hematoma last visit # UTI - Cont Rocephin Plan discussed with: Patient My Orders Orders - DAMARIS SANCHEZ MD Procedure Category Date Status Time Admit ADMIT 06/11/24 Transmitted 18:46 Code Status CODE 06/11/24 Transmitted 18:46 Vital Signs KERRY 06/11/24 In Process 18:46 Review Orders With KERRY 06/11/24 In Process Adm. 18:46 Encourage Activity As KERRY 06/11/24 In Process Tolerate 18:46 Regular Diet DIET 06/12/24 Transmitted Breakfast Sodium Chloride Lock PHA 06/11/24 In Process (Saline Lock Ns) 22:00 Lorazepam Tablet PHA 06/11/24 In Process (Ativan Tablet) 19:00 Alum & Mag PHA 06/11/24 In Process Hydrox-Simethicone 19:00 Acetaminophen Tablet PHA 06/11/24 In Process (Tylenol Tablet) 19:00 Notify Of Changes KERRY 06/11/24 In Process From Base 18:46 Advance Directive KERRY 06/11/24 In Process 18:46 Patient Condition ORDERS 06/11/24 Transmitted 18:46 Allergies KERRY 06/11/24 In Process 18:46 Hydrocodone-Acet PHA 06/11/24 In Process 5/325mg Tab ([place] 19:00 Ondansetron Hcl PHA 06/11/24 In Process (Zofran) 19:00 Morphine Sulfate PHA 06/11/24 In Process Injection 19:00 Enoxaparin Sodium PHA 06/12/24 In Process (Lovenox) 10:00 Digoxin Tablet PHA 06/12/24 In Process (Lanoxin Tablet) 10:00 Flecainide Tablet PHA 06/11/24 In Process (Tambocor Tablet) 22:00 Senna Pod Tablet PHA 06/11/24 In Process (Senokot Tablet) 19:00 Atenolol Tablet PHA 06/11/24 In Process (Tenormin Tablet) 22:00 Atorvastatin (Lipitor) PHA 06/11/24 In Process 22:00 Nitroglycerin PHA 06/11/24 In Process Sublingual (Ntrostat 19:00 Morphine Sulfate PHA 06/11/24 In Process Injection 19:00 Stat Ekg For Chest KERRY 06/11/24 In Process Pain 18:46 Notify Md Of Changes KERRY 06/11/24 In Process From Base 18:46 Systems Integrator For KERRY 06/11/24 In Process 24 Hours 18:46 Emergency Dysrhythmia KERRY 06/11/24 In Process Protocol 18:46 Rhythm Strips Once KERRY 06/11/24 In Process Every Shift 18:46 Oxygen By Nasal RT 06/11/24 Transmitted Cannula 18:46 Cholecalciferol PHA 06/12/24 In Process Tablet (Vitamin D3 10:00 Ergocalciferol PHA 06/11/24 In Process (Vitamin D 50,000 20:00 * Wound Consult CONS 06/11/24 Transmitted 18:53 Mrsa Screen MU 06/11/24 In Process 21:08 Basic Metabolic Panel LAB 06/13/24 Verified 04:00 Complete Blood Count LAB 06/13/24 Verified 04:00 Magnesium LAB 06/13/24 Verified 04:00 Electrocardigram EKG 06/12/24 Logged 08:47 Incentive Spirometry ORDERS 06/12/24 Transmitted Q 1hr 11:04 Date of Service: Jun 12, 2024 Billing Provider: DAMARIS SANCHEZ MD Common Visit Codes: [id number] INP/OBS CARE(HIGH) DAMARIS SANCHEZ MD Jun 12, 2024 11:07
[2024-06-13] VITALS (7 sets, daily range): BP systolic 117–130; BP diastolic 59–69; PULSE 69–81; RESP 16–18; TEMP 97.6–98.9; O2SAT 94–98
[2024-06-13 07:07] LABS: Basophils # (auto) 0 10 ^3/uL (0-0.2); Basophils % (auto) 0.3 % (0.0-2.0); Eosinophils # (auto) 0.1 10 ^3/uL (0-0.8); Eosinophils % (auto) 0.9 % (0.0-7.0); Hemoglobin 11.6 g/dL (12.2-16.2); Lymphocytes % (auto) 18.2 % (10.0-50.0); Monocytes % (auto) 8.8 % (0.0-12.0); Neutrophils % (auto) 71.8 % (37.0-80.0); Nucleated Red Blood Cells % 0.1 %; Platelet Count (auto) 316 10^3/uL (140-450); Red Blood Cells 3.51 10^6/uL (4.0-5.20); White Blood Cell 11.1 10^3/uL (4.4-10.8)
[2024-06-13 07:16] LABS: Anion Gap 6 (5-15); Carbon Dioxide 29 mmol/L (20-31); Chloride 101 mmol/L (98-107); Sodium 136 mmol/L (136-145)
[2024-06-13 07:17] LABS: Calcium 9.2 mg/dL (8.7-10.4)
[2024-06-13 07:21] LABS: Glucose 107 mg/dL (74-106)
[2024-06-13 07:22] LABS: BUN/Creatinine Ratio 16.3 (10.0-20.0); Blood Urea Nitrogen 7 mg/dL (9-23); Magnesium 2.2 mg/dL (1.6-2.6)
--- NOTE | 2024-06-13 11:44 | DVHPN2 ---
Subjective No complaints except the pain in the right hip with movement Changes from previous H/P or p: Changes Eyes: No Pain, No Vision change, No Conjunctivae inflammation, No Eyelid inflammation, No Other, No Redness ENT: No Ear pain, No Ear discharge, No Nose pain, No Nose discharge, No Nose congestion, No Mouth pain, No Mouth swelling, No Throat pain, No Throat swelling, No Other Cardiovascular: No Chest Pain, No Palpitations, No Orthopnea, No Paroxysmal Noc. Dyspnea, No Edema, No Lt Headedness, No Other Respiratory: No Cough, No Dry, No Shortness of breath, No SOB with excertion, No Wheezing, No Hemoptysis, No Pleuritic Pain, No Sputum, No Other Gastrointestinal: No Nausea, No Vomiting, No Abdominal Pain, No Diarrhea, No Constipation, No Melena, No Hematochezia, No Other Genitourinary: No Dysuria, No Frequency, No Incontinence, No Hematuria, No Retention, No Other Musculoskeletal: No other, No neck pain, No shoulder pain, No arm pain, No back pain, No hand pain, No leg pain, No foot pain Skin: No Rash, No Lesions, No Jaundice, No Bruising, No Other Objective Vitals Vital Signs Date Time Temp Pulse Resp B/P (MAP) Pulse Ox O2 Delivery O2 Flow Rate FiO2 06/13/24 09:50 71 06/13/24 09:48 127/69 06/13/24 09:00 98.3 16 94 98.3 06/13/24 08:00 Room Air* 0 21 Intake/Output Intake and Output 06/13/24 07:00 Intake Total 1600 ml Output Total 1600 ml Balance 0 ml Intake Oral 1550 ml IV Total 50 ml Output Urine Total 1600 ml # Bowel Movements 1 General Appearance: Alert, Oriented X3, Cooperative, No acute distress Cardiovascular: Regular rate, Normal S1, Normal S2 Abdomen: Normal bowel sounds, Soft, No tenderness Extremities: No edema Medications Current Medications Medications Dose Ordered Sig/Jose Route Start Time Stop Time Status Last Admin Dose Admin Sodium Chloride 10 ml Q8HR IV 06/11/24 22:00 06/13/24 06:13 10 ML Lorazepam 0.5 mg Q6HP PRN PO 06/11/24 19:00 Al Hydrox/Mg Hydrox/Simethicone 30 ml Q6HP PRN PO 06/11/24 19:00 Acetaminophen 650 mg Q6HP PRN PO 06/11/24 19:00 Acetaminophen/ Hydrocodone Bitart 1 tab Q4HP PRN PO 06/11/24 19:00 06/12/24 23:53 1 TAB Ondansetron HCl 4 mg Q4HP PRN IV 06/11/24 19:00 Morphine Sulfate 2 mg Q4HPRN PRN IV 06/11/24 19:00 06/11/24 22:00 2 MG Enoxaparin Sodium 30 mg DAILY SC 06/12/24 10:00 06/13/24 09:45 30 MG Digoxin 0.125 mg DAILY PO 06/12/24 10:00 06/13/24 09:50 0.125 MG Flecainide Acetate 50 mg BID PO 06/11/24 22:00 06/13/24 09:44 50 MG Sennosides 17.2 mg DAILYP PRN PO 06/11/24 19:00 06/11/24 22:00 17.2 MG Atenolol 25 mg BID PO 06/11/24 22:00 06/13/24 09:48 25 MG Atorvastatin Calcium 10 mg HS PO 06/11/24 22:00 06/12/24 21:33 10 MG Nitroglycerin 0.4 mg Q5MINP PRN SL 06/11/24 19:00 Morphine Sulfate 2 mg Q30M PRN IV 06/11/24 19:00 Cholecalciferol 4,000 unit DAILY PO 06/12/24 10:00 06/13/24 09:45 4,000 UNIT Ergocalciferol 50,000 unit Q7D PO 06/11/24 20:00 06/11/24 21:09 50,000 UNIT Pantoprazole Sodium 40 mg DAILY IV 06/12/24 10:00 06/13/24 09:44 40 MG Ceftriaxone Sodium 50 ml @ 100 mls/hr DAILY@09 IV 06/12/24 07:00 06/13/24 10:45 100 MLS/HR Enteral Nutritional Formula 240 ml TID PO 06/13/24 14:00 UNV Laboratory Results Laboratory Tests 06/13/24 06:30 Chemistry Test 06/13/24 06:30 Calcium Level 9.2 mg/dL (8.7-10.4) Magnesium Level 2.2 mg/dL (1.6-2.6) Microbiology Microbiology Date/Time Source Procedure Growth Status 06/11/24 21:08 Nose MRSA Screen - Final Complete Assessment/Plan Assessment/Plan Right hip revision of ORIF AFib UTI Plan IV Rocephin Physical therapy Pain control as needed Plan discussed with: Patient Date of Service: Jun 13, 2024 Billing Provider: SANDRA MONTEJO MD Common Visit Codes: [id number] INP/OBS CARE(HIGH) SANDRA MONTEJO MD Jun 13, 2024 11:44
[2024-06-13] MEDS: Ensure HIGH Protein Vanilla 8oz Bottle PO SCH (14:00)
[2024-06-13] MEDS: MELATONIN 5 MG TAB PO SCH (22:00)
[2024-06-14] VITALS (7 sets, daily range): BP systolic 110–128; BP diastolic 56–61; PULSE 64–89; RESP 16–18; TEMP 97.2–99.4; O2SAT 95–97
--- NOTE | 2024-06-14 15:27 | DVHPN2 ---
Subjective Seen and examined at bedside. PT working with the patient Changes from previous H/P or p: No Changes Eyes: No Pain, No Vision change, No Conjunctivae inflammation, No Eyelid inflammation, No Other, No Redness ENT: No Ear pain, No Ear discharge, No Nose pain, No Nose discharge, No Nose congestion, No Mouth pain, No Mouth swelling, No Throat pain, No Throat swelling, No Other Cardiovascular: No Chest Pain, No Palpitations, No Orthopnea, No Paroxysmal Noc. Dyspnea, No Edema, No Lt Headedness, No Other Respiratory: No Cough, No Dry, No Shortness of breath, No SOB with excertion, No Wheezing, No Hemoptysis, No Pleuritic Pain, No Sputum, No Other Gastrointestinal: No Nausea, No Vomiting, No Abdominal Pain, No Diarrhea, No Constipation, No Melena, No Hematochezia, No Other Genitourinary: No Dysuria, No Frequency, No Incontinence, No Hematuria, No Retention, No Other Musculoskeletal: No other, No neck pain, No shoulder pain, No arm pain, No back pain, No hand pain, No leg pain, No foot pain Skin: No Rash, No Lesions, No Jaundice, No Bruising, No Other Objective Vitals Vital Signs Date Time Temp Pulse Resp B/P (MAP) Pulse Ox O2 Delivery O2 Flow Rate FiO2 06/14/24 13:00 98.4 66 16 118/61 (80) 95 98.4 06/14/24 08:00 Room Air* 0 21 Intake/Output Intake and Output 06/14/24 07:00 Intake Total 1150 ml Output Total 1150 ml Balance 0 ml Intake Oral 1100 ml IV Total 50 ml Output Urine Total 1150 ml Exam Gen: in bed NAD Cvs: N S1/S2, RRR Resp: Diminished Abd: Soft, NT Paper Mill Manager: AAO x 4 Ext: Right Hip Dressing CDI Medications Current Medications Medications Dose Ordered Sig/Jose Route Start Time Stop Time Status Last Admin Dose Admin Sodium Chloride 10 ml Q8HR IV 06/11/24 22:00 06/14/24 14:02 10 ML Lorazepam 0.5 mg Q6HP PRN PO 06/11/24 19:00 Al Hydrox/Mg Hydrox/Simethicone 30 ml Q6HP PRN PO 06/11/24 19:00 Acetaminophen 650 mg Q6HP PRN PO 06/11/24 19:00 Acetaminophen/ Hydrocodone Bitart 1 tab Q4HP PRN PO 06/11/24 19:00 06/14/24 09:46 1 TAB Ondansetron HCl 4 mg Q4HP PRN IV 06/11/24 19:00 Morphine Sulfate 2 mg Q4HPRN PRN IV 06/11/24 19:00 06/13/24 21:36 2 MG Enoxaparin Sodium 30 mg DAILY SC 06/12/24 10:00 06/14/24 09:46 30 MG Digoxin 0.125 mg DAILY PO 06/12/24 10:00 06/14/24 09:47 0.125 MG Flecainide Acetate 50 mg BID PO 06/11/24 22:00 06/14/24 09:47 50 MG Sennosides 17.2 mg DAILYP PRN PO 06/11/24 19:00 06/11/24 22:00 17.2 MG Atenolol 25 mg BID PO 06/11/24 22:00 06/14/24 09:55 25 MG Atorvastatin Calcium 10 mg HS PO 06/11/24 22:00 06/13/24 21:28 10 MG Nitroglycerin 0.4 mg Q5MINP PRN SL 06/11/24 19:00 Morphine Sulfate 2 mg Q30M PRN IV 06/11/24 19:00 Cholecalciferol 4,000 unit DAILY PO 06/12/24 10:00 06/14/24 09:47 4,000 UNIT Ergocalciferol 50,000 unit Q7D PO 06/11/24 20:00 06/11/24 21:09 50,000 UNIT Pantoprazole Sodium 40 mg DAILY IV 06/12/24 10:00 06/14/24 09:44 40 MG Ceftriaxone Sodium 50 ml @ 100 mls/hr DAILY@09 IV 06/12/24 07:00 06/14/24 09:44 100 MLS/HR Enteral Nutritional Formula 240 ml TID PO 06/13/24 14:00 06/14/24 14:02 240 ML Melatonin 10 mg HS PO 06/13/24 22:00 Laboratory Results Laboratory Tests 06/13/24 06:30 Microbiology Microbiology Date/Time Source Procedure Growth Status 06/11/24 21:08 Nose MRSA Screen - Final Complete Assessment/Plan Assessment/Plan # Right Hip Revision [place] [facility] [place]. Paulino 06/10/24 - PT Eval # A-Fibb - Cont Meds - Gradually will start full anticoagulation due to large Hematoma last visit # UTI - Cont Rocephin # Deconditioned - PT eval Plan discussed with: Patient My Orders Orders - DAMARIS SANCHEZ MD Procedure Category Date Status Time * Pulp Tester CONS 06/13/24 Transmitted Consult Date of Service: Jun 14, 2024 Billing Provider: DAMARIS SANCHEZ MD Common Visit Codes: [id number] INP/OBS CARE(HIGH) DAMARIS SANCHEZ MD Jun 14, 2024 15:27
[2024-06-15] VITALS (8 sets, daily range): BP systolic 110–134; BP diastolic 62–71; PULSE 61–80; RESP 16–18; TEMP 36.9; O2SAT 94–97
--- NOTE | 2024-06-15 15:07 | DVHPN2 ---
Subjective Seen and examined at bedside. PT working with the patient, making some progress. Changes from previous H/P or p: No Changes Eyes: No Pain, No Vision change, No Conjunctivae inflammation, No Eyelid inflammation, No Other, No Redness ENT: No Ear pain, No Ear discharge, No Nose pain, No Nose discharge, No Nose congestion, No Mouth pain, No Mouth swelling, No Throat pain, No Throat swelling, No Other Cardiovascular: No Chest Pain, No Palpitations, No Orthopnea, No Paroxysmal Noc. Dyspnea, No Edema, No Lt Headedness, No Other Respiratory: No Cough, No Dry, No Shortness of breath, No SOB with excertion, No Wheezing, No Hemoptysis, No Pleuritic Pain, No Sputum, No Other Gastrointestinal: No Nausea, No Vomiting, No Abdominal Pain, No Diarrhea, No Constipation, No Melena, No Hematochezia, No Other Genitourinary: No Dysuria, No Frequency, No Incontinence, No Hematuria, No Retention, No Other Musculoskeletal: No other, No neck pain, No shoulder pain, No arm pain, No back pain, No hand pain, No leg pain, No foot pain Skin: No Rash, No Lesions, No Jaundice, No Bruising, No Other Objective Vitals Vital Signs Date Time Temp Pulse Resp B/P (MAP) Pulse Ox O2 Delivery O2 Flow Rate FiO2 06/15/24 13:00 98.4 80 16 110/67 (81) 94 98.4 06/15/24 08:20 Room Air* 0 95 21 Intake/Output Intake and Output 06/15/24 07:00 Intake Total 1610 ml Output Total 1800 ml Balance -190 ml Intake Oral 1560 ml IV Total 50 ml Output Urine Total 1800 ml Exam Gen: in bed NAD Cvs: N S1/S2, RRR Resp: Diminished Abd: Soft, NT Account Strategist: AAO x 4 Ext: Right Hip Dressing CDI Medications Current Medications Medications Dose Ordered Sig/Jose Route Start Time Stop Time Status Last Admin Dose Admin Sodium Chloride 10 ml Q8HR IV 06/11/24 22:00 06/15/24 06:12 10 ML Lorazepam 0.5 mg Q6HP PRN PO 06/11/24 19:00 Al Hydrox/Mg Hydrox/Simethicone 30 ml Q6HP PRN PO 06/11/24 19:00 Acetaminophen 650 mg Q6HP PRN PO 06/11/24 19:00 Acetaminophen/ Hydrocodone Bitart 1 tab Q4HP PRN PO 06/11/24 19:00 06/15/24 07:00 1 TAB Ondansetron HCl 4 mg Q4HP PRN IV 06/11/24 19:00 Morphine Sulfate 2 mg Q4HPRN PRN IV 06/11/24 19:00 06/13/24 21:36 2 MG Enoxaparin Sodium 30 mg DAILY SC 06/12/24 10:00 06/15/24 11:11 30 MG Digoxin 0.125 mg DAILY PO 06/12/24 10:00 06/15/24 11:11 0.125 MG Flecainide Acetate 50 mg BID PO 06/11/24 22:00 06/15/24 11:12 50 MG Sennosides 17.2 mg DAILYP PRN PO 06/11/24 19:00 06/14/24 22:40 17.2 MG Atenolol 25 mg BID PO 06/11/24 22:00 06/15/24 11:12 25 MG Atorvastatin Calcium 10 mg HS PO 06/11/24 22:00 06/14/24 22:43 10 MG Nitroglycerin 0.4 mg Q5MINP PRN SL 06/11/24 19:00 Morphine Sulfate 2 mg Q30M PRN IV 06/11/24 19:00 Cholecalciferol 4,000 unit DAILY PO 06/12/24 10:00 06/15/24 11:11 4,000 UNIT Ergocalciferol 50,000 unit Q7D PO 06/11/24 20:00 06/11/24 21:09 50,000 UNIT Pantoprazole Sodium 40 mg DAILY IV 06/12/24 10:00 06/15/24 11:10 40 MG Ceftriaxone Sodium 50 ml @ 100 mls/hr DAILY@09 IV 06/12/24 07:00 06/15/24 12:04 100 MLS/HR Enteral Nutritional Formula 240 ml TID PO 06/13/24 14:00 06/14/24 22:45 240 ML Melatonin 10 mg HS PO 06/13/24 22:00 06/14/24 22:41 10 MG Laboratory Results Laboratory Tests 06/13/24 06:30 Microbiology Microbiology Date/Time Source Procedure Growth Status 06/11/24 21:08 Nose MRSA Screen - Final Complete Assessment/Plan Assessment/Plan # Right [place] Rev[place] [facility] [place] Paulino 06/10/24 - PT Eval # A-Fibb - Cont Meds - Gradually will start full anticoagulation due to large Hematoma last visit # UTI - Cont Rocephin # Deconditioned - PT eval Plan discussed with: Patient Date of Service: Jun 15, 2024 Billing Provider: DAMARIS SANCHEZ MD Common Visit Codes: [id number] INP/OBS CARE(MOD) DAMARIS SANCHEZ MD Jun 15, 2024 15:07
--- NOTE | 2024-06-15 15:31 | DVHDS2 ---
Discharge Summary Date of Admission Jun 11, 2024 at 18:37 Date of Discharge: Jun 15, 2024 Labs/Diagnostic Data: Laboratory Results Test 06/13/24 06:30 White Blood Count 11.1 10^3/uL (4.4-10.8) Red Blood Count 3.51 10^6/uL (4.0-5.20) Hemoglobin 11.6 g/dL (12.2-16.2) Hematocrit 34.0 % (36.0-46.0) Mean Corpuscular Volume 97.0 fL (80.0-100.0) Mean Corpuscular Hemoglobin 33.0 pg (28.0-32.0) Mean Corpuscular Hemoglobin Concent 34.0 g/dL (32.0-36.0) Red Cell Distribution Width 19.0 % (11.8-14.3) Platelet Count 316 10^3/uL (140-450) Mean Platelet Volume 6.9 fL (6.9-10.8) Neutrophils (%) (Auto) 71.8 % (37.0-80.0) Lymphocytes (%) (Auto) 18.2 % (10.0-50.0) Monocytes (%) (Auto) 8.8 % (0.0-12.0) Eosinophils (%) (Auto) 0.9 % (0.0-7.0) Basophils (%) (Auto) 0.3 % (0.0-2.0) Neutrophils # (Auto) 8.0 10 ^3/uL (1.6-8.6) Lymphocytes # (Auto) 2.0 10 ^3/uL (0.4-5.4) Monocytes # (Auto) 1.0 10 ^3/uL (0-1.3) Eosinophils # (Auto) 0.1 10 ^3/uL (0-0.8) Basophils # (Auto) 0 10 ^3/uL (0-0.2) Nucleated Red Blood Cells 0.1 % Sodium Level 136 mmol/L (136-145) Potassium Level 4.0 mmol/L (3.5-5.1) Chloride Level 101 mmol/L (98-107) Carbon Dioxide Level 29 mmol/L (20-31) Anion Gap 6 (5-15) Blood Urea Nitrogen 7 mg/dL (9-23) Creatinine 0.43 mg/dL (0.550-1.02) Glomerular Filtration Rate Calc 96 mL/min (>90) BUN/Creatinine Ratio 16.3 (10.0-20.0) Serum Glucose 107 mg/dL (74-106) Calcium Level 9.2 mg/dL (8.7-10.4) Magnesium Level 2.2 mg/dL (1.6-2.6) Other Laboratory Tests 06/13/24 06:30 Brief Hx & Hospital Course: The patient is a 83-year-old female with multiple past medical history including hypertension, angina, and AFib who presented to [facility] for evaluation of failed right ORIF at [facility] on 05/12/2024, needing higher level of care for hip surgery. Patient was seen and evaluated at the facility, underwent revision of right hip surgery on 06/10/2024 successfully with no complication. Postoperative, she went into a supraventricular tachycardia in the 170s, she has known reverted to sinus rhythm. Patient currently on flecainide, digoxin, and Eliquis as an outpatient, this medication were held prior to surgery. Stress radiography were then completed to ensure adequate reduction of the fracture, stress radiographs were then done to ensure that there was no other retained hardware. Patient will be discharged home with home health. See PCP in 1 week Condition at Discharge: Poor Final Diagnosis/Problems List # Right Hip Revision at [facility] [place] [facility] [place]. Paulino 06/10/24 - PT Eval # A-Fibb - Resume Meds # UTI - Resolved # Deconditioned - PT eval Discharge Disposition: Home with Health Services Discharge Instruct/Medications Diet: Regular Activity: Light activity Follow Up/Referral: PCP in 1 week Discharge Statement: "Patient was advised to return to the ER or call 911 if any headaches, dizziness, shortness of breath, chest pain, abdominal pain, bleeding, fevers, or worsening of medical condition. Patient was counseled about treatment plan, medications, possible side effects, patientverbalized understanding. All questions were answered to the best of my ability. This discharge took greater then 30 minutes in planning, reviewing documentation, counseling the patient, and discussing with other team members." ASSESSMENT ASSESSMENT Assessment Date of Service: Jun 15, 2024 Billing Provider: DAMARIS SANCHEZ MD Common Visit Codes: 51967-OLE/OBS DISCH DAY >30min DAMARIS SANCHEZ MD Jun 15, 2024 15:31
--- NOTE | 2024-06-20 15:19 | ECG ---
[facility] Test Date: 2024-06-09 Test Time: 17:07:37 Pat Name: EFRAÍN EDGE Department: Room: 0232T A Gender: F Clinical Research Administrator: SIA : [id number] Requested By: DAMARIS SANCHEZ Order Number: [id number] Reading MD: Anatoly Heller Measurements Intervals [place] Rate: 80 P: 71 OR: 153 QRS: -17 QRSD: 89 T: 45 QT: 360 QTc: 416 Interpretive Statements Sinus rhythm Borderline left axis deviation Low voltage, precordial leads Consider anterior infarct Electronically Signed On 06-21-2024 9:08:11 PST by Anatoly Heller Please click the below link to view image of tracing.
== END 2024-06-15 21:20 | disposition home health service (06) | DRG 565 ==
LOC: TELE-DOU 18:37 → TELE-EAST 18:46
PROVIDERS: ADMIT Internal Medicine; ATTEND Internal Medicine
DX: S72.141K Displaced intertrochanteric fracture of right femur, subsequent encounter for closed fracture with nonunion (principal); I47.10 Supraventricular tachycardia, unspecified; N39.0 Urinary tract infection, site not specified; I48.91 Unspecified atrial fibrillation; I10 Essential (primary) hypertension; F41.9 Anxiety disorder, unspecified; K21.9 Gastro-esophageal reflux disease without esophagitis; E78.5 Hyperlipidemia, unspecified; Z90.49 Acquired absence of other specified parts of digestive tract; Z88.1 Allergy status to other antibiotic agents; W18.39XD Other fall on same level, subsequent encounter
CPT/HCPCS: 36415; 80048; 83735; 85025; 87081; 93005; 97110; 97116; 97163; 97530; G0378; J2470

== ENCOUNTER → 2024-08-30 | Outpatient (CLI) | payer OTHER ==
[2024-08-30 13:54] LABS: Basophils # (auto) 0 10 ^3/uL (0-0.2); Basophils % (auto) 0.4 % (0.0-2.0); Eosinophils # (auto) 0.1 10 ^3/uL (0-0.8); Eosinophils % (auto) 1.2 % (0.0-7.0); Hematocrit 39.5 % (36.0-46.0); Hemoglobin 13.2 g/dL (12.2-16.2); Lymphocytes % (auto) 33.3 % (10.0-50.0); Mean Corpuscular Hemoglobin 32.6 pg (28.0-32.0); Mean Corpuscular Hgb Conc. 33.5 g/dL (32.0-36.0); Mean Corpuscular Volume 97.2 fL (80.0-100.0); Monocytes # (auto) 0.5 10 ^3/uL (0-1.3); Monocytes % (auto) 5.9 % (0.0-12.0); Neutrophils # (auto) 5.2 10 ^3/uL (1.6-8.6); Neutrophils % (auto) 59.2 % (37.0-80.0); Platelet Count (auto) 241 10^3/uL (140-450); Red Blood Cells 4.06 10^6/uL (4.0-5.20); Red Cell Distribution Width 14.4 % (11.8-14.3); White Blood Cell 8.9 10^3/uL (4.4-10.8)
[2024-08-30 14:26] LABS: Alanine Aminotransferase 14 U/L (7-40); Alkaline Phosphatase 107 U/L (46-116); Anion Gap 7 (5-15); Aspartate Aminotransferase 16 U/L (13-40); BUN/Creatinine Ratio 18.6 (10.0-20.0); Bilirubin, Total 0.3 mg/dL (0.2-1.0); Blood Urea Nitrogen 13 mg/dL (9-23); Calcium 9.5 mg/dL (8.7-10.4); Carbon Dioxide 29 mmol/L (20-31); Chloride 103 mmol/L (98-107); Glucose 95 mg/dL (74-106); Sodium 139 mmol/L (136-145); Total Protein 6.1 g/dL (5.7-8.2)
== END | disposition home or self-care (01) ==
LOC: LAB 13:12
PROVIDERS: ATTEND Internal Medicine
DX: I10 Essential (primary) hypertension (principal); I48.0 Paroxysmal atrial fibrillation; D64.9 Anemia, unspecified
CPT/HCPCS: 36415; 80053; 83735; 84439; 84443; 85025

== ENCOUNTER 2024-12-24 12:01 | Outpatient (CLI) | payer OTHER | END 2024-12-24 17:00 | disposition home or self-care (01) | LOC: LAB 12:01 | PROVIDERS: ATTEND Family Medicine | DX: Z01.812 Encounter for preprocedural laboratory examination (principal); D48.5 Neoplasm of uncertain behavior of skin ==

== ENCOUNTER → 2025-04-22 | Outpatient (CLI) | payer OTHER ==
[2025-04-22 13:32] LABS: Blood Urea Nitrogen 9.0 mg/dL (9-23)
== END | disposition home or self-care (01) ==
LOC: LAB 12:27
PROVIDERS: ATTEND Internal Medicine
DX: R51.9 Headache, unspecified (principal)
CPT/HCPCS: 36415; 82565; 84520

== ENCOUNTER 2025-05-02 14:01 | Outpatient (CLI) | payer OTHER ==
[2025-05-02 14:56] LABS: Blood Urea Nitrogen 10.0 mg/dL (9-23)
== END 2025-05-02 17:00 | disposition home or self-care (01) ==
LOC: LAB 14:01
PROVIDERS: ATTEND Internal Medicine
DX: R51.9 Headache, unspecified (principal)
CPT/HCPCS: 36415; 82565; 84520

== ENCOUNTER → 2025-07-08 | Outpatient (CLI) | payer OTHER ==
[2025-07-08 15:07] LABS: Blood Urea Nitrogen 10.0 mg/dL (9-23)
== END | disposition home or self-care (01) ==
LOC: LAB 13:55
PROVIDERS: ATTEND Internal Medicine
DX: M54.81 Occipital neuralgia (principal)
CPT/HCPCS: 36415; 82565; 84520